=== PATIENT | female | born 1945 | race Caucasian/White ===

== ENCOUNTER → 2017-03-13 | Outpatient (CLI) | payer OTHER ==
[~2017-03-13] MED LIST: ALL300; CALC500C70 PO; CYAN500T PO; DOCU-94 PO; FOLI1TAB7 PO; FRS/40 PO; LEVE750T PO; LEVO75TA5 PO; NORT50CA PO; NXM/40 PO; POLY335019 PO; POTA20TA16 PO; SIMV40TA2 PO; ZONI100C39 PO; [UNRECOGNIZED DRUG - CODE] OR
[2017-03-13 09:45] LABS: BASO % 0.2 %; BASO ABS # 0.01 K/uL (0-0.2); COMPLETE YES; EOS % 0.5 %; HEMATOCRIT 35.1 % (37-52); IG% 0.2 %; LYMPH % 47.3 %; LYMPH ABS # 1.92 K/uL (1.2-3.4); MEAN CELL VOLUME 98.9 fL (80-100); MEAN CORPUSCULAR HEMOGLOBIN 33.2 pg (25-34); MEAN CORPUSCULAR HGB CONC 33.6 g/dl (32-36); MEAN PLATELET VOLUME 9.9 fL (7.4-10.4); MONO % 8.9 %; NEUT % 42.9 %; PLATELET COUNT 147 K/uL (130-400); RED BLOOD COUNT 3.55 M/uL (4.2-6.1); WHITE BLOOD COUNT 4.06 K/uL (4.8-10.8)
[2017-03-13 09:56] LABS: ALT/SGPT 20 U/L (12-78); AST/SGOT 15 U/L (15-37); BLOOD UREA NITROGEN 13 mg/dl (7-18); BUN/CREATININE RATIO 18.8 (10-20); CALCIUM 8.8 mg/dl (8.5-10.1); CARBON DIOXIDE 28 mmol/L (21-32); CHLORIDE 110 mmol/L (98-107); CREATININE 0.67 mg/dl (0.60-1.40); GLUCOSE 92 mg/dl (70-99); POTASSIUM 3.3 mmol/L (3.5-5.1); SODIUM 142 mmol/L (136-145)
[2017-03-13 10:06] LABS: ALB/GLOB RATIO 1.1 (0.9-2); ALKALINE PHOSPHATASE 119 U/L (45-117)
== END | disposition home or self-care (01) ==
LOC: EDSEX → C.LABSPEC 09:24
PROVIDERS: ATTEND Family Medicine
DX: F44.5 Conversion disorder with seizures or convulsions (principal); E03.9 Hypothyroidism, unspecified

== ENCOUNTER → 2017-03-16 | Outpatient (CLI) | payer OTHER | END | disposition home or self-care (01) | LOC: EDSEX → C.LABUPBEA 09:59 | PROVIDERS: ATTEND Nurse Practitioner Family | DX: F44.5 Conversion disorder with seizures or convulsions (principal) ==

== ENCOUNTER → 2017-03-20 | Outpatient (CLI) | payer OTHER | LOC: C.LABUPBEA 09:04 | PROVIDERS: ATTEND Nurse Practitioner Family | DX: M62.81 Muscle weakness (generalized) (principal) ==

== ENCOUNTER → 2017-03-27 | Outpatient (CLI) | payer OTHER ==
[2017-03-27 10:16] LABS: BLOOD UREA NITROGEN 19 mg/dl (7-18); BUN/CREATININE RATIO 28.9 (10-20); CALCIUM 9.4 mg/dl (8.5-10.1); CARBON DIOXIDE 30 mmol/L (21-32); CHLORIDE 109 mmol/L (98-107); CREATININE 0.66 mg/dl (0.60-1.20); GLUCOSE 96 mg/dl (70-99); POTASSIUM 3.6 mmol/L (3.5-5.1); SODIUM 142 mmol/L (136-145)
== END ==
LOC: C.LABUPBEA 08:57
PROVIDERS: ATTEND Nurse Practitioner Family
DX: F44.5 Conversion disorder with seizures or convulsions (principal)

== ENCOUNTER → 2017-04-08 | Outpatient (CLI) | payer OTHER ==
[2017-04-08 10:25] LABS: BLOOD UREA NITROGEN 15 mg/dl (7-18); BUN/CREATININE RATIO 20.6 (10-20); CALCIUM 9.6 mg/dl (8.5-10.1); CARBON DIOXIDE 28 mmol/L (21-32); CHLORIDE 108 mmol/L (98-107); CREATININE 0.72 mg/dl (0.60-1.20); GLUCOSE 96 mg/dl (70-99); POTASSIUM 3.8 mmol/L (3.5-5.1); SODIUM 143 mmol/L (136-145)
== END ==
LOC: C.LABUPBEA 09:16
PROVIDERS: ATTEND Nurse Practitioner Family
DX: E83.118 Other hemochromatosis (principal); F44.5 Conversion disorder with seizures or convulsions

== ENCOUNTER → 2017-04-15 | Outpatient (CLI) | payer OTHER ==
[2017-04-15 08:32] LABS: HEMATOCRIT 35.6 % (37-47); MEAN CELL VOLUME 103.5 fL (80-100); MEAN CORPUSCULAR HEMOGLOBIN 34.6 pg (25-34); MEAN CORPUSCULAR HGB CONC 33.4 g/dl (32-36); MEAN PLATELET VOLUME 10.6 fL (7.4-10.4); PLATELET COUNT 177 K/uL (130-400); RED BLOOD COUNT 3.44 M/uL (4.2-5.4); WHITE BLOOD COUNT 4.76 K/uL (4.8-10.8)
== END ==
LOC: C.LABCC 07:51
PROVIDERS: ATTEND Internal Medicine
DX: E83.119 Hemochromatosis, unspecified (principal)

== ENCOUNTER → 2017-04-21 | Outpatient (CLI) | payer OTHER ==
[2017-04-21 11:01] LABS: BASO % 0.4 %; BASO ABS # 0.02 K/uL (0-0.2); COMPLETE YES; EOS % 0.7 %; HEMATOCRIT 36.5 % (37-47); IG% 0.2 %; LYMPH % 43.4 %; LYMPH ABS # 1.99 K/uL (1.2-3.4); MEAN CELL VOLUME 104.3 fL (80-100); MEAN CORPUSCULAR HEMOGLOBIN 33.7 pg (25-34); MEAN CORPUSCULAR HGB CONC 32.3 g/dl (32-36); MEAN PLATELET VOLUME 10.4 fL (7.4-10.4); MONO % 9.6 %; NEUT % 45.7 %; PLATELET COUNT 176 K/uL (130-400); WHITE BLOOD COUNT 4.59 K/uL (4.8-10.8)
[2017-04-21 11:22] LABS: ALT/SGPT 20 U/L (12-78); BLOOD UREA NITROGEN 13 mg/dl (7-18); BUN/CREATININE RATIO 18.6 (10-20); CALCIUM 9.2 mg/dl (8.5-10.1); CARBON DIOXIDE 28 mmol/L (21-32); CHLORIDE 110 mmol/L (98-107); GLUCOSE 96 mg/dl (70-99); POTASSIUM 3.6 mmol/L (3.5-5.1); SODIUM 142 mmol/L (136-145)
[2017-04-21 11:33] LABS: ALB/GLOB RATIO 1.1 (0.9-2); ALKALINE PHOSPHATASE 97 U/L (45-117); AST/SGOT 19 U/L (15-37)
== END | disposition home or self-care (01) ==
LOC: C.LABCC 08:43
PROVIDERS: ATTEND Internal Medicine
DX: R56.9 Unspecified convulsions (principal); Z51.81 Encounter for therapeutic drug level monitoring; Z79.899 Other long term (current) drug therapy

== ENCOUNTER → 2017-04-29 | Day surgery (SDC) | payer OTHER ==
[~2017-04-29] VITALS: Ht 165.1 cm; Wt 71.8 kg
[~2017-04-29] MED LIST changes: +LIDOCAINE HCL 2% 2 ML VIAL (20MG/ML) ONE; +PROPOFOL IV EMULSION 10 MG/ML 20 ML VIAL IV ONE; +SODIUM CHLORIDE 0.9% 500ML 500 ML IV ONE
--- NOTE | 2017-04-29 10:05 | Endo History and Physical ---
History & Physical Date of Service: Apr 29, 2017. Chief Complaint: Odynophagia Referring Physician: Adrienne History of Present Illness 71 yo CF who presents for EGD secondary to Odynophagia. Physical Exam General Appearance: WD/WN, no apparent distress Respiratory/Chest: Auscultation: breath sounds normal Cardiovascular: Heart Auscultation: RRR Abdomen: Bowel Sounds: normal Inspection & Palpation: soft, non-distended, no tenderness, guarding & rebound Assessment and Plan Assessment: 71 yo CF who presents for EGD secondary to Odynophagia. Plan: Proceed with colonoscopy.
[2017-04-29 10:37] VITALS: Ht 165.1 cm; Wt 71.8 kg
--- NOTE | 2017-04-29 11:28 | Discharge Instructions ---
Endoscopy Patient Instructions Date / Procedure(s) Performed Apr 29, 2017. EGD Allergy Information Coded Allergies: Hydrocortisone (Unverified Allergy, Intermediate, DELIRIUM, 04/29/17) Phenobarbital (Unverified Allergy, Intermediate, RASH, 04/29/17) Acetaminophen (Unverified Allergy, Unknown, GI SYMPTOMS, 04/29/17) states due to liver problems Uncoded Allergies: LIMICTAL (Allergy, Intermediate, RASH, 04/29/17) Discharge Date / Findings Apr 29, 2017. Brushings for Anita esophagitis Medication Instructions Stopped Medication(s): ALL MEDICATION GIVEN AT 0830 OK to resume all medications today as prescribed Reported Home Medications Medications Dose Route/Sig Max Daily Dose Days Date Category Miralax (Polyethylene Glycol 3350) 1 Pow 17 Gm PO DAILY 04/29/17 Reported Os-Marco A 500 Plus D (Calcium/Vitamin D) Tab 1 Tab PO DAILY 04/29/17 Reported Keppra (Levetiracetam) 750 Mg Tab 1,500 Mg PO BID 04/29/17 Reported Zonegran (Zonisamide) 100 Mg Cap 400 Mg PO HS 04/29/17 Reported Lasix (Furosemide) 40 Mg Tab 40 Mg PO BID 04/29/17 Reported Vitamin B-12 (Cyanocobalamin) 500 Mcg Tab 500 Mcg PO DAILY 04/29/17 Reported Klor-Con (Potassium Chloride) 20 Meq Tabcr 20 Meq PO TID 04/29/17 Reported Vimpat (Lacosamide) 200 Mg/20 Ml Inj OR BID 04/29/17 Reported Levothyroxine Sodium 75 Mcg Tab 1 Tab PO DAILY 30 04/29/17 Reported Zocor (Simvastatin) 40 Mg Tab 40 Mg PO QPM 04/29/17 Reported Pamelor (Nortriptyline HCl) 50 Mg Cap 50 Mg PO HS 04/29/17 Reported Nexium (Esomeprazole Magnesium) 40 Mg Capcr 40 Mg PO DAILY 04/29/17 Reported Folvite (Folic Acid) 1 Mg Tab 1 Tab PO DAILY 90 04/29/17 Reported Colace (Docusate Sodium) 100 Mg Cap 1 Cap PO DAILY 15 04/29/17 Reported Allopurinol 300 Mg Tab BID 04/29/17 Reported Provider Instructions Activity Restrictions - No exercising or heavy lifting for 24 hours. - Do not drink alcohol the day of the procedure. - Do not drive a car or operate machinery until the day after the procedure. - Do not make any important decisions or sign important papers in 24 hours after the procedure. Following Day: - Return to full activity which may include returning to work/school. Diet Start your diet with liquids and light foods (jello, soup, juice, toast). Then eat your usual diet if not nauseated. Treatment For Common After Affects For mild abdominal pain, bloating, or excessive gas: - Rest - Eat lightly - Lie on right side Follow-Up Information Follow-up with DR. MCCORD as scheduled Anesthesia Information What You Should Know You have had a procedure that required some medicine to reduce anxiety and discomfort. This treatment is called moderate sedation. After receiving the treatment, you may be sleepy, but you will be able to breathe on your own. The effects of the treatment may last for several hours. Follow these instructions along with Activity/Diet recommendations noted above: * Do NOT do anything where dizziness or clumsiness would be dangerous. * Rest quietly at home today, then you can be up and about tomorrow. * Have a responsible person stay with you the rest of today. * You may have had an I.V. today. If so, you may take the dressing off later today. Recommendations Call your doctor if: * Trouble breathing * Continuous vomiting for more than 24 hours * Temperature above 101 degrees * Severe abdominal pain or bloating * Pain not relieved by pain medicine ordered * There is increased drainage or redness from any incision * A large amount of rectal bleeding greater than 2-3 tablespoons. (If you had a polyp/s removed or have hemorrhoids, a small amount of blood - from the rectum is to be expected.) * You have any unanswered questions or concerns. IN THE EVENT OF A SERIOUS EMERGENCY, GO TO THE NEAREST EMERGENCY ROOM Your discharge instructions were prepared by provider Yeison Brewer. Patient Instructions Signature Page Faye Aragon Patient (or Guardian) Signature/Date: I have read and understand the instructions given to me by my caregivers. Caregiver/RN/Doctor Signature/Date: The above-named patient and/or guardian has received patient instructions on this date. + Original Patient Signature Page (only) stays with chart. Please make copy for patient.
--- NOTE | 2017-04-29 11:50 | Anesthesiology Progress Note ---
Anesthesia Post Op Note Date & Time Apr 29, 2017 at 11:50 Vital Signs Pain Intensity: 0 Vital Signs Past 12 Hours Date Time Temp Pulse Resp B/P (MAP) Pulse Ox O2 Delivery O2 Flow Rate FiO2 04/29/17 11:43 65 18 106/73 (84) 100 Room Air 04/29/17 11:28 70 18 121/68 (85) 98 Room Air 04/29/17 10:53 36.6 64 18 146/86 (106) 98 Room Air Notes Mental Status: alert / awake / arousable, participated in evaluation Pt Amnestic to Procedure: Yes Nausea / Vomiting: adequately controlled Pain: adequately controlled Airway Patency, RR, SpO2: stable & adequate BP & HR: stable & adequate Hydration State: stable & adequate Anesthetic Complications: no major complications apparent
[2017-04-29 11:58] VITALS: BP 135/81; PULSE 64; O2SAT 99
--- NOTE | 2017-04-29 12:13 | GI REPORT ---
Procedure Date: 04/29/2017 10:50 AM Procedure: Upper GI endoscopy Indications: Odynophagia Medicines: Monitored Anesthesia Care Complications: No immediate complications. Estimated Blood Loss: Estimated blood loss: none. Procedure: Pre-Anesthesia Assessment: - Prior to the procedure, a History and Physical was performed, and patient medications and allergies were reviewed. The patient's tolerance of previous anesthesia was also reviewed. The risks and benefits of the procedure and the sedation options and risks were discussed with the patient. All questions were answered, and informed consent was obtained. Prior Anticoagulants: The patient has taken aspirin, last dose was 1 day prior to procedure. ASA Grade Assessment: III - A patient with severe systemic disease. After reviewing the risks and benefits, the patient was deemed in satisfactory condition to undergo the procedure. After obtaining informed consent, the endoscope was passed under direct vision. Throughout the procedure, the patient's blood pressure, pulse, and oxygen saturations were monitored continuously. The scope was introduced through the mouth, and advanced to the second part of duodenum. The upper GI endoscopy was accomplished without difficulty. The patient tolerated the procedure well. Findings: Patchy candidiasis was found in the upper third of the esophagus, in the middle third of the esophagus and at the gastroesophageal junction. Cells for cytology were obtained by brushing. The stomach was normal. The examined duodenum was normal. Impression: - Monilial esophagitis. Cells for cytology obtained. - Normal stomach. - Normal examined duodenum. Recommendation: - Resume previous diet. - Continue present medications. - Await results from Esophageal brushings. - Return to primary care physician as previously scheduled. Yeison Brewer, DO 04/29/2017 12:12:22 PM This report has been signed electronically. Note Initiated On: 04/29/2017 10:50 AM I attest to the content of the Intraoperative Record and orders documented therein, exceptions below
== END | disposition home or self-care (01) ==
LOC: C.GI 09:34
PROVIDERS: ATTEND Internal Medicine
DX: B37.81 Candidal esophagitis (principal); R13.10 Dysphagia, unspecified

== ENCOUNTER → 2017-05-11 | Outpatient (CLI) | payer OTHER ==
[~2017-05-11] MED LIST changes: -LIDOCAINE HCL 2% 2 ML VIAL (20MG/ML) ONE; -PROPOFOL IV EMULSION 10 MG/ML 20 ML VIAL IV ONE; -SODIUM CHLORIDE 0.9% 500ML 500 ML IV ONE
[2017-05-11 08:27] LABS: HEMATOCRIT 35.4 % (37-47); MEAN CELL VOLUME 102.3 fL (80-100); MEAN CORPUSCULAR HGB CONC 34.2 g/dl (32-36); MEAN PLATELET VOLUME 10.2 fL (7.4-10.4); PLATELET COUNT 152 K/uL (130-400); RED BLOOD COUNT 3.46 M/uL (4.2-5.4); WHITE BLOOD COUNT 4.68 K/uL (4.8-10.8)
[2017-05-11 08:35] LABS: BLOOD UREA NITROGEN 17 mg/dl (7-18); CREATININE 0.78 mg/dl (0.60-1.20)
[2017-05-11 08:40] LABS: FERRITIN 52.1 ng/ml (8.0-388.0)
== END ==
LOC: C.LABCC 08:08
PROVIDERS: ATTEND Internal Medicine
DX: Z00.00 Encounter for general adult medical examination without abnormal findings (principal); G40.909 Epilepsy, unspecified, not intractable, without status epilepticus; E83.119 Hemochromatosis, unspecified

== ENCOUNTER → 2017-05-14 | Outpatient (CLI) | payer OTHER ==
--- NOTE | 2017-05-18 12:16 | EEG Procedure Note ---
EEG Procedure Note Date of Service May 14, 2017. Start / End Times Start Time: 1:18 PM End Time: 1:38 PM Referring Physician Kadie Adame History This is a 71-year-old female with a history of generalized seizures. EEG for further evaluation of possible seizure etiology. Pertinent home medications: Vimpat, zonisamide, Keppra Home Medication List Scheduled Allopurinol (Allopurinol), BID Calcium/Vitamin D (Os-Marco A 500 Plus D), 1 TAB PO DAILY Cyanocobalamin (Vitamin B-12), 500 MCG PO DAILY Docusate Sodium (Colace), 1 CAP PO DAILY Esomeprazole Magnesium (Nexium), 40 MG PO DAILY Folic Acid (Folvite), 1 TAB PO DAILY Furosemide (Lasix), 40 MG PO BID Lacosamide (Vimpat), OR BID Levetiracetam (Keppra), 1,500 MG PO BID Levothyroxine Sodium (Levothyroxine Sodium), 1 TAB PO DAILY Nortriptyline (Pamelor), 50 MG PO HS Polyethylene Glycol 3350 (Miralax), 17 GM PO DAILY Potassium Ext Rel (Klor-Con), 20 MEQ PO TID Simvastatin (Zocor), 40 MG PO QPM Zonisamide (Zonegran), 400 MG PO HS Description This is a 21 electrode EEG with a single channel dedicated to limited EKG. The electrodes were placed in accordance with the International 10-20 system. At the start of the recording the patient was in an awake state. Background was poorly organized with a poorly formed anterior to posterior gradient. Background was composed of predominantly symmetric moderate amplitude theta frequencies with intermixed alpha and beta frequencies. There was a symmetric well-formed moderate amplitude 7-8 Hz posterior dominant rhythm that was reactive to eye opening and closure. Hyperventilation was not done. Intermittent photic stimulation was also not done due to patient sensitivity to light. There was no state changes or sleep transients. There was occasional, at times poorly formed, higher amplitude, frontal predominant, generalized spike and slow wave discharges. In addition there was also higher amplitude, rare F4/Fp2 and F3/Fp1, independent unilateral sharp waves. Interpretation This is an abnormal routine EEG secondary to: 1) mild background disorganization and slowing 2) occasional frontal predominant generalized spike and slow wave discharges 3) rare independent right frontal and left frontal sharp waves There was no electrographic seizures. Clinical Correlation This EEG indicates: 1) Mild encephalopathy of nonspecific etiology 2) occasional generalized epileptiform discharges and rare independent bifrontal epileptiform discharges suggest a lower seizure threshold and increased epileptogenic potential. While the predominant discharges did suggest a generalized epilepsy, also had rare independent bi-frontal epileptiform discharges that could indicate multifocal epilepsy.
== END | disposition home or self-care (01) ==
LOC: C.NEUR 13:10
PROVIDERS: ATTEND Psychiatry & Neurology Neurology
DX: G40.309 Generalized idiopathic epilepsy and epileptic syndromes, not intractable, without status epilepticus (principal)

== ENCOUNTER → 2017-05-15 | Outpatient (CLI) | payer OTHER ==
[~2017-05-15] MED LIST changes: +GADAVIST IV PRN
--- NOTE | 2017-05-15 09:55 | DIAGNOSTIC IMAGING REPORT ---
MRI OF THE BRAIN WITHOUT AND WITH IV CONTRAST SEIZURE PROTOCOL CLINICAL HISTORY: Generalized epilepsy. COMPARISON STUDY: No previous studies for comparison. TECHNIQUE: Utilizing a 1.5 Becky magnet and dedicated coil, multiplanar, multiecho imaging of the brain was performed pre and postcontrast administration. IV administration of 7 mL of Gadavist contrast was uneventful. Thin cut coronal T2 imaging was performed according to seizure protocol. FINDINGS: There are no areas of restricted diffusion. No acute intracranial hemorrhage, midline shift or mass effect is present. Brain volume is normal. Ventricular system is normal. Basilar cisterns are patent. No extra axial collections are present. Flow-voids for the major intracranial vessels are present. Moderate white matter T2 hyperintensity is noted, predominantly periventricular in distribution. No intracranial mass or pathologic enhancement is identified. There is no MRI evidence of mesial temporal sclerosis. Calvarial signal is normal. There is a small amount of fluid within the left mastoid air cells. IMPRESSION: 1. No acute intracranial findings. 2. No intracranial mass or pathologic enhancement. 3. Moderate white matter T2 hyperintense foci, predominantly periventricular in distribution. This likely reflects small vessel disease. 4. Small amount of fluid within the left mastoid air cells. Electronically signed by: Brandt Bhatt M.D. 05/15/2017 9:53 AM Dictated Date/Time: 05/15/2017 9:48 AM
== END ==
LOC: C.MRIBC 07:37
PROVIDERS: ATTEND Psychiatry & Neurology Neurology
DX: G40.309 Generalized idiopathic epilepsy and epileptic syndromes, not intractable, without status epilepticus (principal)

== ENCOUNTER → 2017-05-18 | Outpatient (CLI) | payer OTHER ==
[~2017-05-18] MED LIST changes: -GADAVIST IV PRN
[2017-05-18 09:59] LABS: HEMATOCRIT 34.7 % (37-47); MEAN CELL VOLUME 101.8 fL (80-100); MEAN CORPUSCULAR HEMOGLOBIN 35.8 pg (25-34); MEAN CORPUSCULAR HGB CONC 35.2 g/dl (32-36); MEAN PLATELET VOLUME 10.3 fL (7.4-10.4); PLATELET COUNT 144 K/uL (130-400); RED BLOOD COUNT 3.41 M/uL (4.2-5.4); WHITE BLOOD COUNT 4.58 K/uL (4.8-10.8)
== END ==
LOC: C.LABCC 09:26
PROVIDERS: ATTEND Internal Medicine
DX: E83.119 Hemochromatosis, unspecified (principal)

== ENCOUNTER → 2017-05-21 | Outpatient (CLI) | payer OTHER ==
--- NOTE | 2017-05-21 15:10 | DIAGNOSTIC IMAGING REPORT ---
PA CHEST RADIOGRAPH AND UPRIGHT AND SUPINE AP RADIOGRAPHS OF THE ABDOMEN CLINICAL HISTORY: Constipation. COMPARISON STUDY: No previous studies for comparison. FINDINGS: A right internal jugular [id number] is in place. A left-sided electronic device is noted. There is no pneumothorax or pleural effusion. There is no consolidation to suggest pneumonia. Pulmonary vascularity is normal. Cardiomediastinal silhouette is normal. There is no free air. The bowel gas pattern is normal. There is a moderate amount of stool within the colon with minimal stool within the rectum. IMPRESSION: 1. No free air or evidence of bowel obstruction. 2. Moderate amount stool within the colon and minimal stool within the rectum. 3. No acute cardiopulmonary findings. Electronically signed by: Brandt Bhatt M.D. 05/21/2017 3:08 PM Dictated Date/Time: 05/21/2017 3:07 PM
== END | disposition home or self-care (01) ==
LOC: C.RAD1850 14:42
PROVIDERS: ATTEND Physician Assistant
DX: K59.00 Constipation, unspecified (principal)

== ENCOUNTER → 2017-07-08 | Day surgery (SDC) | payer OTHER ==
[2017-06-03 10:23] VITALS: Ht 167.6 cm; Wt 71.4 kg
[~2017-07-08] VITALS: Ht 167.6 cm; Wt 71.4 kg
[~2017-07-08] MED LIST changes: -ALL300; +ALL300 PO; +CALC250T2 PO; -CALC500C70 PO; +CHOL1CAP95 PO; -CYAN500T PO; +CYAN500T13 PO; +DONE5TAB9 PO; +FLUC200T PO; +LACO200T PO; +LACT10SO30 PO; +LEVE500T13 PO; -LEVE750T PO; +LIDOCAINE HCL 2% 2 ML VIAL (20MG/ML) ONE; +LORA2INJ19 IM; +PROPOFOL IV EMULSION 10 MG/ML 20 ML VIAL IV ONE; +SENN-61 PO; +SODIUM CHLORIDE 0.9% 500ML 500 ML IV ONE; -[UNRECOGNIZED DRUG - CODE] OR
--- NOTE | 2017-07-08 08:46 | Endo History and Physical ---
History & Physical Date of Service: Jul 08, 2017. Chief Complaint: Change of bowel habits Referring Physician: Dr. Sharp History of Present Illness 72 yo CF who presents for colonoscopy secondary to change in bowel habits. Past Surgical History Hx Cardiac Surgery: No Hx Internal Defibrillator: No Hx Pacemaker: No Hx Abdominal Surgery: No Hx of Implantable Prosthesis: No Hx Post-Op Nausea and Vomiting: No Hx Cancer Surgery: No Hx Thoracic Surgery: No Hx Orthopedic: No Hx Urinary Tract Surgery: No Social History Smoking Status: Never Smoker Hx Substance Use: No Hx Alcohol Use: No Allergies Coded Allergies: Hydrocortisone (Unverified Allergy, Intermediate, DELIRIUM, 06/03/17) Phenobarbital (Unverified Allergy, Intermediate, RASH, 06/03/17) Acetaminophen (Unverified Allergy, Unknown, GI SYMPTOMS, 06/03/17) states due to liver problems Lamotrigine (Verified Allergy, Unknown, RASH, 06/03/17) Current Medications Reported Home Medications Medications Dose Route/Sig Max Daily Dose Days Date Category Dose Instructions Keppra (Levetiracetam) 500 Mg Tab 2,000 Mg PO BID 14 06/13/17 Rx Lasix (Furosemide) 40 Mg Tab 40 Mg PO DAILY 14 06/13/17 Rx Klor-Con (Potassium Chloride) 20 Meq Tabcr 20 Meq PO BID 14 06/13/17 Rx Ativan (Lorazepam) 2 Mg/Ml Inj 1 Mg IM DAILY PRN 06/03/17 Reported Aricept (Donepezil HCl) 5 Mg Tab 5 Mg PO QAM 06/03/17 Reported Senokot (Senna) 8.6 Mg Tab 2 Tab PO BID 06/03/17 Reported Oyst-Marco A D (Calcium Carbonate-Vitamin D) 1 Tab Tab 1 Tab PO BID 06/03/17 Reported Levothyroxine Sodium 75 Mcg Tab 75 Mcg PO QAM 06/03/17 Reported Zonegran (Zonisamide) 100 Mg Cap 400 Mg PO HS 06/03/17 Reported Vitamin B12 500MCG (Cyanocobalamin) 500 Mcg Tab 500 Mcg PO QAM 06/03/17 Reported Vitamin D3 (Cholecalciferol) 50,000 Unit Cap 50,000 Units PO WK 06/03/17 Reported THURSDAY Vimpat (Lacosamide) 200 Mg Tab 200 Mg PO BID 06/03/17 Reported Lactulose (Lactulose (Encephalopathy)) 10 Gm/15 Ml Corinna 30 Ml PO QAM 06/03/17 Reported Diflucan (Fluconazole) 200 Mg Tab 200 Mg PO QAM 06/03/17 Reported Miralax (Polyethylene Glycol 3350) 1 Pow Pow 17 Gm PO QAM 06/03/17 Reported Nexium (Esomeprazole Magnesium) 40 Mg Capcr 40 Mg PO QAM 06/03/17 Reported Zocor (Simvastatin) 40 Mg Tab 40 Mg PO QPM 04/29/17 Reported ON HOLD FROM 06/04/17 TO 06/20/17. Pamelor (Nortriptyline HCl) 50 Mg Cap 50 Mg PO HS 04/29/17 Reported Folvite (Folic Acid) 1 Mg Tab 1 Mg PO QAM 04/29/17 Reported Colace (Docusate Sodium) 100 Mg Cap 100 Mg PO DAILY 04/29/17 Reported Allopurinol 300 Mg Tab PO BID 04/29/17 Reported Vital Signs Weight (Kilograms): 71.36 Height (Feet): 0 Height (Inches): 66 Physical Exam General Appearance: WD/WN, no apparent distress Respiratory/Chest: Auscultation: breath sounds normal Cardiovascular: Heart Auscultation: RRR Abdomen: Bowel Sounds: normal Inspection & Palpation: soft, non-distended, no tenderness, guarding & rebound Assessment and Plan Assessment: 72 yo CF who presents for colonoscopy secondary to change in bowel habits. Plan: Proceed with colonoscopy.
--- NOTE | 2017-07-08 09:54 | Discharge Instructions ---
Endoscopy Patient Instructions Date / Procedure(s) Performed Jul 08, 2017. Colonoscopy Allergy Information Coded Allergies: Hydrocortisone (Unverified Allergy, Intermediate, DELIRIUM, 06/03/17) Phenobarbital (Unverified Allergy, Intermediate, RASH, 06/03/17) Acetaminophen (Unverified Allergy, Unknown, GI SYMPTOMS, 06/03/17) states due to liver problems Lamotrigine (Verified Allergy, Unknown, RASH, 06/03/17) Discharge Date / Findings Jul 08, 2017. Colon polyps Diverticulosis Internal hemorrhoids Medication Instructions OK to resume all medications today as prescribed Reported Home Medications Medications Dose Route/Sig Max Daily Dose Days Date Category Dose Instructions Keppra (Levetiracetam) 500 Mg Tab 2,000 Mg PO BID 14 06/13/17 Rx Lasix (Furosemide) 40 Mg Tab 40 Mg PO DAILY 14 06/13/17 Rx Klor-Con (Potassium Chloride) 20 Meq Tabcr 20 Meq PO BID 14 06/13/17 Rx Ativan (Lorazepam) 2 Mg/Ml Inj 1 Mg IM DAILY PRN 06/03/17 Reported Aricept (Donepezil HCl) 5 Mg Tab 5 Mg PO QAM 06/03/17 Reported Senokot (Senna) 8.6 Mg Tab 2 Tab PO BID 06/03/17 Reported Oyst-Marco A D (Calcium Carbonate-Vitamin D) 1 Tab Tab 1 Tab PO BID 06/03/17 Reported Levothyroxine Sodium 75 Mcg Tab 75 Mcg PO QAM 06/03/17 Reported Zonegran (Zonisamide) 100 Mg Cap 400 Mg PO HS 06/03/17 Reported Vitamin B12 500MCG (Cyanocobalamin) 500 Mcg Tab 500 Mcg PO QAM 06/03/17 Reported Vitamin D3 (Cholecalciferol) 50,000 Unit Cap 50,000 Units PO WK 06/03/17 Reported THURSDAY Vimpat (Lacosamide) 200 Mg Tab 200 Mg PO BID 06/03/17 Reported Lactulose (Lactulose (Encephalopathy)) 10 Gm/15 Ml Corinna 30 Ml PO QAM 06/03/17 Reported Diflucan (Fluconazole) 200 Mg Tab 200 Mg PO QAM 06/03/17 Reported Miralax (Polyethylene Glycol 3350) 1 Pow Pow 17 Gm PO QAM 06/03/17 Reported Nexium (Esomeprazole Magnesium) 40 Mg Capcr 40 Mg PO QAM 06/03/17 Reported Zocor (Simvastatin) 40 Mg Tab 40 Mg PO QPM 04/29/17 Reported ON HOLD FROM 06/04/17 TO 06/20/17. Pamelor (Nortriptyline HCl) 50 Mg Cap 50 Mg PO HS 04/29/17 Reported Folvite (Folic Acid) 1 Mg Tab 1 Mg PO QAM 04/29/17 Reported Colace (Docusate Sodium) 100 Mg Cap 100 Mg PO DAILY 04/29/17 Reported Allopurinol 300 Mg Tab PO BID 04/29/17 Reported Provider Instructions Activity Restrictions - No exercising or heavy lifting for 24 hours. - Do not drink alcohol the day of the procedure. - Do not drive a car or operate machinery until the day after the procedure. - Do not make any important decisions or sign important papers in 24 hours after the procedure. Following Day: - Return to full activity which may include returning to work/school. Diet Start your diet with liquids and light foods (jello, soup, juice, toast). Then eat your usual diet if not nauseated. Treatment For Common After Affects For mild abdominal pain, bloating, or excessive gas: - Rest - Eat lightly - Lie on right side Follow-Up Information Follow-up with as scheduled Anesthesia Information What You Should Know You have had a procedure that required some medicine to reduce anxiety and discomfort. This treatment is called moderate sedation. After receiving the treatment, you may be sleepy, but you will be able to breathe on your own. The effects of the treatment may last for several hours. Follow these instructions along with Activity/Diet recommendations noted above: * Do NOT do anything where dizziness or clumsiness would be dangerous. * Rest quietly at home today, then you can be up and about tomorrow. * Have a responsible person stay with you the rest of today. * You may have had an I.V. today. If so, you may take the dressing off later today. Recommendations Call your doctor if: * Trouble breathing * Continuous vomiting for more than 24 hours * Temperature above 101 degrees * Severe abdominal pain or bloating * Pain not relieved by pain medicine ordered * There is increased drainage or redness from any incision * A large amount of rectal bleeding greater than 2-3 tablespoons. (If you had a polyp/s removed or have hemorrhoids, a small amount of blood - from the rectum is to be expected.) * You have any unanswered questions or concerns. IN THE EVENT OF A SERIOUS EMERGENCY, GO TO THE NEAREST EMERGENCY ROOM Your discharge instructions were prepared by provider Yeison Brewer. Patient Instructions Signature Page Faye Aragon Patient (or Guardian) Signature/Date: I have read and understand the instructions given to me by my caregivers. Caregiver/RN/Doctor Signature/Date: The above-named patient and/or guardian has received patient instructions on this date. + Original Patient Signature Page (only) stays with chart. Please make copy for patient.
--- NOTE | 2017-07-08 10:09 | GI REPORT ---
Procedure Date: 07/08/2017 8:48 AM Procedure: Colonoscopy Indications: Change in bowel habits Medicines: Monitored Anesthesia Care Complications: No immediate complications. Estimated Blood Loss: Estimated blood loss: none. Procedure: Pre-Anesthesia Assessment: - Prior to the procedure, a History and Physical was performed, and patient medications and allergies were reviewed. The patient's tolerance of previous anesthesia was also reviewed. The risks and benefits of the procedure and the sedation options and risks were discussed with the patient. All questions were answered, and informed consent was obtained. Prior Anticoagulants: The patient has taken aspirin, last dose was 1 day prior to procedure. ASA Grade Assessment: III - A patient with severe systemic disease. After reviewing the risks and benefits, the patient was deemed in satisfactory condition to undergo the procedure. After I obtained informed consent, the scope was passed under direct vision. Throughout the procedure, the patient's blood pressure, pulse, and oxygen saturations were monitored continuously. The scope was introduced through the anus and advanced to the terminal ileum. The colonoscopy was performed without difficulty. The patient tolerated the procedure well. The quality of the bowel preparation was good. The terminal ileum, ileocecal valve, appendiceal orifice, and rectum were photographed. Findings: A 13 mm polyp was found in the cecum. The polyp was flat. The polyp was removed with a saline injection-lift technique using a hot snare. Resection and retrieval were complete. To prevent bleeding after the polypectomy, three hemostatic clips were successfully placed (MR conditional). There was no bleeding at the end of the procedure. Eight sessile polyps were found in the ascending colon. The polyps were 4 to 10 mm in size. These polyps were removed with a hot snare. Resection and retrieval were complete. To prevent bleeding after the polypectomy, one hemostatic clip was successfully placed (MR conditional). There was no bleeding at the end of the procedure. Two sessile polyps were found in the transverse colon. The polyps were 5 to 6 mm in size. These polyps were removed with a hot snare. Resection and retrieval were complete. Three sessile polyps were found in the sigmoid colon. The polyps were 4 to 5 mm in size. These polyps were removed with a hot snare. Resection and retrieval were complete. Multiple small-mouthed diverticula were found in the sigmoid colon. A diffuse area of mild melanosis was found in the entire colon. Non-bleeding internal hemorrhoids were found during retroflexion. The hemorrhoids were small. Impression: - One 13 mm polyp in the cecum, removed using injection-lift and a hot snare. Resected and retrieved. Clips (MR conditional) were placed. - Eight 4 to 10 mm polyps in the ascending colon, removed with a hot snare. Resected and retrieved. Clip (MR conditional) was placed. - Two 5 to 6 mm polyps in the transverse colon, removed with a hot snare. Resected and retrieved. - Three 4 to 5 mm polyps in the sigmoid colon, removed with a hot snare. Resected and retrieved. - Diverticulosis in the sigmoid colon. - Melanosis in the colon. - Non-bleeding internal hemorrhoids. Recommendation: - Resume previous diet. - Continue present medications. - Repeat colonoscopy for surveillance based on pathology results. - Return to primary care physician today. Yeison Brewer, DO 07/08/2017 10:08:38 AM This report has been signed electronically. Note Initiated On: 07/08/2017 8:48 AM I attest to the content of the Intraoperative Record and orders documented therein, exceptions below
[2017-07-08 10:39] VITALS: BP 126/63; PULSE 62; O2SAT 100
--- NOTE | 2017-07-08 10:46 | Anesthesiology Progress Note ---
Anesthesia Post Op Note Date & Time Jul 08, 2017 at 10:46 Vital Signs Pain Intensity: 0 Vital Signs Past 12 Hours Date Time Temp Pulse Resp B/P (MAP) Pulse Ox O2 Delivery O2 Flow Rate FiO2 07/08/17 10:39 62 16 126/63 (84) 100 Room Air 07/08/17 10:18 70 16 137/71 (93) 97 Room Air 07/08/17 09:55 70 16 109/68 (82) 98 Room Air 07/08/17 08:45 36.5 76 16 138/78 (98) 99 Room Air Notes Mental Status: alert / awake / arousable, participated in evaluation Pt Amnestic to Procedure: Yes Nausea / Vomiting: adequately controlled Pain: adequately controlled Airway Patency, RR, SpO2: stable & adequate BP & HR: stable & adequate Hydration State: stable & adequate Anesthetic Complications: no major complications apparent
== END | disposition home or self-care (01) ==
LOC: C.GI 07:56
PROVIDERS: ATTEND Internal Medicine
DX: R19.4 Change in bowel habit (principal); D12.5 Benign neoplasm of sigmoid colon; D12.0 Benign neoplasm of cecum; D12.3 Benign neoplasm of transverse colon; D12.2 Benign neoplasm of ascending colon; K63.89 Other specified diseases of intestine; K57.30 Diverticulosis of large intestine without perforation or abscess without bleeding; K21.9 Gastro-esophageal reflux disease without esophagitis; R56.9 Unspecified convulsions; K64.8 Other hemorrhoids

== ENCOUNTER → 2017-07-20 | Outpatient (CLI) | payer OTHER ==
[~2017-07-20] MED LIST changes: -FOLI1TAB7 PO; +FOLI1TAB8 PO; -LIDOCAINE HCL 2% 2 ML VIAL (20MG/ML) ONE; -PROPOFOL IV EMULSION 10 MG/ML 20 ML VIAL IV ONE; -SODIUM CHLORIDE 0.9% 500ML 500 ML IV ONE
[2017-07-20 08:19] LABS: BASO % 0.8 %; BASO ABS # 0.04 K/uL (0-0.2); COMPLETE YES; EOS % 0.8 %; HEMATOCRIT 33.4 % (37-47); IG% 0.4 %; LYMPH % 39.2 %; LYMPH ABS # 2.06 K/uL (1.2-3.4); MEAN CELL VOLUME 102.8 fL (80-100); MEAN CORPUSCULAR HEMOGLOBIN 35.1 pg (25-34); MEAN CORPUSCULAR HGB CONC 34.1 g/dl (32-36); MEAN PLATELET VOLUME 10.3 fL (7.4-10.4); MONO % 9.7 %; NEUT % 49.1 %; PLATELET COUNT 185 K/uL (130-400); RED BLOOD COUNT 3.25 M/uL (4.2-5.4); WHITE BLOOD COUNT 5.26 K/uL (4.8-10.8)
== END ==
LOC: C.LABCC 07:55
PROVIDERS: ATTEND Internal Medicine
DX: R04.2 Hemoptysis (principal)

== ENCOUNTER → 2017-08-05 | Outpatient (CLI) | payer OTHER ==
[~2017-08-05] MED LIST changes: +ACET-1693 PO; +BENZ10LO2 MT; +BISA10SU3 PR; +DONE10TA12 PO; +KPP/1000 PO; +LACT10SO3 PO; +MOML PO; +OMEP40CA41 PO; +POTA-639 PO; -POTA20TA16 PO; +SODIENE PR
[2017-08-05 10:00] LABS: BASO % 0.5 %; BASO ABS # 0.03 K/uL (0-0.2); EOS % 1.1 %; EOS ABS # 0.06 K/uL (0-0.5); HEMATOCRIT 37.5 % (37-47); HEMOGLOBIN 12.7 g/dL (12.0-16.0); IG# 0.02 K/uL (0.00-0.02); LYMPH % 38.2 %; LYMPH ABS # 2.15 K/uL (1.2-3.4); MEAN CELL VOLUME 102.5 fL (80-100); MEAN CORPUSCULAR HEMOGLOBIN 34.7 pg (25-34); MEAN CORPUSCULAR HGB CONC 33.9 g/dl (32-36); MONO % 10.8 %; MONO ABS # 0.61 K/uL (0.11-0.59); NEUT ABS # 2.76 K/uL (1.4-6.5); PLATELET COUNT 155 K/uL (130-400); RED CELL DISTRIBUTION WIDTH SD 52.8 fL (36.4-46.3); WHITE BLOOD COUNT 5.63 K/uL (4.8-10.8)
== END ==
LOC: C.LABCC 09:19
PROVIDERS: ATTEND Internal Medicine
DX: D64.9 Anemia, unspecified (principal)

== ENCOUNTER → 2017-08-21 | Outpatient (CLI) | payer OTHER ==
[~2017-08-21] MED LIST changes: -ACET-1693 PO; -BENZ10LO2 MT; -BISA10SU3 PR; -DONE10TA12 PO; -KPP/1000 PO; -LACT10SO3 PO; -MOML PO; -OMEP40CA41 PO; -POTA-639 PO; +POTA20TA16 PO; -SODIENE PR
== END | disposition home or self-care (01) ==
LOC: C.LABCC 08:49
PROVIDERS: ATTEND Internal Medicine
DX: G40.909 Epilepsy, unspecified, not intractable, without status epilepticus (principal)

== ENCOUNTER → 2017-08-29 | Outpatient (CLI) | payer OTHER | LOC: C.LABCC 16:45 | PROVIDERS: ATTEND Internal Medicine | DX: R56.9 Unspecified convulsions (principal) ==

== ENCOUNTER → 2017-08-31 | Outpatient (CLI) | payer OTHER ==
[2017-08-31 09:04] LABS: BASO % 0.5 %; BASO ABS # 0.02 K/uL (0-0.2); EOS % 0.7 %; EOS ABS # 0.03 K/uL (0-0.5); HEMOGLOBIN 11.4 g/dL (12.0-16.0); IG# 0.02 K/uL (0.00-0.02); LYMPH % 39.4 %; LYMPH ABS # 1.64 K/uL (1.2-3.4); MEAN CELL VOLUME 103.4 fL (80-100); MEAN CORPUSCULAR HEMOGLOBIN 35.7 pg (25-34); MEAN CORPUSCULAR HGB CONC 34.5 g/dl (32-36); MEAN PLATELET VOLUME 10.5 fL (7.4-10.4); MONO % 12.7 %; MONO ABS # 0.53 K/uL (0.11-0.59); NEUT % 46.2 %; NEUT ABS # 1.92 K/uL (1.4-6.5); PLATELET COUNT 140 K/uL (130-400); RED CELL DISTRIBUTION WIDTH CV 13.9 % (11.5-14.5); RED CELL DISTRIBUTION WIDTH SD 52.4 fL (36.4-46.3); WHITE BLOOD COUNT 4.16 K/uL (4.8-10.8)
[2017-08-31 09:13] LABS: BLOOD UREA NITROGEN 15 mg/dl (7-18); CALCIUM 8.9 mg/dl (8.5-10.1); CARBON DIOXIDE 25 mmol/L (21-32); CREATININE 0.66 mg/dl (0.60-1.20); GLUCOSE 99 mg/dl (70-99); POTASSIUM 3.7 mmol/L (3.5-5.1); SODIUM 142 mmol/L (136-145)
== END ==
LOC: C.LABCC 08:37
PROVIDERS: ATTEND Internal Medicine
DX: R56.9 Unspecified convulsions (principal)

== ENCOUNTER → 2017-09-10 | Outpatient (CLI) | payer OTHER | LOC: C.LABCC 08:45 | PROVIDERS: ATTEND Internal Medicine | DX: R56.9 Unspecified convulsions (principal) ==

== ENCOUNTER → 2017-10-02 | Outpatient (CLI) | payer OTHER ==
[2017-10-02 08:25] LABS: BASO % 0.7 %; BASO ABS # 0.03 K/uL (0-0.2); EOS % 1.6 %; EOS ABS # 0.07 K/uL (0-0.5); HEMATOCRIT 33.2 % (37-47); HEMOGLOBIN 11.7 g/dL (12.0-16.0); IG# 0.02 K/uL (0.00-0.02); LYMPH ABS # 1.77 K/uL (1.2-3.4); MEAN CELL VOLUME 99.7 fL (80-100); MEAN CORPUSCULAR HEMOGLOBIN 35.1 pg (25-34); MEAN CORPUSCULAR HGB CONC 35.2 g/dl (32-36); MEAN PLATELET VOLUME 9.6 fL (7.4-10.4); MONO % 11.8 %; MONO ABS # 0.51 K/uL (0.11-0.59); NEUT % 44.4 %; NEUT ABS # 1.92 K/uL (1.4-6.5); PLATELET COUNT 162 K/uL (130-400); RED CELL DISTRIBUTION WIDTH CV 13.3 % (11.5-14.5); WHITE BLOOD COUNT 4.32 K/uL (4.8-10.8)
[2017-10-02 08:55] LABS: ALBUMIN 3.3 gm/dl (3.4-5.0); ALT/SGPT 21 U/L (12-78); BLOOD UREA NITROGEN 11 mg/dl (7-18); CALCIUM 9.2 mg/dl (8.5-10.1); CARBON DIOXIDE 22 mmol/L (21-32); CREATININE 0.69 mg/dl (0.60-1.20); GLUCOSE 94 mg/dl (70-99); POTASSIUM 3.5 mmol/L (3.5-5.1); SODIUM 141 mmol/L (136-145)
[2017-10-02 09:00] LABS: ALKALINE PHOSPHATASE 94 U/L (45-117); AST/SGOT 13 U/L (15-37); TOTAL PROTEIN 6.3 gm/dl (6.4-8.2)
== END ==
LOC: C.LABCC 07:43
PROVIDERS: ATTEND Internal Medicine
DX: E83.119 Hemochromatosis, unspecified (principal)

== ENCOUNTER → 2017-11-16 | Outpatient (CLI) | payer OTHER ==
[~2017-11-16] MED LIST changes: +POTA-639 PO; -POTA20TA16 PO
== END ==
LOC: C.LABCC 09:20
PROVIDERS: ATTEND Internal Medicine
DX: E03.9 Hypothyroidism, unspecified (principal)

== ENCOUNTER 2020-09-14 12:42 | Inpatient (IN) ==
[2020-09-14 13:30] LABS: Basophils # (auto) 0.03 K/uL (0-0.2); Basophils % (auto) 0.3 %; Hematocrit (blood only) 42.1 % (37-47); Hemoglobin 14.3 g/dL (12.0-16.0); Immature Granulocytes # (auto) 0.12 K/uL (0.00-0.02); Lymphocytes % (auto) 22.6 %; Mean Corpuscular Hemoglobin 33.6 pg (25-34); Mean Corpuscular Volume 98.8 fL (80-100); Mean Platelet Volume 12.2 fL (7.4-10.4); Monocytes # (auto) 1.18 K/uL (0.11-0.59); Monocytes % (auto) 10.3 %; Neutrophils # (auto) 7.57 K/uL (1.4-6.5); Neutrophils % (auto) 65.8 %; Nucleated RBC # (auto) 0.07 K/uL (0-0); Nucleated RBC % (auto) 0.6 %; Platelet Count 168 K/uL (130-400); RDW Coefficient of Variation 15.9 % (11.5-14.5); RDW Standard Deviation 56.1 fL (36.4-46.3); Red Blood Count 4.26 M/uL (4.2-5.4)
[2020-09-14] MEDS ORDERED: SODIUM CHLORIDE 0.9% 1000ML 1,000 ML IV SCH (13:30)
--- NOTE | 2020-09-14 13:35 | Emergency Department Note ---
History of Present Illness General Chief complaint: Confusion Time Seen by Provider: 09/14/20 13:20 Source: RN notes reviewed and other (prison records) Mode of arrival: EMS Limitations: altered mental status History of Present Illness Provider complaint: Altered mental status Onset (ago): unknown This is a 75-year-old female sent in from half-way facility due to concern for altered mental status and recent urinary tract infection. According to report taken from charge nurse, patient's UTI was only recently found and she had not yet been started on any antibiotics. Patient here unable to answer any questions. Labs drawn and sent by nursing staff initially, patient afebrile, mildly hypotensive and tachycardic. A sepsis evaluation was started. Pt seen during a time of high acuity and national emergency pandemic while wearing PPE. Home Medications Medication Instructions Recorded Confirmed Type acetaminophen [Tylenol] 650 mg PO QID PRN 09/14/20 09/14/20 History allopurinol [Zyloprim] 300 mg PO DAILY 09/14/20 09/14/20 History bisacodyl [Dulcolax (bisacodyl)] 10 mg [place] UD PRN 09/14/20 09/14/20 History calcium carbonate 500 mg PO BID 09/14/20 09/14/20 History carboxymethylcellulose sodium 2 drp OPHTHALMIC (EYE) QID 09/14/20 09/14/20 History [TheraTears] ceftriaxone 1 g IM DAILY 09/14/20 09/14/20 History cholecalciferol (vitamin D3) 50,000 unit PO .Q Thu09/14/20 09/14/20 History citalopram 10 mg PO DAILY 09/14/20 09/14/20 History cyanocobalamin (vitamin B-12) 500 mcg PO DAILY 09/14/20 09/14/20 History [Vitamin B-12] donepezil 10 mg PO DAILY 09/14/20 09/14/20 History folic acid 1 mg PO DAILY 09/14/20 09/14/20 History lacosamide [Vimpat] 200 mg PO BID 09/14/20 09/14/20 History lactulose 30 ml PO DAILY 09/14/20 09/14/20 History levetiracetam [Keppra] 1,000 mg PO BID 09/14/20 09/14/20 History levothyroxine 75 mcg PO DAILY 09/14/20 09/14/20 History lidocaine [Lidocaine Pain Relief] 2 patch TOPICAL AMPM 09/14/20 09/14/20 History lorazepam 0.5 mg IM Q6 PRN 09/14/20 09/14/20 History mirtazapine 15 mg PO HS 09/14/20 09/14/20 History polyethylene glycol 3350 [Miralax] 17 g PO DAILY 09/14/20 09/14/20 History promethazine 25 mg PO Q6H PRN 09/14/20 09/14/20 History simvastatin 40 mg PO QPM 09/14/20 09/14/20 History soap [Baby Shampoo] 1 ea TOPICAL UD PRN 09/14/20 09/14/20 History zonisamide 400 mg PO DAILY 09/14/20 09/14/20 History Allergies Allergy/AdvReac Type Severity Reaction Status Date / Time hydrocortisone Allergy Intermediate DELIRIUM Verified 09/04/20 08:34 phenobarbital Allergy Intermediate RASH Verified 09/14/20 15:34 acetaminophen Allergy Unknown GI SYMPTOMS Verified 09/14/20 15:34 lamotrigine Allergy Unknown RASH Verified 09/14/20 15:34 hydrocodone Allergy Unknown Verified 09/14/20 15:34 Past Med/Surg History Medical History Chronic cerebral ischemia Dementia Depression with anxiety Dizziness Generalized epilepsy Generalized osteoarthritis of multiple sites Gout Hereditary hemochromatosis Hypercholesteremia Hypothyroidism Peripheral neuropathy Family History Family/Other No pertinent past medical history Social History Smoking Status: Unknown if ever smoked Preferred Language: French Communication Ability: Impaired Manager Terminal Required: No Beliefs That Will Affect Care: None Current Living Situation: Correction Assistive Devices: None Review of Systems Unobtainable due to cognitive status Physical Exam Vital Signs Vital Signs - 24 hr 09/14/20 12:33 09/14/20 12:49 09/14/20 12:50 Temperature 36.2 C L Temperature Source Axillary Pulse Rate 110 H 107 H 116 H Respiratory Rate 20 28 H 27 H Respiratory Effort / Characteristics Spontaneous Blood Pressure Blood Pressure [Right Arm] Blood Pressure Mean Blood Pressure Mean [Right Arm] Pulse Oximetry 92 Oxygen Delivery Method Room Air Sepsis Recent Fever Within 48 Hours No Sepsis New/Unexplained Change in Mental Status Yes Sepsis Action Taken by Nursing No Action Required 09/14/20 12:53 09/14/20 13:10 09/14/20 13:20 Temperature Temperature Source Pulse Rate 118 H 115 H 117 H Respiratory Rate 28 H 19 15 Respiratory Effort / Characteristics Blood Pressure Blood Pressure [Right Arm] Blood Pressure Mean 112 Blood Pressure Mean [Right Arm] Pulse Oximetry Oxygen Delivery Method Sepsis Recent Fever Within 48 Hours Sepsis New/Unexplained Change in Mental Status Sepsis Action Taken by Nursing 09/14/20 13:29 09/14/20 13:30 09/14/20 13:33 Temperature Temperature Source Pulse Rate 119 H 114 H Respiratory Rate 13 Respiratory Effort / Characteristics Blood Pressure Blood Pressure [Right Arm] 95/68 L Blood Pressure Mean Blood Pressure Mean [Right Arm] 77 Pulse Oximetry 98 Oxygen Delivery Method Room Air Sepsis Recent Fever Within 48 Hours Sepsis New/Unexplained Change in Mental Status Sepsis Action Taken by Nursing 09/14/20 13:45 09/14/20 14:01 09/14/20 14:10 Temperature Temperature Source Pulse Rate 113 H 116 H Respiratory Rate 24 26 H 21 Respiratory Effort / Characteristics Blood Pressure 127/88 Blood Pressure [Right Arm] Blood Pressure Mean 101 Blood Pressure Mean [Right Arm] Pulse Oximetry Oxygen Delivery Method Sepsis Recent Fever Within 48 Hours Sepsis New/Unexplained Change in Mental Status Sepsis Action Taken by Nursing 09/14/20 14:20 09/14/20 14:30 09/14/20 14:40 Temperature Temperature Source Pulse Rate 107 H 110 H 113 H Respiratory Rate 14 19 19 Respiratory Effort / Characteristics Blood Pressure Blood Pressure [Right Arm] Blood Pressure Mean Blood Pressure Mean [Right Arm] Pulse Oximetry Oxygen Delivery Method Sepsis Recent Fever Within 48 Hours Sepsis New/Unexplained Change in Mental Status Sepsis Action Taken by Nursing 09/14/20 14:50 09/14/20 15:02 09/14/20 15:05 Temperature Temperature Source Pulse Rate 113 H 79 Respiratory Rate 16 Respiratory Effort / Characteristics Blood Pressure 106/80 Blood Pressure [Right Arm] Blood Pressure Mean 88 Blood Pressure Mean [Right Arm] Pulse Oximetry Oxygen Delivery Method Sepsis Recent Fever Within 48 Hours Sepsis New/Unexplained Change in Mental Status Sepsis Action Taken by Nursing 09/14/20 15:25 09/14/20 15:28 09/14/20 15:30 Temperature Temperature Source Pulse Rate 108 H Respiratory Rate 13 20 22 Respiratory Effort / Characteristics Blood Pressure 125/75 Blood Pressure [Right Arm] Blood Pressure Mean 91 Blood Pressure Mean [Right Arm] Pulse Oximetry Oxygen Delivery Method Sepsis Recent Fever Within 48 Hours Sepsis New/Unexplained Change in Mental Status Sepsis Action Taken by Nursing 09/14/20 15:31 09/14/20 16:01 Temperature Temperature Source Pulse Rate 105 H Respiratory Rate 17 Respiratory Effort / Characteristics Blood Pressure 106/68 107/63 Blood Pressure [Right Arm] Blood Pressure Mean 80 77 Blood Pressure Mean [Right Arm] Pulse Oximetry Oxygen Delivery Method Sepsis Recent Fever Within 48 Hours Sepsis New/Unexplained Change in Mental Status Sepsis Action Taken by Nursing GENERAL: alert, unwell appearing, well nourished, no distress, non-toxic EYE EXAM: normal conjunctiva, PERRL and EOM's grossly intact OROPHARYNX: no exudate, no erythema, lips, buccal mucosa, and tongue normal and mucous membranes are moist NECK: supple, no nuchal rigidity, no adenopathy, non-tender LUNGS: Clear to auscultation. Normal chest wall mechanics, no w/r/r HEART: no murmurs, S1 normal and S2 normal ABDOMEN: abdomen soft, non-tender, normo-active bowel sounds, no masses, no rebound or guarding. BACK: Back is symmetrical on inspection and there is no deformity, no midline tenderness, no CVA tenderness. SKIN: no rashes and no bruising UPPER EXTREMITIES: upper extremities are grossly normal. FROM, nml pulses b/l. LOWER EXTREMITIES: No pitting edema. FROM, nml pulses b/l. NEURO EXAM: Normal sensorium, cranial nerves II-XII grossly intact, normal speech, no gross weakness of arms, no gross weakness of legs. Gross sensation intact. Course Administered Medications Allopurinol (Allopurinol 300 Mg Tab) 300 mg PO DAILY [facility] Stop: 10/15/20 08:59 Last Admin: 09/16/20 07:30 Dose: 300 mg Documented by: [id number] Admin: 09/15/20 07:34 Dose: 300 mg Documented by: [id number] Artificial Tears (Artificial Tears) 2 drops OP QID [facility] Stop: 10/14/20 20:44 Last Admin: 09/16/20 12:58 Dose: 2 drops Documented by: [id number] Admin: 09/16/20 07:32 Dose: 2 drops Documented by: [id number] Admin: 09/15/20 20:14 Dose: 2 drops Documented by: [id number] Admin: 09/15/20 17:35 Dose: 2 drops Documented by: [id number] Admin: 09/15/20 13:31 Dose: 2 drops Documented by: [id number] Admin: 09/15/20 07:30 Dose: 2 drops Documented by: [id number] Admin: 09/15/20 00:45 Dose: 2 drops Documented by: [id number] Admin: 09/15/20 00:43 Dose: Not Given Documented by: [id number] Calcium Carbonate (Calcium Carbonate 1250mg Tab) 1,250 mg PO BID [facility] Stop: 10/14/20 20:59 Last Admin: 09/16/20 07:33 Dose: 1,250 mg Documented by: [id number] Admin: 09/15/20 20:17 Dose: 1,250 mg Documented by: [id number] Admin: 09/15/20 07:33 Dose: 1,250 mg Documented by: [id number] Admin: 09/15/20 00:43 Dose: Not Given Documented by: [id number] Cephalexin HCl (Cephalexin 500 Mg Cap) 500 mg PO Q12 [facility]; Protocol Stop: 09/25/20 10:59 Last Admin: 09/16/20 07:30 Dose: 500 mg Documented by: [id number] Admin: 09/15/20 20:14 Dose: 500 mg Documented by: [id number] Admin: 09/15/20 14:30 Dose: Not Given Documented by: [id number] Citalopram Hydrobromide (Citalopram 20 Mg Tab) 10 mg PO DAILY [facility] Stop: 10/15/20 08:59 Last Admin: 09/16/20 07:30 Dose: 10 mg Documented by: [id number] Admin: 09/15/20 07:32 Dose: 10 mg Documented by: [id number] Cyanocobalamin (Cyanocobalamin 500 Mcg Tablet (Vitamin B-12)) 500 mcg PO DAILY [facility] Stop: 10/15/20 08:59 Last Admin: 09/16/20 07:30 Dose: 500 mcg Documented by: [id number] Admin: 09/15/20 07:33 Dose: 500 mcg Documented by: [id number] Donepezil HCl (Donepezil Hcl 10 Mg Tab) 10 mg PO DAILY [facility] Stop: 10/15/20 08:59 Last Admin: 09/16/20 07:31 Dose: 10 mg Documented by: [id number] Admin: 09/15/20 07:33 Dose: 10 mg Documented by: [id number] Folic Acid (Folic Acid 1 Mg Tab) 1 mg PO DAILY [facility] Stop: 10/15/20 08:59 Last Admin: 09/16/20 07:31 Dose: 1 mg Documented by: [id number] Admin: 09/15/20 07:34 Dose: 1 mg Documented by: [id number] Dextrose (D5w) 1,000 mls @ 100 mls/hr IV .Q10H [facility] Stop: 10/14/20 16:59 Last Admin: 09/16/20 10:33 Dose: 100 mls/hr Documented by: [id number] Infusion: 09/16/20 10:33 Dose: 100 mls/hr Documented by: [id number] Admin: 09/16/20 02:12 Dose: 100 mls/hr Documented by: [id number] Infusion: 09/16/20 02:12 Dose: 100 mls/hr Documented by: [id number] Admin: 09/15/20 16:14 Dose: 100 mls/hr Documented by: [id number] Infusion: 09/15/20 16:14 Dose: 100 mls/hr Documented by: [id number] Admin: 09/15/20 06:35 Dose: 100 mls/hr Documented by: [id number] Infusion: 09/15/20 06:35 Dose: 100 mls/hr Documented by: [id number] Admin: 09/14/20 21:04 Dose: 100 mls/hr Documented by: [id number] Infusion: 09/14/20 21:04 Dose: 100 mls/hr Documented by: [id number] Admin: 09/14/20 19:15 Dose: 100 mls/hr Documented by: [id number] Lacosamide (Lacosamide 50 Mg Tablet) 200 mg PO BID [facility] Stop: 10/14/20 20:59 Last Admin: 09/16/20 08:12 Dose: 200 mg Documented by: [id number] Admin: 09/15/20 20:27 Dose: 200 mg Documented by: [id number] Admin: 09/15/20 10:24 Dose: 200 mg Documented by: [id number] Admin: 09/15/20 00:25 Dose: Not Given Documented by: [id number] Lactulose (Lactulose Syrup 20 Gm/30 Ml Udc) 20 gm PO DAILY [facility] Stop: 10/15/20 08:59 Last Admin: 09/16/20 07:32 Dose: 20 gm Documented by: [id number] Admin: 09/15/20 07:34 Dose: 20 gm Documented by: [id number] Levetiracetam (Levetiracetam 500 Mg Tab) 1,000 mg PO BID [facility] Stop: 10/14/20 20:59 Last Admin: 09/16/20 07:31 Dose: 1,000 mg Documented by: [id number] Admin: 09/15/20 20:16 Dose: 1,000 mg Documented by: [id number] Admin: 09/15/20 07:32 Dose: 1,000 mg Documented by: [id number] Admin: 09/15/20 00:43 Dose: Not Given Documented by: [id number] Levothyroxine Sodium (Levothyroxine Sodium 75 Mcg Tablet) 75 mcg PO DAILYBB [facility] Stop: 10/15/20 06:29 Last Admin: 09/16/20 06:05 Dose: 75 mcg Documented by: [id number] Admin: 09/15/20 05:38 Dose: Not Given Documented by: [id number] Lidocaine (Lidocaine 5% 1 Patch) 2 patch TD QAM [facility] Stop: 10/15/20 08:59 Last Admin: 09/16/20 07:32 Dose: 2 patch Documented by: [id number] Admin: 09/15/20 07:30 Dose: 2 patch Documented by: [id number] Mirtazapine (Mirtazapine Tab 15 Mg Tab) 15 mg PO HS [facility] Stop: 10/14/20 20:59 Last Admin: 09/15/20 20:18 Dose: 15 mg Documented by: [id number] Admin: 09/15/20 00:24 Dose: Not Given Documented by: [id number] Miscellaneous (Zonisamide: Order Awaiting Action) 1 ea N/A QS [facility] Stop: 10/15/20 07:59 Last Admin: 09/16/20 15:14 Dose: Not Given Documented by: [id number] Admin: 09/16/20 07:32 Dose: Not Given Documented by: [id number] Admin: 09/16/20 00:54 Dose: Not Given Documented by: [id number] Admin: 09/15/20 15:24 Dose: Not Given Documented by: [id number] Admin: 09/15/20 07:35 Dose: Not Given Documented by: [id number] Miscellaneous (Remove Lidoderm Patch) 1 ea N/A DAILY@2100 [facility] Stop: 10/14/20 20:59 Last Admin: 09/15/20 20:19 Dose: 1 ea Documented by: [id number] Admin: 09/15/20 00:44 Dose: 1 ea Documented by: [id number] Polyethylene Glycol (Polyethylene (Miralax) 17 Gm Pack) 17 gm PO DAILY [facility] Stop: 10/15/20 08:59 Last Admin: 09/16/20 07:32 Dose: 17 gm Documented by: [id number] Admin: 09/15/20 07:31 Dose: 17 gm Documented by: [id number] Simvastatin (Simvastatin 40 Mg Tab) 40 mg PO QPM [facility] Stop: 10/14/20 20:59 Last Admin: 09/15/20 20:30 Dose: 40 mg Documented by: [id number] Admin: 09/15/20 00:45 Dose: Not Given Documented by: [id number] Discontinued Medications Cefepime HCl (Cefepime 2,000 Mg/20 Ml Vial) Confirm Administered Dose 2,000 mg .ROUTE .STK-MED ONE Stop: 09/14/20 16:24 Last Admin: 09/14/20 16:34 Dose: Not Given Documented by: [id number] Sodium Chloride (Nss 1000ml) 1,000 mls @ 999 mls/hr IV .Q1H1M [facility] Stop: 09/14/20 14:30 Last Infusion: 09/14/20 15:44 Dose: 0 mls/hr Documented by: [id number] Admin: 09/14/20 13:32 Dose: 999 mls/hr Documented by: [id number] Vancomycin HCl 1,000 mg/ (Sodium Chloride) 520 mls @ 200 mls/hr IV NOW ONE Stop: 09/14/20 16:14 Last Infusion: 09/14/20 18:24 Dose: 0 mls/hr Documented by: [id number] Admin: 09/14/20 15:00 Dose: 200 mls/hr Documented by: [id number] Cefepime HCl (Maxipime) 2,000 mg in 20 mls @ 5 mls/min IV NOW STA Stop: 09/14/20 13:42 Last Admin: 09/14/20 16:34 Dose: 5 mls/min Documented by: [id number] Lorazepam (Ativan) 0.5 mg in 1 mls @ 1 mls/min IV NOW STA Stop: 09/14/20 14:23 Last Admin: 09/14/20 15:00 Dose: 1 mls/min Documented by: [id number] Lorazepam (Ativan) 0.5 mg in 1 mls @ 1 mls/min IV NOW STA Stop: 09/14/20 15:12 Last Admin: 09/14/20 15:20 Dose: 1 mls/min Documented by: [id number] Sodium Chloride (Nss 1000ml) 1,000 mls @ 999 mls/hr IV .Q1H1M ONE Stop: 09/14/20 18:04 Last Infusion: 09/14/20 18:24 Dose: 0 mls/hr Documented by: [id number] Admin: 09/14/20 17:22 Dose: 999 mls/hr Documented by: [id number] Critical Care Time Critical Care Time: Yes Total Critical Care Time: 42 Critical care of 42 min performed to assess and manage high likelihood of life- threatening sepsis, involving labs and imaging performed with assessment to evaluate sepsis diagnosis with frequent reassessment. This time includes bedside time, treatment discussions with patient/family/consultants, documentation time and excludes procedure time. Medical Decision Making Differential Diagnosis Differential diagnoses includes but is not limited to toxic, metabolic, infectious, traumatic, cardiac, neurologic, hematologic, psychiatric and inflammatory etiologies. Medical Records Attestation: I reviewed the patient's medical records. Home Medications Current Medication List: was personally reviewed by me Laboratory Data Attestation: I reviewed the patient's lab results. Result diagrams: 09/16/20 05:21 09/15/20 05:56 Lab Results 09/14/20 09/14/20 09/14/20 Range/Units 13:07 13:07 13:07 WBC 11.50 H (4.8-10.8) K/uL RBC 4.26 (4.2-5.4) M/uL Hgb 14.3 (12.0-16.0) g/dL Hct 42.1 (37-47) % MCV 98.8 (80-100) fL MCH 33.6 (25-34) pg MCHC 34.0 (32-36) g/dL RDW Std Deviation 56.1 H (36.4-46.3) fL RDW Coeff of Skip 15.9 H (11.5-14.5) % Plt Count 168 (130-400) K/uL MPV 12.2 H (7.4-10.4) fL Immature Gran % (Auto) 1.0 % Neut % (Auto) 65.8 % Lymph % (Auto) 22.6 % [place] % (Auto) 10.3 % Eos % (Auto) 0.0 % Baso % (Auto) 0.3 % Neut # (Auto) 7.57 H (1.4-6.5) K/uL Lymph # (Auto) 2.60 (1.2-3.4) K/uL [place] # (Auto) 1.18 H (0.11-0.59) K/uL Eos # (Auto) 0.00 (0-0.5) K/uL Baso # (Auto) 0.03 (0-0.2) K/uL Immature Gran # (Auto) 0.12 H (0.00-0.02) K/uL Absolute Nucleated RBC 0.07 H (0-0) K/uL Nucleated RBC % (auto) 0.6 % PT 11.4 (9.0-12.0) Seconds INR 1.1 (0.9-1.1) APTT 23.7 (21.0-31.0) Seconds PTT Ratio 0.9 Sodium 152 H (136-145) mmol/L Potassium 3.9 (3.5-5.1) mmol/L Chloride 119 H (98-107) mmol/L Carbon Dioxide 24 (21-32) mmol/L Anion Gap 9.0 (3-11) BUN 80 H (7-18) mg/dl Creatinine 1.90 H (0.6-1.2) mg/dl Est Cr Clr Drug Dosing 19.5 ml/min Est GFR ( Amer) 29.8 Est GFR (Non-Af Amer) 25.7 BUN/Creatinine Ratio 42.2 H (10-20) Glucose 143 H (70-99) mg/dl Lactate (0.4-2.0) mmol/L Calcium 11.2 H (8.5-10.1) mg/dl Magnesium 2.6 H (1.8-2.4) mg/dl Iron (35-150) mcg/dl Transferrin (200-360) mg/dl Transferrin % Sat (15-50) % Total Bilirubin 0.6 (0.2-1) mg/dl AST 36 (15-37) U/L ALT 56 (12-78) U/L Alkaline Phosphatase 128 H (45-117) U/L Troponin I 0.089 H* (0-0.045) ng/ml Total Protein 7.4 (6.4-8.2) gm/dl Albumin 3.9 (3.4-5.0) gm/dl Globulin 3.5 (2.5-4.0) gm/dl Albumin/Globulin Ratio 1.1 (0.9-2) Procalcitonin (0-0.5) ng/ml TSH 1.960 (0.300-4.500) uIu/ml Urine Color Urine Appearance (Clear) Urine pH (4.5-7.5) Ur Specific [place] (1.000-1.030) Urine Protein (Negative) Urine Glucose (UA) (Negative) Urine Ketones (Negative) Urine Blood (Negative) Urine Nitrite (Negative) Urine Bilirubin (Negative) Urine Urobilinogen (Negative) Ur Leukocyte Esterase (Negative) Urine WBC (Auto) (0-5) /hpf Urine RBC (Auto) (0-4) /hpf U Hyaline Cast (Auto) (0-5) /lpf U Epithel Cells (Auto) (0-5) /lpf Urine Bacteria (Auto) (Negative) 09/14/20 09/14/20 09/14/20 Range/Units 13:07 13:36 13:36 WBC (4.8-10.8) K/uL RBC (4.2-5.4) M/uL Hgb (12.0-16.0) g/dL Hct (37-47) % MCV (80-100) fL MCH (25-34) pg MCHC (32-36) g/dL RDW Std Deviation (36.4-46.3) fL RDW Coeff of Skip (11.5-14.5) % Plt Count (130-400) K/uL MPV (7.4-10.4) fL Immature Gran % (Auto) % Neut % (Auto) % Lymph % (Auto) % [place] % (Auto) % Eos % (Auto) % Baso % (Auto) % Neut # (Auto) (1.4-6.5) K/uL Lymph # (Auto) (1.2-3.4) K/uL [place] # (Auto) (0.11-0.59) K/uL Eos # (Auto) (0-0.5) K/uL Baso # (Auto) (0-0.2) K/uL Immature Gran # (Auto) (0.00-0.02) K/uL Absolute Nucleated RBC (0-0) K/uL Nucleated RBC % (auto) % PT (9.0-12.0) Seconds INR (0.9-1.1) APTT (21.0-31.0) Seconds PTT Ratio Sodium (136-145) mmol/L Potassium (3.5-5.1) mmol/L Chloride (98-107) mmol/L Carbon Dioxide (21-32) mmol/L Anion Gap (3-11) BUN (7-18) mg/dl Creatinine (0.6-1.2) mg/dl Est Cr Clr Drug Dosing ml/min Est GFR ( Amer) Est GFR (Non-Af Amer) BUN/Creatinine Ratio (10-20) Glucose (70-99) mg/dl Lactate 2.5 H* (0.4-2.0) mmol/L Calcium (8.5-10.1) mg/dl Magnesium (1.8-2.4) mg/dl Iron 180 H (35-150) mcg/dl Transferrin 127 L (200-360) mg/dl Transferrin % Sat 101 H (15-50) % Total Bilirubin (0.2-1) mg/dl AST (15-37) U/L ALT (12-78) U/L Alkaline Phosphatase (45-117) U/L Troponin I (0-0.045) ng/ml Total Protein (6.4-8.2) gm/dl Albumin (3.4-5.0) gm/dl Globulin (2.5-4.0) gm/dl Albumin/Globulin Ratio (0.9-2) Procalcitonin 0.05 (0-0.5) ng/ml TSH (0.300-4.500) uIu/ml Urine Color Urine Appearance (Clear) Urine pH (4.5-7.5) Ur Specific [place] (1.000-1.030) Urine Protein (Negative) Urine Glucose (UA) (Negative) Urine Ketones (Negative) Urine Blood (Negative) Urine Nitrite (Negative) Urine Bilirubin (Negative) Urine Urobilinogen (Negative) Ur Leukocyte Esterase (Negative) Urine WBC (Auto) (0-5) /hpf Urine RBC (Auto) (0-4) /hpf U Hyaline Cast (Auto) (0-5) /lpf U Epithel Cells (Auto) (0-5) /lpf Urine Bacteria (Auto) (Negative) 09/14/20 09/14/20 Range/Units 16:26 16:35 WBC (4.8-10.8) K/uL RBC (4.2-5.4) M/uL Hgb (12.0-16.0) g/dL Hct (37-47) % MCV (80-100) fL MCH (25-34) pg MCHC (32-36) g/dL RDW Std Deviation (36.4-46.3) fL RDW Coeff of Skip (11.5-14.5) % Plt Count (130-400) K/uL MPV (7.4-10.4) fL Immature Gran % (Auto) % Neut % (Auto) % Lymph % (Auto) % [place] % (Auto) % Eos % (Auto) % Baso % (Auto) % Neut # (Auto) (1.4-6.5) K/uL Lymph # (Auto) (1.2-3.4) K/uL [place] # (Auto) (0.11-0.59) K/uL Eos # (Auto) (0-0.5) K/uL Baso # (Auto) (0-0.2) K/uL Immature Gran # (Auto) (0.00-0.02) K/uL Absolute Nucleated RBC (0-0) K/uL Nucleated RBC % (auto) % PT (9.0-12.0) Seconds INR (0.9-1.1) APTT (21.0-31.0) Seconds PTT Ratio Sodium (136-145) mmol/L Potassium (3.5-5.1) mmol/L Chloride (98-107) mmol/L Carbon Dioxide (21-32) mmol/L Anion Gap (3-11) BUN (7-18) mg/dl Creatinine (0.6-1.2) mg/dl Est Cr Clr Drug Dosing ml/min Est GFR ( Amer) Est GFR (Non-Af Amer) BUN/Creatinine Ratio (10-20) Glucose (70-99) mg/dl Lactate 1.6 (0.4-2.0) mmol/L Calcium (8.5-10.1) mg/dl Magnesium (1.8-2.4) mg/dl Iron (35-150) mcg/dl Transferrin (200-360) mg/dl Transferrin % Sat (15-50) % Total Bilirubin (0.2-1) mg/dl AST (15-37) U/L ALT (12-78) U/L Alkaline Phosphatase (45-117) U/L Troponin I (0-0.045) ng/ml Total Protein (6.4-8.2) gm/dl Albumin (3.4-5.0) gm/dl Globulin (2.5-4.0) gm/dl Albumin/Globulin Ratio (0.9-2) Procalcitonin (0-0.5) ng/ml TSH (0.300-4.500) uIu/ml Urine Color Dark Yellow Urine Appearance Cloudy A (Clear) Urine pH 5.0 (4.5-7.5) Ur Specific [place] 1.024 (1.000-1.030) Urine Protein Trace H (Negative) Urine Glucose (UA) Negative (Negative) Urine Ketones Trace H (Negative) Urine Blood Trace H (Negative) Urine Nitrite Positive A (Negative) Urine Bilirubin 1+ H (Negative) Urine Urobilinogen Negative (Negative) Ur Leukocyte Esterase 2+ H (Negative) Urine WBC (Auto) >30 H (0-5) /hpf Urine RBC (Auto) 0-4 (0-4) /hpf U Hyaline Cast (Auto) 10-30 H (0-5) /lpf U Epithel Cells (Auto) >30 H (0-5) /lpf Urine Bacteria (Auto) 2+ H (Negative) Imaging Data Radiologist's Impression: CT head/brain wo con CLINICAL HISTORY: 75 years-old Female with ams. Acutely altered mental status TECHNIQUE: Multiple axial CT images of the head were obtained without contrast. A dose lowering technique was utilized adhering to the principles of ALARA. COMPARISON: CT 03/29/2020. FINDINGS: No acute intracranial hemorrhage, midline shift, intracranial mass, hydroce phalus, territorial ischemia or abnormal extra-axial collection. Patchy white matter hypodensities suggest chronic microvascular ischemic disease. Cerebral vascular calcifications. The calvarium is intact. Metopic suture. Trace mastoid effusions. Paranasal sinuses are clear. Unremarkable soft tissues. Prior bilateral lens replacement. IMPRESSION: No acute intracranial abnormality. ACT 112: Negative or not required by law. The above report was generated using voice recognition software. It may contain grammatical, syntax or spelling errors. Electronically signed by: Vadim Mckeon M.D. 09/14/2020 3:58 PM XR chest 1V portable HISTORY: 75 years-old Female SEPSIS acute sepsis with confusion COMPARISON: CTA chest 03/31/2020 TECHNIQUE: Upright AP view of the chest FINDINGS: Cardiomediastinal and hilar silhouettes are within normal limits. Right IJ Psksye-g-[id number] catheter distal tip terminates within the region of the inferior SVC. Battery pack projects of the left chest with leads projecting over the left neck. There is no pneumothorax, pleural effusion, airspace consolidation or overt pulmonary edema. Degenerative changes of the shoulders and spine. IMPRESSION: No acute process. ACT 112: Negative or not required by law. The above report was generated using voice recognition software. It may contain grammatical, syntax or spelling errors. Electronically signed by: Vadim Mckeon M.D. 09/14/2020 2:11 PM A[address]OMEN AND PELVIS CT WITHOUT CONTRAST CT DOSE: 1214.54 mGy.cm HISTORY: Urinary tract infection with acute kidney injury. isidro, uti TECHNIQUE: Multiaxial CT images of the abdomen and pelvis were performed without contrast. A dose lowering technique was utilized adhering to the principles of ALARA. COMPARISON STUDY: CTA of the chest 03/31/2020, lumbar spine radiographs 03/11/2019. FINDINGS: Limited exam secondary to upper extremity positioning. Linear hyperdensities suggestive of calcifications versus aspirated barium of the lung bases. Mild bibasilar atelectasis with mild right hemidiaphragmatic elevation. No pneumatosis or pneumoperitoneum. Coronary artery calcifications. The imaged inferior cardiac chambers are unremarkable. The spleen, moderately atrophic pancreas and adrenal glands are unremarkable. The gallbladder appears to be surgically absent. Unenhanced liver appears unremarkable. Kidneys are unremarkable. No renal or ureteral calculi or obstructive uropathy. Mild urinary bladder wall thickening with partial distention. Unremarkable uterus and adnexa. Phleboliths of the pelvis. Calcified plaque of the abdominal aorta without aneurysm. There is no adenopathy. No bowel obstruction or bowel wall thickening. Contrast is noted within the large bowel. Colonic diverticulosis. The appendix is not diagnostically visualized and may be surgically absent. There is no ascites or mesenteric inflammation. Unremarkable soft tissues. Degenerative changes of the spine, pelvis and hips. 50% superior endplate compression deformity at L1 with 3 mm retropulsion is unchanged. IMPRESSION: 1. No acute intra-abdominal or intrapelvic abnormality. 2. No renal or ureteral calculi or obstructive uropathy. 3. No bowel obstruction or bowel wall thickening. 4. Colonic diverticulosis. 5. Additional findings as above. ACT 112: Negative or not required by law. The above report was generated using voice recognition software. It may contain grammatical, syntax or spelling errors. Electronically signed by: Vadim Mckeon M.D. 09/14/2020 4:04 PM ECG Data Attestation: I personally reviewed and interpreted this ECG as follows: Indication: + altered mental status Rate (beats per minute): 104 Rhythm: + sinus tachycardia ECG Intervals/blocks: + Normal QRS and + Normal QT ECG [place]: + Normal ECG ST segments: + Nonspecific ST abnormalities Additional Comments: low voltage MDM Narrative Elderly female sent from [place] due to concern for ams despite hx of dementia and abnormal labs with UTI. UTI just diagnosed but they didn't start tx yet and sent her to the ER due to other additional concerns. Pt unable to give any hx, awake, nonverbal, not able to follow commands. Pt initially hypotensive but did respond to IVF. Pt did receive >30 ml/kg IVF for resuscitation. Pt started on antibiotics after reviewing info from [place], given unclear if UTI isolated and pt from a facility started with broad coverage. Labs and cultures sent. Given UTI and labs showing ISIDRO in AMS, pt sent for CT a/p in addition to CT head. Lactate elevated but procal negative. Case discussed with hospitalist for additional treatment and monitoring due to evolving sepsis, isidro, and encephalopathy likely from infection. An order was placed for continuous cardiac monitoring. The monitor shows a rate of 92_ with normal sinus_ rhythm. Impression & Plan AMS (altered mental status), Acute UTI (urinary tract infection), ISIDRO (acute kidney injury), Sepsis, Acute hypernatremia, Dementia, Thrombocytopenia Discharge Plan Visit Data Chief Complaint: Confusion ED Provider: Huyen Berman Discharge Problem: AMS (altered mental status), Acute UTI (urinary tract infection), ISIDRO (acute kidney injury), Sepsis, Acute hypernatremia, Dementia, Thrombocytopenia Patient Disposition: Admitted As Inpatient Discharge Instructions Interventions: ED Discharge Assessment Last Done: 09/14/20 20:27 Discharge Problem: AMS (altered mental status) Qualifiers: Altered mental status type: unspecified Qualified Code(s): R41.82 - Altered mental status, unspecified Sepsis Qualifiers: Sepsis type: sepsis due to unspecified organism Sepsis acute organ dysfunction status: with acute organ dysfunction Severe sepsis acute organ dysfunction type: acute renal failure Acute renal failure type: unspecified Severe sepsis shock status: without septic shock Qualified Code(s): A41.9 - Sepsis, unspecified organism Dementia Qualifiers: Dementia type: unspecified type Dementia behavioral disturbance: with behavioral disturbance Qualified Code(s): F03.91 - Unspecified dementia with behavioral disturbance
[2020-09-14] MEDS ORDERED: CEFEPIME 2,000 MG/20 ML VIAL IV STA (13:39)
[2020-09-14] MEDS ORDERED: VANCOMYCIN CONSULT ACTIVE PRN ×2 (13:39)
[2020-09-14] MEDS ORDERED: VANCOMYCIN HCL 1,000 MG in SODIUM CHLORIDE 0.9% 500 ML IV ONE (13:39)
[2020-09-14 13:40] LABS: INR 1.1 (0.9-1.1); Partial Thromboplastin Ratio 0.9; Partial Thromboplastin Time 23.7 Seconds (21.0-31.0); Prothrombin Time 11.4 Seconds (9.0-12.0)
[2020-09-14 13:41] LABS: Albumin Level 3.9 gm/dl (3.4-5.0); BUN Creatinine Ratio 42.2 (10-20); Calcium 11.2 mg/dl (8.5-10.1); Creatinine Clr Calc Pharmacy 19.5 ml/min; Est GFR (African American) 29.8; Est GFR (Non-African American) 25.7; Magnesium 2.6 mg/dl (1.8-2.4); Potassium 3.9 mmol/L (3.5-5.1)
[2020-09-14 14:06] LABS: Albumin Globulin Ratio 1.1 (0.9-2); Bilirubin,Total 0.6 mg/dl (0.2-1); Globulin 3.5 gm/dl (2.5-4.0); Thyroid Stimulating Hormone 1.96 uIu/ml (0.300-4.500); Total Protein 7.4 gm/dl (6.4-8.2); Troponin I 0.089 ng/ml (0-0.045)
--- NOTE | 2020-09-14 14:12 | XRay Report ---
XR chest 1V portable HISTORY: 75 years-old Female SEPSIS acute sepsis with confusion COMPARISON: CTA chest 03/31/2020 TECHNIQUE: Upright AP view of the chest FINDINGS: Cardiomediastinal and hilar silhouettes are within normal limits. Right IJ Xyxoyc-a-Bluh catheter dis shirin tip terminates within the region of the inferior SVC. Battery pack projects of the left chest wit h leads projecting over the left neck. There is no pneumothorax, pleural effusion, airspace consolida tion or overt pulmonary edema. Degenerative changes of the shoulders and spine. IMPRESSION: No acute process. ACT 112: Negative or not required by law. The above report was generated using voice recognition software. It may contain grammatical, syntax o r spelling errors. Electronically signed by: Vadim Mckeon M.D. 09/14/2020 2:11 PM
[2020-09-14] MEDS ORDERED: LORazepam 0.5 MG/1 ML VIAL IV STA ×2 (14:22→15:11)
--- NOTE | 2020-09-14 15:59 | CT Scan Report ---
CT head/brain wo con CLINICAL HISTORY: 75 years-old Female with ams. Acutely altered mental status TECHNIQUE: Multiple axial CT images of the head were obtained without contrast. A dose lowering tech nique was utilized adhering to the principles of ALARA. COMPARISON: CT 03/29/2020. FINDINGS: No acute intracranial hemorrhage, midline shift, intracranial mass, hydrocephalus, territorial ischem ia or abnormal extra-axial collection. Patchy white matter hypodensities suggest chronic microvascula r ischemic disease. Cerebral vascular calcifications. The calvarium is intact. Metopic suture. Trace mastoid effusions. Paranasal sinuses are clear. Unrema rkable soft tissues. Prior bilateral lens replacement. IMPRESSION: No acute intracranial abnormality. ACT 112: Negative or not required by law. The above report was generated using voice recognition software. It may contain grammatical, syntax o r spelling errors. Electronically signed by: Vadim Mckeon M.D. 09/14/2020 3:58 PM
--- NOTE | 2020-09-14 16:05 | CT Scan Report ---
ABDOMEN AND PELVIS CT WITHOUT CONTRAST CT DOSE: 1214.54 mGy.cm HISTORY: Urinary tract infection with acute kidney injury. j[place], [place] TECHNIQUE: Multiaxial CT images of the abdomen and pelvis were performed without contrast. A dose lo wering technique was utilized adhering to the principles of ALARA. COMPARISON STUDY: CTA of the chest 03/31/2020, lumbar spine radiographs 03/11/2019. FINDINGS: Limited exam secondary to upper extremity positioning. Linear hyperdensities suggestive of calcifications versus aspirated barium of the lung bases. Mild bibasilar atelectasis with mild right hemidiaphragmatic elevation. No pneumatosis or pneumoperitoneum. Coronary artery calcifications. The imaged inferior cardiac chambers are unremarkable. The spleen, moderately atrophic pancreas and adren al glands are unremarkable. The gallbladder appears to be surgically absent. Unenhanced liver appears unremarkable. Kidneys are unremarkable. No renal or ureteral calculi or obstructive uropathy. Mild urinary bladder wall thickening with partial distention. Unremarkable uterus and adnexa. Phleboliths of the pelvis. C alcified plaque of the abdominal aorta without aneurysm. There is no adenopathy. No bowel obstruction or bowel wall thickening. Contrast is noted within the large bowel. Colonic dive rticulosis. The appendix is not diagnostically visualized and may be surgically absent. There is no a scites or mesenteric inflammation. Unremarkable soft tissues. Degenerative changes of the spine, pelv is and hips. 50% superior endplate compression deformity at L1 with 3 mm retropulsion is unchanged. IMPRESSION: 1. No acute intra-abdominal or intrapelvic abnormality. 2. No renal or ureteral calculi or obstructive uropathy. 3. No bowel obstruction or bowel wall thickening. 4. Colonic diverticulosis. 5. Additional findings as above. ACT 112: Negative or not required by law. The above report was generated using voice recognition software. It may contain grammatical, syntax o r spelling errors. Electronically signed by: Vadim Mckeon M.D. 09/14/2020 4:04 PM
[2020-09-14] MEDS ORDERED: CEFEPIME 2,000 MG/20 ML VIAL ONE (16:23)
--- NOTE | 2020-09-14 16:58 | History & Physical Report ---
Date of Service September 14, 2020 Assessment & Plan (1) Sepsis: Lactate 2.5, repeat 1.9 IV fluid resuscitation with NSS 2L bolus Continue IV fluids with D5W due to hypernatremia (2) Acute UTI (urinary tract infection): Discontinue vancomycin given gram-negative bacilli on previous urine culture Continue cefepime renally dosed per pharmacy (3) AMS (altered mental status): Appears to have had a decline since since June possibly due to Covid delirium versus morphine use (unclear reason for morphine given) versus multiple recent changes to medications, including citalopram/mirtazapine versus seizures versus progressive dementia (appears very fast decline per daughter for this). More acute decline explained by hypernatremia and current UTI N.p.o. except sips, chips and meds pending more awake status and possible need for speech evaluation if failing dysphagia screen (4) ISIDRO (acute kidney injury): Secondary to Lasix use with reduced oral intake. IV fluids as above Monitor with BMP in a.m. (5) Acute hypernatremia: Secondary to free water deficit due to poor oral intake D5W as above (6) Peripheral neuropathy: (7) Hypothyroidism: TSH WNL Continue levothyroxine 75 mcg p.o. daily (8) Hereditary hemochromatosis: Ferritin likely to be falsely elevated in infection. Will get transferrin saturation levels. (9) Seizure disorder: Epilepsy/PNES Per last neurology note. Continue Zonegran 400 mg nightly, Vimpat 200 mg twice daily, Keppra 1000 mg twice daily. (10) Severe protein-calorie malnutrition: N.p.o. except meds pending speech evaluation Admission and Anticipated Discharge Date Admission Date: September 14, 2020 History of Present Illness Chief Complaint: Altered mental state Primary Care Provider: [facility] Faye Aragon is a 75 year old female from [facility] who presents to the ER with altered mental status and abnormal labs. Unable to get any history from patient due to altered mental state. Outpatient labs were concerning for hyponatremia with a sodium of 152. This is from a baseline of 132 on August 16. She is reportedly not been eating and drinking as much and is continued on the same dose of Lasix throughout this time. This was only discontinued but she had her last dose yesterday. She was tested for a urine tract infection with urine culture growing gram-negative rods. Plan had been to start on ceftriaxone IM however due to abnormal labs she has not received any doses and was transferred to the ER. Discussed with her daughter over the phone. She reports being very unhappy with care [facility]. She notes her mother had COVID-19 at the beginning of June. She reports her mother did "very well" with this but after being moved to the back to the [facility] at some point in June she started to have a large progressive deterioration. She notes her mother was started on something like morphine which she was given regularly until she complained en ough a week ago that it was discontinued. I discussed with the provider who sent the patient over from [facility] Dr. Reeves. He confirmed that there is a palliative protocol for morphine for COVID-19 patient's on palliative care however was unable to give me any details regarding this patient's case as he is any just come back to working at [facility]. Given that she is for full resuscitation I am unclear why or whether she was given morphine or any opiates. Her daughter also notes she has hereditary hemochromatosis. Her mother was following a steel pourer helper in [place] but has not seen one since moving to [place] in [facility]. She reports concern with this and does not know whether [facility] was checking any numbers. Discussed multiple lab studies with her daughter including elevated calcium, sodium, creatinine. I discussed the patient's diagnosis of depression, her daughter confirms this but notes " who isn't depressed", and dementia which the daughter reports is due to multiple seizures throughout her lifetime of epilepsy and her baseline is walking around with a walker and having full meaningful conversations - she reports up until June she was probably the most cognitively aware patient at [facility]. In the ER the patient is alert but very confused. She is nonverbal to myself with rolling her eyes and my questions. This does not appear to be seizure-like activity as stops when I stop questioning her. Imaging of CT head, CT abdomen pelvis and chest x-ray were unremarkable. Allergies Allergy/AdvReac Type Severity Reaction Status Date / Time hydrocortisone Allergy Intermediate DELIRIUM Verified 09/04/20 08:34 phenobarbital Allergy Intermediate RASH Verified 09/14/20 15:34 acetaminophen Allergy Unknown GI SYMPTOMS Verified 09/14/20 15:34 lamotrigine Allergy Unknown RASH Verified 09/14/20 15:34 hydrocodone Allergy Unknown Verified 09/14/20 15:34 Home Medications Medication Instructions Recorded Confirmed Type acetaminophen [Tylenol] 650 mg PO QID PRN 09/14/20 09/14/20 History allopurinol [Zyloprim] 300 mg PO DAILY 09/14/20 09/14/20 History bisacodyl [Dulcolax (bisacodyl)] 10 mg [place] UD PRN 09/14/20 09/14/20 History calcium carbonate 500 mg PO BID 09/14/20 09/14/20 History carboxymethylcellulose sodium 2 drp OPHTHALMIC (EYE) QID 09/14/20 09/14/20 History [TheraTears] ceftriaxone 1 g IM DAILY 09/14/20 09/14/20 History cholecalciferol (vitamin D3) 50,000 unit PO .Q FRI 09/14/20 09/14/20 History citalopram 10 mg PO DAILY 09/14/20 09/14/20 History cyanocobalamin (vitamin B-12) 500 mcg PO DAILY 09/14/20 09/14/20 History [Vitamin B-12] donepezil 10 mg PO DAILY 09/14/20 09/14/20 History folic acid 1 mg PO DAILY 09/14/20 09/14/20 History lacosamide [Vimpat] 200 mg PO BID 09/14/20 09/14/20 History lactulose 30 ml PO DAILY 09/14/20 09/14/20 History levetiracetam [Keppra] 1,000 mg PO BID 09/14/20 09/14/20 History levothyroxine 75 mcg PO DAILY 09/14/20 09/14/20 History lidocaine [Lidocaine Pain Relief] 2 patch TOPICAL AMPM 09/14/20 09/14/20 History lorazepam 0.5 mg IM Q6 PRN 09/14/20 09/14/20 History mirtazapine 15 mg PO HS 09/14/20 09/14/20 History polyethylene glycol 3350 [Miralax] 17 g PO DAILY 09/14/20 09/14/20 History promethazine 25 mg PO Q6H PRN 09/14/20 09/14/20 History simvastatin 40 mg PO QPM 09/14/20 09/14/20 History soap [Baby Shampoo] 1 ea TOPICAL UD PRN 09/14/20 09/14/20 History zonisamide 400 mg PO DAILY 09/14/20 09/14/20 History Past Med/Surg History Medical History Chronic cerebral ischemia Dementia Depression with anxiety Dizziness Generalized epilepsy Generalized osteoarthritis of multiple sites Gout Hereditary hemochromatosis Hypercholesteremia Hypothyroidism Peripheral neuropathy Family History Family/Other No pertinent past medical history Social History Smoking Status: Unknown if ever smoked Preferred Language: [place] Communication Ability: Impaired Social Media Editor Required: No Beliefs That Will Affect Care: None Current Living Situation: Alf Assistive Devices: None Review of Systems Review of Systems: Unobtainable due to cognitive status Physical Exam Constitutional: + frail appearing and + malnourished; + not well nourished and no acute distress Eyes: PERRL, conjunctivae normal, anicteric sclerae ENMT: Ears: no external ear abnormality Nose: no external nose abnormality Mouth: + dry oral mucous membranes Neck: trachea midline Thyroid: no thyromegaly Respiratory: normal respiratory effort, lungs clear to auscultation Cardiovascular: RRR, no murmur, no edema Gastrointestinal (Abdomen): normal bowel sounds, soft, nontender, no hepatosplenomegaly Skin: no rashes, warm and dry (No areas of cellulitis) Neurologic: awake and + confused; + does not move all extremities (Unable to participate in meaningful neurological exam occasional moving UE) Psychiatric: Orientation: alert; + not oriented x 3 Genitourinary: no CVA tenderness Results & Data Results & Data ([facility]) Vital Signs (Past 12 Hours) Vital Signs Temp Pulse Resp BP BP Pulse Ox 09/14/20 16:53 107 H 12 120/85 98 09/14/20 16:30 109 H 15 110/82 99 09/14/20 16:02 102 H 18 09/14/20 16:01 105 H 17 107/63 09/14/20 15:31 106/68 09/14/20 15:30 108 H 22 09/14/20 15:28 20 125/75 09/14/20 15:25 13 09/14/20 15:05 79 09/14/20 15:02 106/80 09/14/20 14:50 113 H 16 09/14/20 14:40 113 H 19 09/14/20 14:30 110 H 19 09/14/20 14:20 107 H 14 09/14/20 14:10 116 H 21 09/14/20 14:01 113 H 26 H 127/88 09/14/20 13:45 24 09/14/20 13:33 114 H 98 09/14/20 13:30 119 H 13 09/14/20 13:29 95/68 L 09/14/20 13:20 117 H 15 09/14/20 13:10 115 H 19 09/14/20 12:53 118 H 28 H 09/14/20 12:50 116 H 27 H 09/14/20 12:49 107 H 28 H 09/14/20 12:33 36.2 C L 110 H [address] head/brain wo con IMPRESSION: No acute intracranial abnormality. XR chest 1V portable IMPRESSION: No acute process. ABDOMEN AND PELVIS CT WITHOUT CONTRAST IMPRESSION: 1. No acute intra-abdominal or intrapelvic abnormality. 2. No renal or ureteral calculi or obstructive uropathy. 3. No bowel obstruction or bowel wall thickening. 4. Colonic diverticulosis. 5. Additional findings as above. Medications Administered ER medications given: Vancomycin 1 g IV NSS 1L bolus x2 Cefepime 2 g IV Lorazepam 0.5 mg IV x2 ECG Indication: altered mental status Rate (beats per minute): 104 Rhythm: sinus tachycardia Findings: + RBBB (Incomplete) Comparison ECG Date: from (March 31, 2020) Change: no significant change Code Status & VTE Plan Code Status Full VTE Prophylaxis Plan VTE Prophylaxis will be ordered: Yes PG Care Time/CCT Total # of Minutes Spent Total Time Spent with Patient: Total time spent is greater than 50% in coordination of care (as documented) at patient's floor/unit and/or counseling patient: Coding Level of Care Code 27469 Initial Inpt Care Lvl 3 Diagnoses Sepsis A41.9 Acute UTI (urinary tract infection) N39.0 AMS (altered mental status) R41.82 Altered mental status type: unspecified ISIDRO (acute kidney injury) N17.9 Acute hypernatremia E87.0 Peripheral neuropathy G62.9 Hypothyroidism E03.9 Hereditary hemochromatosis E83.110 Seizure disorder G40.909 Severe protein-calorie malnutrition E43 (1) AMS (altered mental status) Altered mental status type: unspecified Qualified Code(s): R41.82 - Altered mental status, unspecified
[2020-09-14 17:00] LABS: Appearance Urine Cloudy (Clear); Bacteria Urine Automated 2+ (Negative); Blood Urine Trace (Negative); Color Urine Dark Yellow; Epithelial Cell Urine Auto >30 /lpf (0-5); Glucose Urine UA Negative (Negative); Ketones Urine Trace (Negative); Leukocyte Esterase Urine 2+ (Negative); Nitrite Urine Positive (Negative); Protein Urine Trace (Negative); RBC Urine Automated 0-4 /hpf (0-4); Specific Gravity Urine 1.024 (1.000-1.030); Urobilinogen Urine Negative (Negative); WBC Urine Automated >30 /hpf (0-5)
[2020-09-14] MEDS ORDERED: SODIUM CHLORIDE 0.9% 1000ML 1,000 ML IV ONE (17:04)
--- NOTE | 2020-09-14 17:06 | Electrocardiogram Report ---
Test Reason : Blood Pressure : / mmHG Vent. Rate : 104 BPM Atrial Rate : 104 BPM P-R Int : 148 ms QRS Dur : 104 ms QT Int : 374 ms P-R-T Axes : 081 006 039 degrees QTc Int : 491 ms Poor data quality, interpretation may be adversely affected Sinus tachycardia Low voltage QRS Incomplete right bundle branch block Abnormal ECG When compared with ECG of 14-SEP-2020 13:44, (unconfirmed) No significant change was found Confirmed by Ronal Ashby ([id number]) on 09/14/2020 5:05:44 PM Referred By: [facility] Confirmed By:Ronal Ashby
[2020-09-14 17:22] LABS: Bilirubin Urine 1+ (Negative)
[2020-09-14 18:43] LABS: Iron 180 mcg/dl (35-150); Transferrin 127 mg/dl (200-360); Transferrin Percent Saturation 101 % (15-50)
[2020-09-14] MEDS: DEXTROSE 5% 1,000 ML IV SCH ×2 (19:15→21:04)
[2020-09-14] MEDS ORDERED: NON-FORMULARY MEDICATION (Acetaminophen [Tylenol] 325 mg Capsule) PO PRN (20:45)
[2020-09-14] MEDS ORDERED: NON-FORMULARY MEDICATION (Lidocaine [Lidocaine Pain Relief] 4 % Adhesive Patch,Medicated) TOP SCH (20:45)
[2020-09-14] MEDS ORDERED: POLYETHYLENE (MIRALAX) 17 GM PACK PO PRN (20:45)
[2020-09-14] MEDS ORDERED: [UNRECOGNIZED DRUG - OTHER] TOP PRN (20:45)
[2020-09-14] MEDS ORDERED: ONDANSETRON INJ 2 MG/ML 2 ML VIAL IV PRN (20:45)
[2020-09-14] MEDS ORDERED: PROMETHAZINE HCL 25 MG TAB PO PRN (20:45)
[2020-09-14] MEDS ORDERED: ACETAMINOPHEN 325 MG TAB PO PRN (20:45)
[2020-09-14] MEDS ORDERED: CEFEPIME CONSULT ACTIVE PRN (21:01)
[2020-09-15] MEDS: MIRTAZAPINE TAB 15 MG TAB PO SCH ×2 (00:24→20:18)
[2020-09-15] MEDS: LACOSAMIDE 50 MG TABLET PO SCH ×3 (00:25→20:27)
[2020-09-15] MEDS: ARTIFICIAL TEARS OP SCH ×6 (00:43→20:14)
[2020-09-15] MEDS: levETIRAcetam 500 MG TAB PO SCH ×3 (00:43→20:16)
[2020-09-15] MEDS: CALCIUM CARBONATE 1250MG TAB PO SCH ×3 (00:43→20:17)
[2020-09-15] MEDS: SIMVASTATIN 40 MG TAB PO SCH ×2 (00:45→20:30)
[2020-09-15] MEDS ORDERED: HEPARIN 100 UNIT/ML 5ML FLUSH FLUSH PRN (02:19)
[2020-09-15] MEDS: LEVOTHYROXINE SODIUM 75 MCG TABLET PO SCH (05:38)
[2020-09-15] MEDS: DEXTROSE 5% 1,000 ML IV SCH ×2 (06:35→16:14)
[2020-09-15 06:39] LABS: Hematocrit (blood only) 32.2 % (37-47); Hemoglobin 10.8 g/dL (12.0-16.0); Mean Corpuscular Hemoglobin 33.4 pg (25-34); Mean Corpuscular Hgb Conc 33.5 g/dL (32-36); Mean Corpuscular Volume 99.7 fL (80-100); Mean Platelet Volume 11.5 fL (7.4-10.4); Platelet Count 98 K/uL (130-400); RDW Coefficient of Variation 15.7 % (11.5-14.5); RDW Standard Deviation 56.3 fL (36.4-46.3); Red Blood Count 3.23 M/uL (4.2-5.4); White Blood Count 6.29 K/uL (4.8-10.8)
[2020-09-15 06:47] LABS: Basophils # (auto) 0.02 K/uL (0-0.2); Basophils % (auto) 0.3 %; Eosinophils # (auto) 0.03 K/uL (0-0.5); Eosinophils % (auto) 0.5 %; Immature Granulocytes # (auto) 0.06 K/uL (0.00-0.02); Lymphocytes % (auto) 20.7 %; Monocytes % (auto) 9.5 %; Neutrophils # (auto) 4.28 K/uL (1.4-6.5); Platelet Estimate Decreased (Normal)
[2020-09-15 06:53] LABS: BUN Creatinine Ratio 49.9 (10-20); Creatinine Clr Calc Pharmacy 32.6 ml/min; Est GFR (African American) 55.2; Est GFR (Non-African American) 47.7; Ferritin 480.8 ng/ml (8-388); Potassium 3.7 mmol/L (3.5-5.1)
[2020-09-15] MEDS: LIDOCAINE 5% 1 PATCH TD SCH (07:30)
[2020-09-15] MEDS: POLYETHYLENE (MIRALAX) 17 GM PACK PO SCH (07:31)
[2020-09-15] MEDS: CITALOPRAM 20 MG TAB PO SCH (07:32)
[2020-09-15] MEDS: DONEPEZIL HCL 10 MG TAB PO SCH (07:33)
[2020-09-15] MEDS: CYANOCOBALAMIN 500 MCG TABLET (VITAMIN B-12) PO SCH (07:33)
[2020-09-15] MEDS: allopurinoL 300 MG TAB PO SCH (07:34)
[2020-09-15] MEDS: LACTULOSE SYRUP 20 GM/30 ML UDC PO SCH (07:34)
[2020-09-15] MEDS: FOLIC ACID 1 MG TAB PO SCH (07:34)
[2020-09-15] MEDS ORDERED: LIDOCAINE 5% 1 PATCH TD SCH (09:00)
[2020-09-15] MEDS: cephALEXin 500 MG CAP PO SCH ×3 (11:56→20:14)
--- NOTE | 2020-09-15 13:10 | Consultation ---
Date of Consultation September 15, 2020 Assessment & Plan (1) Hereditary hemochromatosis: Patient has hx of hereditary hemochromatosis (unknown genotype) and currently being followed at [facility]. Managed with intermittent phlebotomy No acute intervention is needed at this time Followup as an outpatient Present on Admission?: Yes (2) Thrombocytopenia: New onset since admission Suspect secondary to early sepsis, stress, or drug (Abx) Optimize medical therapy for underlying conditions Daily CBC check Thank you for the courtesy of this consultation. Feel free to contact if any questions Present on Admission?: Yes History of Present Illness Reason for Consultation: Hemochromatosis Attending Physician: Brooke Nichole DO History of Present Illness 75 y/o female with hx of HLD, SVID, neuropathy c/b gait dysfunction, hypothyroidism, epilepsy/PNES, conversion disorder, depression/anxiety, memory issues/dementia and gout. She presented to the ER with altered mental status and abnormal labs. Unable to get any history from patient due to altered mental state. Outpatient labs were concerning for hypernatremia of 152. She was tested for a urine tract infection with urine culture growing gram-negative rods. Plan was to start on ceftriaxone IM however due to abnormal labs she has not received any doses and was transferred to the ER. Patient has had COVID-19 at the beginning of June. Patient also has hx of hereditary hemochromatosis and currently being followed at [facility] clinic. Patient was seen and examined at bedside. No acute distress. Poor historian. Lab and imaging studies were reviewed. Allergies Allergy/AdvReac Type Severity Reaction Status Date / Time hydrocortisone Allergy Intermediate DELIRIUM Verified 09/04/20 08:34 phenobarbital Allergy Intermediate RASH Verified 09/14/20 15:34 acetaminophen Allergy Unknown GI SYMPTOMS Verified 09/14/20 15:34 lamotrigine Allergy Unknown RASH Verified 09/14/20 15:34 hydrocodone Allergy Unknown Verified 09/14/20 15:34 Home Medications Medication Instructions Recorded Confirmed Type acetaminophen [Tylenol] 650 mg PO QID PRN 09/14/20 09/14/20 History allopurinol [Zyloprim] 300 mg PO DAILY 09/14/20 09/14/20 History bisacodyl [Dulcolax (bisacodyl)] 10 mg VA UD PRN 09/14/20 09/14/20 History calcium carbonate 500 mg PO BID 09/14/20 09/14/20 History carboxymethylcellulose sodium 2 drp OPHTHALMIC (EYE) QID 09/14/20 09/14/20 History [TheraTears] ceftriaxone 1 g IM DAILY 09/14/20 09/14/20 History cholecalciferol (vitamin D3) 50,000 unit PO .Q FRI 09/14/20 09/14/20 History citalopram 10 mg PO DAILY 09/14/20 09/14/20 History cyanocobalamin (vitamin B-12) 500 mcg PO DAILY 09/14/20 09/14/20 History [Vitamin B-12] donepezil 10 mg PO DAILY 09/14/20 09/14/20 History folic acid 1 mg PO DAILY 09/14/20 09/14/20 History lacosamide [Vimpat] 200 mg PO BID 09/14/20 09/14/20 History lactulose 30 ml PO DAILY 09/14/20 09/14/20 History levetiracetam [Keppra] 1,000 mg PO BID 09/14/20 09/14/20 History levothyroxine 75 mcg PO DAILY 09/14/20 09/14/20 History lidocaine [Lidocaine Pain Relief] 2 patch TOPICAL AMPM 09/14/20 09/14/20 History lorazepam 0.5 mg IM Q6 PRN 09/14/20 09/14/20 History mirtazapine 15 mg PO HS 09/14/20 09/14/20 History polyethylene glycol 3350 [Miralax] 17 g PO DAILY 09/14/20 09/14/20 History promethazine 25 mg PO Q6H PRN 09/14/20 09/14/20 History simvastatin 40 mg PO QPM 09/14/20 09/14/20 History soap [Baby Shampoo] 1 ea TOPICAL UD PRN 09/14/20 09/14/20 History zonisamide 400 mg PO DAILY 09/14/20 09/14/20 History Patient History Medical History Chronic cerebral ischemia Dementia Depression with anxiety Dizziness Generalized epilepsy Generalized osteoarthritis of multiple sites Gout Hereditary hemochromatosis Hypercholesteremia Hypothyroidism Peripheral neuropathy Family History Family/Other No pertinent past medical history Social History Smoking Status: Unknown if ever smoked Preferred Language: Amharic Communication Ability: Impaired Curtain Stitcher Required: No Beliefs That Will Affect Care: None Current Living Situation: Residential Assistive Devices: None Review of Systems Review of Systems: Unobtainable due to cognitive status Physical Exam Physical Exam: Constitutional: Vitals are stable, cachectic Eyes: Eyes are MCKENZIE EOMI without conjunctival erythema or icterus. ENT: External examination was negative for masses. Neck: Negative for masses or palpable thyromegaly. Respiratory: Lung sounds were generally clear bilaterally. Cardiovascular: Heart was RRR without significant murmur, gallops or rubs. Gastrointestinal: The abdomen was soft with normal bowel sounds. Lymphatic system: There was no palpable peripheral lymphadenopathy. Musculoskeletal System: The musculoskeletal system seemed concordant with age. Skin: The skin was negative for jaundice. Neurologic Exam: The exam was negative for any focal findings. Extremities: Negative for edema or erythema Results & Data ([facility]) Vital Signs (Past 12 Hours) Vital Signs Temp Pulse Pulse Resp BP BP Pulse Ox 09/15/20 11:13 36.3 C L 93 H 18 103/73 96 09/15/20 08:30 92 H 09/15/20 07:02 36.4 C L 60 18 104/65 96 09/15/20 04:27 36.4 C L 86 18 134/[address] SCAN BRAIN W/O CONTRAST CLINICAL HISTORY: 75 years-old Female with ams. Acutely altered mental status TECHNIQUE: Multiple axial CT images of the head were obtained without contrast. A dose lowering technique was utilized adhering to the principles of ALARA. COMPARISON: CT 03/29/2020. FINDINGS: No acute intracranial hemorrhage, midline shift, intracranial mass, hydrocephalus, territorial ischemia or abnormal extra-axial collection. Patchy white matter hypodensities suggest chronic microvascular ischemic disease. Cerebral vascular calcifications. The calvarium is intact. Metopic suture. Trace mastoid effusions. Paranasal sinuses are clear. Unremarkable soft tissues. Prior bilateral lens replacement. IMPRESSION: No acute intracranial abnormality.
[2020-09-15] MEDS ORDERED: CEFEPIME 1,000 MG in SYRINGE 0 ML IV SCH (16:00)
--- NOTE | 2020-09-15 16:57 | Hospitalist Progress Note ---
Date of Service September 15, 2020 Assessment & Plan (1) Sepsis: Lactate 2.5, repeat 1.9 IV fluid resuscitation with NSS 2L bolus Continue IV fluids with D5W due to hypernatremia (2) Acute UTI (urinary tract infection): Discontinue vancomycin on admission given gram-negative bacilli on previous urine culture Continue cefepime on admission, will change to keflex given cx results from 09/13 show Ecoli with sensitivity to cephalosporins (3) AMS (altered mental status): Appears to have had a decline since since June possibly due to Covid delirium versus morphine use (unclear reason for morphine given) versus multiple recent changes to medications, including citalopram/mirtazapine versus seizures versus progressive dementia (appears very fast decline per daughter for this). More acute decline explained by hypernatremia and current UTI Tolerated meds this AM, advance to reg diet and monitor B12, folate, Lyme pending (4) ISIDRO (acute kidney injury): Secondary to Lasix use with reduced oral intake. IV fluids as above Monitor with BMP in a.m. (5) Acute hypernatremia: Secondary to free water deficit due to poor oral intake D5W as above (6) Peripheral neuropathy: (7) Hypothyroidism: TSH WNL Continue levothyroxine 75 mcg p.o. daily (8) Hereditary hemochromatosis: Ferritin likely to be falsely elevated in infection. Will get transferrin saturation levels. Seen by Dr. Gonzales, no acute needs at this time regarding phlebotomy Recs for daily CBC to monitor thrombocytopenia (9) Seizure disorder: Epilepsy/PNES Per last neurology note. Continue Zonegran 400 mg nightly, Vimpat 200 mg twice daily, Keppra 1000 mg twice daily. (10) Severe protein-calorie malnutrition: N.p.o. 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 Pt denies fever, SOB, chest pain, abd pain, n/v/c/d, LE pain or swelling. Review of Systems Review of Systems: Pertinent positives and negatives reviewed in HPI--all others negative Physical Exam Constitutional: WD/WN, vitals as above Eyes: normal visual solomon by confrontation and + anicteric sclerae Neck: normal visual inspection and trachea midline Respiratory: normal respiratory effort, lungs clear to auscultation Cardiovascular: Rate/Rhythm: regular rate and regular rhythm Gastrointestinal (Abdomen): Inspection/Auscultation: abdomen not distended Percussion/Palpation: abdomen soft; abdomen nontender Musculoskeletal: Head/Neck/Chest: normocephalic and head atraumatic negative for edema, peripheral pulses intact Skin: no rashes, warm and dry Neurologic: awake and + confused Speech / Cognition: normal speech Psychiatric: Orientation: alert, oriented to person and cooperative; + not oriented to place and + not oriented to time Speech: normal rate/rhythm/volume of speech Affect: euthymic affect Thought Process: + thought process not clear or coherent Results & Data Results & Data ([facility]) Vital Signs (Past 12 Hours) Vital Signs Temp Pulse Pulse Resp BP Pulse Ox 09/15/20 15:48 89 09/15/20 15:22 89 09/15/20 11:13 36.3 C L 93 H 18 103/73 96 09/15/20 08:30 92 H 09/15/20 07:02 36.4 C L 60 18 104/65 96 PG Care Time/CCT Total # of Minutes Spent Total Time Spent with Patient: Total time spent is greater than 50% in coordination of care (as documented) at patient's floor/unit and/or counseling patient: Coding Level of Care Code 39958 Subseq Hosp Care Lvl 3 Diagnoses Sepsis A41.9 Acute UTI (urinary tract infection) N39.0 AMS (altered mental status) R41.82 Altered mental status type: unspecified ISIDRO (acute kidney injury) N17.9 Acute hypernatremia E87.0 Peripheral neuropathy G62.9 Hypothyroidism E03.9 Hereditary hemochromatosis E83.110 Seizure disorder G40.909 Severe protein-calorie malnutrition E43 (1) AMS (altered mental status) Altered mental status type: unspecified Qualified Code(s): R41.82 - Altered mental status, unspecified
[2020-09-16] MEDS: DEXTROSE 5% 1,000 ML IV SCH ×3 (02:12→20:57)
[2020-09-16 05:56] LABS: Hematocrit (blood only) 30.6 % (37-47); Hemoglobin 10.4 g/dL (12.0-16.0); Mean Corpuscular Hemoglobin 33.5 pg (25-34); Mean Corpuscular Volume 98.7 fL (80-100); Nucleated RBC # (auto) 0.03 K/uL (0-0); Nucleated RBC % (auto) 0.6 %; RDW Coefficient of Variation 15.7 % (11.5-14.5); White Blood Count 4.91 K/uL (4.8-10.8)
[2020-09-16 06:02] LABS: Mean Platelet Volume 10.4 fL (7.4-10.4); Platelet Count 87 K/uL (130-400)
[2020-09-16] MEDS: LEVOTHYROXINE SODIUM 75 MCG TABLET PO SCH (06:05)
[2020-09-16 06:34] LABS: Basophils # (auto) 0.01 K/uL (0-0.2); Basophils % (auto) 0.2 %; Eosinophils # (auto) 0.05 K/uL (0-0.5); Immature Granulocytes # (auto) 0.06 K/uL (0.00-0.02); Immature Granulocytes % (auto) 1.2 %; Lymphocytes # (auto) 0.88 K/uL (1.2-3.4); Lymphocytes % (auto) 17.9 %; Monocytes # (auto) 0.46 K/uL (0.11-0.59); Monocytes % (auto) 9.4 %; Neutrophils # (auto) 3.45 K/uL (1.4-6.5); Neutrophils % (auto) 70.3 %
[2020-09-16 06:42] LABS: Folate (Folic Acid) > 20.00 ng/ml (>5.38); Vitamin B12 1249 pg/ml (193-986)
[2020-09-16 07:04] LABS: Lyme Ab IgG w/WB Rflx Negative (Negative); Lyme Ab IgM w/WB Rflx Negative (Negative)
[2020-09-16] MEDS: cephALEXin 500 MG CAP PO SCH ×2 (07:30→20:59)
[2020-09-16] MEDS: CYANOCOBALAMIN 500 MCG TABLET (VITAMIN B-12) PO SCH (07:30)
[2020-09-16] MEDS: allopurinoL 300 MG TAB PO SCH (07:30)
[2020-09-16] MEDS: CITALOPRAM 20 MG TAB PO SCH (07:30)
[2020-09-16] MEDS: DONEPEZIL HCL 10 MG TAB PO SCH (07:31)
[2020-09-16] MEDS: FOLIC ACID 1 MG TAB PO SCH (07:31)
[2020-09-16] MEDS: levETIRAcetam 500 MG TAB PO SCH ×2 (07:31→20:58)
[2020-09-16] MEDS: ARTIFICIAL TEARS OP SCH ×4 (07:32→21:00)
[2020-09-16] MEDS: POLYETHYLENE (MIRALAX) 17 GM PACK PO SCH (07:32)
[2020-09-16] MEDS: LIDOCAINE 5% 1 PATCH TD SCH (07:32)
[2020-09-16] MEDS: LACTULOSE SYRUP 20 GM/30 ML UDC PO SCH (07:32)
[2020-09-16] MEDS: CALCIUM CARBONATE 1250MG TAB PO SCH ×2 (07:33→20:59)
[2020-09-16] MEDS: LACOSAMIDE 50 MG TABLET PO SCH ×2 (08:12→20:58)
--- NOTE | 2020-09-16 12:37 | Hospitalist Progress Note ---
Date of Service September 16, 2020 Assessment & Plan (1) Sepsis: Lactate 2.5, repeat 1.9 IV fluid resuscitation with NSS 2L bolus Continue IV fluids with D5W due to hypernatremia (2) Acute UTI (urinary tract infection): Discontinue vancomycin on admission given gram-negative bacilli on previous urine culture Continue cefepime on admission, will change to keflex given cx results from 09/13 show Ecoli with sensitivity to cephalosporins (3) AMS (altered mental status): Appears to have had a decline since since June possibly due to Covid delirium versus morphine use (unclear reason for morphine given) versus multiple recent changes to medications, including citalopram/mirtazapine versus seizures versus progressive dementia (appears very fast decline per daughter for this). More acute decline explained by hypernatremia and current UTI Tolerating PO with moderate intake B12, folate WNL, Lyme neg (4) ISIDRO (acute kidney injury): Secondary to Lasix use with reduced oral intake. IV fluids as above Monitor with BMP in a.m. (5) Acute hypernatremia: Secondary to free water deficit due to poor oral intake D5W as above (6) Peripheral neuropathy: (7) Hypothyroidism: TSH WNL Continue levothyroxine 75 mcg p.o. daily (8) Hereditary hemochromatosis: Ferritin likely to be falsely elevated in infection. Will get transferrin saturation levels. Seen by Dr. Gonzales, no acute needs at this time regarding phlebotomy Recs for daily CBC to monitor thrombocytopenia (9) Seizure disorder: Epilepsy/PNES Per last neurology note. Continue Zonegran 400 mg nightly, Vimpat 200 mg twice daily, Keppra 1000 mg twice daily. (10) Severe protein-calorie malnutrition: Reg diet Admission and Anticipated Discharge Date Admission Date: September 14, 2020 Subjective Per nursing, pt has been eating about 40% of her meals before she says she doesn't want any more. She has mostly been making statements that are not c/w what is being asked, but has also had some statements that are appropriate. Pt denies fever, SOB, chest pain, abd pain, n/v/c/d, LE pain or swelling. Daughter told me yesterday that pt has had multiple falls recently. She states that she feels most of her issues started after she had been getting morphine, which was after she had recovered from COVID. She states that [facility] told her it is their policy to have morphine ordered for pts. Physical Exam Constitutional: WD/WN, vitals as above Eyes: normal visual solomon by confrontation and + anicteric sclerae Neck: normal visual inspection and trachea midline Respiratory: normal respiratory effort, lungs clear to auscultation Cardiovascular: Rate/Rhythm: regular rate and regular rhythm Gastrointestinal (Abdomen): Inspection/Auscultation: abdomen not distended Percussion/Palpation: abdomen soft; abdomen nontender Musculoskeletal: Head/Neck/Chest: normocephalic and head atraumatic Skin: no rashes, warm and dry Neurologic: awake and + confused Speech / Cognition: normal speech Psychiatric: Orientation: alert, oriented to person and cooperative; + not oriented to place and + not oriented to time Speech: normal rate/rhythm/volume of speech Affect: euthymic affect Thought Process: + thought process not clear or coherent Results & Data Results & Data ([facility]) Vital Signs (Past 12 Hours) Vital Signs Temp Pulse Pulse Resp BP Pulse Ox 09/16/20 11:42 36.5 C 76 18 118/70 98 09/16/20 08:30 91 H 09/16/20 07:08 36.3 C L 85 18 111/56 L 99 09/16/20 05:00 86 09/16/20 04:22 36.3 C L 80 20 119/72 97 PG Care Time/CCT Total # of Minutes Spent Total Time Spent with Patient: Total time spent is greater than 50% in coordination of care (as documented) at patient's floor/unit and/or counseling patient: Coding Level of Care Code 35526 Subseq Hosp Care Lvl 3 Diagnoses Sepsis A41.9 Acute UTI (urinary tract infection) N39.0 AMS (altered mental status) R41.82 Altered mental status type: unspecified ISIDRO (acute kidney injury) N17.9 Acute hypernatremia E87.0 Peripheral neuropathy G62.9 Hypothyroidism E03.9 Hereditary hemochromatosis E83.110 Seizure disorder G40.909 Severe protein-calorie malnutrition E43 (1) AMS (altered mental status) Altered mental status type: unspecified Qualified Code(s): R41.82 - Altered mental status, unspecified
[2020-09-16] MEDS: MIRTAZAPINE TAB 15 MG TAB PO SCH (20:59)
[2020-09-16] MEDS: SIMVASTATIN 40 MG TAB PO SCH (21:00)
[2020-09-17] MEDS: DEXTROSE 5% 1,000 ML IV SCH ×2 (06:02→15:32)
[2020-09-17] MEDS: LEVOTHYROXINE SODIUM 75 MCG TABLET PO SCH ×2 (06:03→06:53)
[2020-09-17] MEDS: LIDOCAINE 5% 1 PATCH TD SCH (07:40)
[2020-09-17] MEDS: CYANOCOBALAMIN 500 MCG TABLET (VITAMIN B-12) PO SCH (07:41)
[2020-09-17] MEDS: CITALOPRAM 20 MG TAB PO SCH (07:41)
[2020-09-17] MEDS: CALCIUM CARBONATE 1250MG TAB PO SCH ×2 (07:41→22:01)
[2020-09-17] MEDS: allopurinoL 300 MG TAB PO SCH (07:41)
[2020-09-17] MEDS: POLYETHYLENE (MIRALAX) 17 GM PACK PO SCH (07:41)
[2020-09-17] MEDS: LACTULOSE SYRUP 20 GM/30 ML UDC PO SCH (07:41)
[2020-09-17] MEDS: FOLIC ACID 1 MG TAB PO SCH (07:41)
[2020-09-17] MEDS: cephALEXin 500 MG CAP PO SCH ×2 (07:41→22:01)
[2020-09-17] MEDS: levETIRAcetam 500 MG TAB PO SCH (07:42)
[2020-09-17] MEDS: ARTIFICIAL TEARS OP SCH ×4 (07:42→20:03)
[2020-09-17] MEDS: DONEPEZIL HCL 10 MG TAB PO SCH (07:42)
[2020-09-17] MEDS: LACOSAMIDE 50 MG TABLET PO SCH (08:00)
[2020-09-17 11:52] LABS: Hematocrit (blood only) 32.8 % (37-47); Hemoglobin 11.4 g/dL (12.0-16.0); Mean Corpuscular Hgb Conc 34.8 g/dL (32-36); Mean Corpuscular Volume 95.1 fL (80-100); RDW Coefficient of Variation 15.8 % (11.5-14.5); RDW Standard Deviation 53.8 fL (36.4-46.3); Red Blood Count 3.45 M/uL (4.2-5.4); White Blood Count 6.29 K/uL (4.8-10.8)
[2020-09-17 11:55] LABS: Mean Platelet Volume 11.5 fL (7.4-10.4); Platelet Count 97 K/uL (130-400)
[2020-09-17 12:13] LABS: Basophils # (auto) 0.02 K/uL (0-0.2); Basophils % (auto) 0.3 %; Eosinophils # (auto) 0.03 K/uL (0-0.5); Eosinophils % (auto) 0.5 %; Immature Granulocytes % (auto) 1.6 %; Lymphocytes # (auto) 1.02 K/uL (1.2-3.4); Lymphocytes % (auto) 16.2 %; Monocytes # (auto) 0.56 K/uL (0.11-0.59); Monocytes % (auto) 8.9 %; Neutrophils # (auto) 4.56 K/uL (1.4-6.5); Neutrophils % (auto) 72.5 %
--- NOTE | 2020-09-17 13:40 | Hospitalist Progress Note ---
Date of Service September 17, 2020 Assessment & Plan (1) Sepsis: Lactate 2.5, repeat 1.9 IV fluid resuscitation with NSS 2L bolus on admission (2) Acute UTI (urinary tract infection): Discontinue vancomycin on admission given gram-negative bacilli on previous urine culture Continue cefepime on admission, will change to keflex given cx results from / show Ecoli with sensitivity to cephalosporins (3) AMS (altered mental status): Appears to have had a decline since since June possibly due to Covid delirium versus morphine use (unclear reason for morphine given at SNF per daughter) versus multiple recent changes to medications, including citalopram/mirtazapine versus seizures versus progressive dementia (appears very fast decline per daughter for this). More acute decline explained by hypernatremia and current UTI Tolerating PO with moderate intake B12, folate WNL, Lyme neg Further review of the chart notes for recent med changes with neuro (Dr. Carrillo) after visit on 07/04. Possibly reason for AMS?? Neuro c/s pending Daughter tells me that pt has had many "grand mal" seizures and has had many concussions over the years. Possibly some underlying brain damage related to this (4) ISIDRO (acute kidney injury): Secondary to Lasix use with reduced oral intake. IV fluids as above Monitor with BMP in a.m. (5) Acute hypernatremia: Secondary to free water deficit due to poor oral intake D5W as above (6) Peripheral neuropathy: (7) Hypothyroidism: TSH WNL Continue levothyroxine 75 mcg p.o. daily (8) Hereditary hemochromatosis: Ferritin likely to be falsely elevated in infection. Will get transferrin saturation levels. Seen by heme, no acute needs at this time regarding phlebotomy Recs for daily CBC to monitor thrombocytopenia, has been stable (9) Seizure disorder: Epilepsy/PNES Per last neurology note. Continue Zonegran 400 mg nightly, Vimpat 200 mg twice daily, Keppra 1000 mg twice daily. (10) Severe protein-calorie malnutrition: Reg diet Admission and Anticipated Discharge Date Admission Date: September 14, 2020 Subjective Pt specifically denies pain today. Per nursing, she did eat this AM after initially refusing. She took her meds as well. Nursing states that yesterday afternoon and this AM she has had periods of being more interactive with them mixed with periods where she does not answer questions appropriately. There have been no specific complaints to nursing by pt. She tells me she feels fine today. Physical Exam Constitutional: WD/WN, vitals as above Eyes: normal visual solomon by confrontation and + anicteric sclerae Neck: normal visual inspection and trachea midline Respiratory: normal respiratory effort, lungs clear to auscultation Cardiovascular: Rate/Rhythm: regular rate and regular rhythm Gastrointestinal (Abdomen): Inspection/Auscultation: abdomen not distended Percussion/Palpation: abdomen soft; abdomen nontender Musculoskeletal: Head/Neck/Chest: normocephalic and head atraumatic Skin: no rashes, warm and dry Neurologic: awake and + confused Speech / Cognition: normal speech Psychiatric: Orientation: alert, oriented to person and cooperative; + not oriented to place and + not oriented to time Speech: normal rate/rhythm/volume of speech Thought Process: clear/coherent thought process (answers some questions clearly, others she will look at you w/o response) Results & Data Results & Data ([facility]) Vital Signs (Past 12 Hours) Vital Signs Temp Pulse Pulse Resp BP Pulse Ox 09/17/20 11:08 36.5 C 82 20 99/66 L 100 09/17/20 08:30 64 09/17/20 07:29 36.5 C 68 18 132/79 100 09/17/20 02:27 86 PG Care Time/CCT Total # of Minutes Spent Total Time Spent with Patient: Total time spent is greater than 50% in coordination of care (as documented) at patient's floor/unit and/or counseling patient: Coding Level of Care Code 04025 Subseq Hosp Care Lvl 3 Diagnoses Sepsis A41.9; R65.20; N17.9 Acute renal failure type: unspecified Sepsis acute organ dysfunction status: with acute organ dysfunction Sepsis type: sepsis due to unspecified organism Severe sepsis acute organ dysfunction type: acute renal failure Severe sepsis shock status: without septic shock Acute UTI (urinary tract infection) N39.0 AMS (altered mental status) R41.82 Altered mental status type: unspecified ISIDRO (acute kidney injury) N17.9 Acute hypernatremia E87.0 Peripheral neuropathy G62.9 Hypothyroidism E03.9 Hereditary hemochromatosis E83.110 Seizure disorder G40.909 Severe protein-calorie malnutrition E43 (1) Sepsis Acute renal failure type: unspecified Sepsis acute organ dysfunction status: with acute organ dysfunction Sepsis type: sepsis due to unspecified organism Severe sepsis acute organ dysfunction type: acute renal failure Severe sepsis shock status: without septic shock Qualified Code(s): A41.9 - Sepsis, unspecified organism; R65.20 - Severe sepsis without septic shock; N17.9 - Acute kidney failure, unspecified (2) AMS (altered mental status) Altered mental status type: unspecified Qualified Code(s): R41.82 - Altered mental status, unspecified
[2020-09-17] MEDS ORDERED: HALOPERIDOL LACTATE 5 MG/ML 1 ML VIAL IM PRN (21:07)
[2020-09-17] MEDS: MIRTAZAPINE TAB 15 MG TAB PO SCH (22:02)
[2020-09-17] MEDS: SIMVASTATIN 40 MG TAB PO SCH (22:03)
[2020-09-17] MEDS: LACOSAMIDE 200 MG in SODIUM CHLORIDE 0.9% 50 ML IV SCH (22:03)
[2020-09-17] MEDS: levETIRAcetam 1,000 MG in 0.9 % SODIUM CHLORIDE 100 ML IV SCH (22:58)
[2020-09-18] MEDS: DEXTROSE 5% 1,000 ML IV SCH ×3 (02:53→22:19)
[2020-09-18 06:27] LABS: Hematocrit (blood only) 30.7 % (37-47); Hemoglobin 10.9 g/dL (12.0-16.0); Mean Corpuscular Hemoglobin 33.2 pg (25-34); Mean Corpuscular Hgb Conc 35.5 g/dL (32-36); Mean Corpuscular Volume 93.6 fL (80-100); RDW Coefficient of Variation 15.7 % (11.5-14.5); RDW Standard Deviation 52.1 fL (36.4-46.3); Red Blood Count 3.28 M/uL (4.2-5.4); White Blood Count 8.09 K/uL (4.8-10.8)
[2020-09-18 06:59] LABS: Platelet Count 97 K/uL (130-400)
[2020-09-18 07:00] LABS: Basophils # (auto) 0.01 K/uL (0-0.2); Basophils % (auto) 0.1 %; Eosinophils # (auto) 0.02 K/uL (0-0.5); Eosinophils % (auto) 0.2 %; Immature Granulocytes # (auto) 0.03 K/uL (0.00-0.02); Immature Granulocytes % (auto) 0.4 %; Lymphocytes # (auto) 0.73 K/uL (1.2-3.4); Monocytes # (auto) 0.54 K/uL (0.11-0.59); Monocytes % (auto) 6.7 %; Neutrophils # (auto) 6.76 K/uL (1.4-6.5); Neutrophils % (auto) 83.6 %
[2020-09-18] MEDS: LEVOTHYROXINE SODIUM 75 MCG TABLET PO SCH (08:21)
[2020-09-18] MEDS: ARTIFICIAL TEARS OP SCH ×4 (08:21→20:26)
[2020-09-18] MEDS: DONEPEZIL HCL 10 MG TAB PO SCH (08:21)
[2020-09-18] MEDS: FOLIC ACID 1 MG TAB PO SCH (08:21)
[2020-09-18] MEDS: CITALOPRAM 20 MG TAB PO SCH (08:21)
[2020-09-18] MEDS: cephALEXin 500 MG CAP PO SCH (08:21)
[2020-09-18] MEDS: LACTULOSE SYRUP 20 GM/30 ML UDC PO SCH (08:21)
[2020-09-18] MEDS: LIDOCAINE 5% 1 PATCH TD SCH (08:22)
[2020-09-18] MEDS: CYANOCOBALAMIN 500 MCG TABLET (VITAMIN B-12) PO SCH (08:22)
[2020-09-18] MEDS: allopurinoL 300 MG TAB PO SCH (08:22)
[2020-09-18] MEDS: CALCIUM CARBONATE 1250MG TAB PO SCH ×2 (08:22→20:20)
[2020-09-18] MEDS: POLYETHYLENE (MIRALAX) 17 GM PACK PO SCH (08:22)
[2020-09-18] MEDS: levETIRAcetam 1,000 MG in 0.9 % SODIUM CHLORIDE 100 ML IV SCH ×2 (08:23→20:21)
[2020-09-18 09:11] LABS: Albumin Level 2.6 gm/dl (3.4-5.0); BUN Creatinine Ratio 16.8 (10-20); Bilirubin,Total 0.6 mg/dl (0.2-1); Calcium 8.2 mg/dl (8.5-10.1); Creatinine Clr Calc Pharmacy 59.5 ml/min; Est GFR (African American) 102.6; Est GFR (Non-African American) 88.5; Globulin 2.7 gm/dl (2.5-4.0); Potassium 2.4 mmol/L (3.5-5.1); Total Protein 5.3 gm/dl (6.4-8.2)
[2020-09-18] MEDS: LACOSAMIDE 200 MG in SODIUM CHLORIDE 0.9% 50 ML IV SCH ×2 (09:22→20:56)
[2020-09-18] MEDS: POTASSIUM CHLORIDE / WTR 10 MEQ/100 ML PLCT IV SCH ×6 (09:49→15:39)
[2020-09-18] MEDS: cefTRIAXone SODIUM 1,000 MG in DEXTROSE 5% 50 ML IV SCH (09:49)
--- NOTE | 2020-09-18 13:22 | Neurology Consultation ---
Date of Consultation September 18, 2020 Assessment & Plan (1) Severe protein-calorie malnutrition: (2) Seizure disorder: (3) Hereditary hemochromatosis: (4) Acute hypernatremia: (5) Sepsis: (6) AMS (altered mental status): Faye Aragon is a 75 yo woman with PMH of HLD, SVID, neuropathy c/b gait dysfunction, hypothyroidism, epilepsy/PNES, conversion disorder, depression/anxiety, memory issues/dementia, hemochromatosis and gout who presents to [facility] after worsening of AMS in the setting of UTI. # AMS: most likely due to combination of UTI, ISIDRO/uremia, hypernatremia/multiple electrolyte abnormalities in the setting of infection in the setting of poor baseline mental status/possible dementia. - MRI brain w/o to r/o stroke - continue to treat infection and electrolyte abnormalities per primary team - delirium precautions, lights on during day/off at night, frequent re- orientation, positive reminders of her boyfriend at the nursing facility - continue keppra 1g bid and vimpat 200mg bid; would try to have senior living bring in zonegran 400mg qhs to administer if she will take PO again - will obtain routine EEG, if no seizures noted, will decrease vimpat to 100mg bid - would consider getting psych involved given concern from nursing facility staff that she may have more behavioral issues related to not taking PO (may need adjustment of celexa) - if events c/f seizures noted, would consider transfer to higher level of care for cEEG for spell classification/rule out NCSE Thank you for this interesting consult. Plan of care discussed with primary team. Please call or text with questions. (7) Acute UTI (urinary tract infection): (8) ISIDRO (acute kidney injury): (9) Hypothyroidism: History of Present Illness Attending Physician: Sindy Schmidt MD History of Present Illness Faye Aragon is a 75 yo woman with PMH of HLD, SVID, neuropathy c/b gait dysfunction, hypothyroidism, epilepsy/PNES, conversion disorder, depression/anxiety, memory issues/dementia, hemochromatosis and gout who presents to [facility] after worsening of AMS in the setting of UTI. In the ED, she was afebrile, BP 95/68, heart rate 110, respiratory rate 20, satting 92% on room air. Labs notable for WBC 4.91, hemoglobin 10.4 with MCV 98.8, platelets 168, sodium elevated 152, chloride elevated to 119,, gap 9, BUN 80, creatinine 1.9, glucose 143, calcium elevated 11.2, magnesium elevated 2.6, AST/ALT within normal, alkaline phosphatase elevated to 128, troponin mildly elevated 0.089, albumin within normal 3.9, TSH within normal, lactate mildly elevated 2.5, iron elevated to 180 transferrin low at 127, procalcitonin within normal, UA positive for infection. Imaging independently reviewed. CT head shows no hemorrhage or hypodensity, moderate SVID, punctate chronic appearing infarct in the right midbrain. MRI brain from 05/29/2017 independently reviewed and showed mild to moderate SPID but no tumor, stroke, midline malformation, or clear brain iron deposition. Emphysema since admission is notable for ongoing anemia, platelets have dropped to 97, potassium low at 2.4, sodium has normalized to 141, BUN is decreased to 11 with creatinine 0.64, calcium mildly low at 8.2, LFTs normalized, ammonia 29.2, albumin decreased at 2.6, B12 1249, folate greater than 20, Lyme negative, Keppra level pending. She has been refusing PO, so has only been receiving keppra 1g bid IV and vimpat 200mg bid IV, as well as ceftriaxone for treatment of her UTI. Of note, she did have her antidepressant changed from nortriptyline to celexa 10mg daily and mirtazapine 15mg qhs following her neurology appointment at the end of August 2020. On evaluation, she was unable to provide any further information. She laid in bed and tracked examiner, would withdraw to noxious stimuli but otherwise non- conversant with minimal spontaneous movements. Allergies Allergy/AdvReac Type Severity Reaction Status Date / Time hydrocortisone Allergy Intermediate DELIRIUM Verified 09/04/20 08:34 phenobarbital Allergy Intermediate RASH Verified 09/14/20 15:34 acetaminophen Allergy Unknown GI SYMPTOMS Verified 09/14/20 15:34 lamotrigine Allergy Unknown RASH Verified 09/14/20 15:34 hydrocodone Allergy Unknown Verified 09/14/20 15:34 Home Medications Medication Instructions Recorded Confirmed Type acetaminophen [Tylenol] 650 mg PO QID PRN 09/14/20 09/14/20 History allopurinol [Zyloprim] 300 mg PO DAILY 09/14/20 09/14/20 History bisacodyl [Dulcolax (bisacodyl)] 10 mg [place] UD PRN 09/14/20 09/14/20 History calcium carbonate 500 mg PO BID 09/14/20 09/14/20 History carboxymethylcellulose sodium 2 drp OPHTHALMIC (EYE) QID 09/14/20 09/14/20 History [TheraTears] ceftriaxone 1 g IM DAILY 09/14/20 09/14/20 History cholecalciferol (vitamin D3) 50,000 unit PO .Q FRI 09/14/20 09/14/20 History citalopram 10 mg PO DAILY 09/14/20 09/14/20 History cyanocobalamin (vitamin B-12) 500 mcg PO DAILY 09/14/20 09/14/20 History [Vitamin B-12] donepezil 10 mg PO DAILY 09/14/20 09/14/20 History folic acid 1 mg PO DAILY 09/14/20 09/14/20 History lacosamide [Vimpat] 200 mg PO BID 09/14/20 09/14/20 History lactulose 30 ml PO DAILY 09/14/20 09/14/20 History levetiracetam [Keppra] 1,000 mg PO BID 09/14/20 09/14/20 History levothyroxine 75 mcg PO DAILY 09/14/20 09/14/20 History lidocaine [Lidocaine Pain Relief] 2 patch TOPICAL AMPM 09/14/20 09/14/20 History lorazepam 0.5 mg IM Q6 PRN 09/14/20 09/14/20 History mirtazapine 15 mg PO HS 09/14/20 09/14/20 History polyethylene glycol 3350 [Miralax] 17 g PO DAILY 09/14/20 09/14/20 History promethazine 25 mg PO Q6H PRN 09/14/20 09/14/20 History simvastatin 40 mg PO QPM 09/14/20 09/14/20 History soap [Baby Shampoo] 1 ea TOPICAL UD PRN 09/14/20 09/14/20 History zonisamide 400 mg PO DAILY 09/14/20 09/14/20 History Patient History Medical History Chronic cerebral ischemia Dementia Depression with anxiety Dizziness Generalized epilepsy Generalized osteoarthritis of multiple sites Gout Hereditary hemochromatosis Hypercholesteremia Hypothyroidism Peripheral neuropathy Family History Family/Other No pertinent past medical history Social History Smoking Status: Unknown if ever smoked Preferred Language: Bengali Communication Ability: Effective Counter Stacker Required: No Beliefs That Will Affect Care: None Current Living Situation: [facility] Assistive Devices: None Review of Systems Review of Systems: Unobtainable due to cognitive status Exam (Neuro) Physical Exam: General Exam: GEN: NAD, sitting in bed HEENT: No conjunctival injection, no rhinorrhea. CV: RRR, no peripheral edema PULM: Nonlabored respirations on room air. Neuro Exam: MS: Awake and Alert. Non-verbal, did not answer any orientation questions or follow commands. Inattentive. Cognition and memory grossly impaired. CN: BTT. Unable to assess fundi on fundoscopic exam. PERRLA OU. EOMI without clear nystagmus. Facial muscles full and symmetric. Hearing intact to conversation. MOTOR: Normal bulk and tone. RUE/RLE antigravity with minimal drift, LUE/LLE antigravity with drift. REFLEXES: 1+ at biceps, triceps, brachioradialis, 1patella and Achilles bilaterally. Flexor plantar responses bilaterally. SENSORY: Withdraws to noxious stimuli throughout. COORDINATION: No dysmetria or ataxia on observed movements. GAIT: deferred given physical/mental status Results & Data ([facility] Vital Signs (Past 12 Hours) Vital Signs Temp Pulse Pulse Resp BP BP Pulse Ox 09/18/20 11:23 36.8 C 57 L 18 107/59 L 100 09/18/20 07:31 36.8 C 95 H 18 139/87 95 09/18/20 07:20 78 09/18/20 04:00 35.5 C L 91 H 20 143/90 H 99 09/18/20 01:20 84 PG Care Time/CCT Total # of Minutes Spent Total Time Spent with Patient: Total time spent is greater than 50% in coordination of care (as documented) at patient's floor/unit and/or counseling patient: Coding Level of Care Code 06812 Initial Inpt Care Lvl 3 Diagnoses Severe protein-calorie malnutrition E43 Seizure disorder G40.909 Hereditary hemochromatosis E83.110 Acute hypernatremia E87.0 Sepsis A41.9; R65.20; N17.9 Acute renal failure type: unspecified Sepsis acute organ dysfunction status: with acute organ dysfunction Sepsis type: sepsis due to unspecified organism Severe sepsis acute organ dysfunction type: acute renal failure Severe sepsis shock status: without septic shock AMS (altered mental status) R41.82 Altered mental status type: unspecified Acute UTI (urinary tract infection) N39.0 ISIDRO (acute kidney injury) N17.9 Hypothyroidism E03.9 (1) Sepsis Acute renal failure type: unspecified Sepsis acute organ dysfunction status: with acute organ dysfunction Sepsis type: sepsis due to unspecified organism Severe sepsis acute organ dysfunction type: acute renal failure Severe sepsis shock status: without septic shock Qualified Code(s): A41.9 - Sepsis, unspecified organism; R65.20 - Severe sepsis without septic shock; N17.9 - Acute kidney failure, unspecified (2) AMS (altered mental status) Altered mental status type: unspecified Qualified Code(s): R41.82 - Altered mental status, unspecified
--- NOTE | 2020-09-18 17:38 | Hospitalist Progress Note ---
Date of Service September 18, 2020 Assessment & Plan (1) AMS (altered mental status): Appears to have had a decline since since June possibly due to Covid delirium versus morphine use (unclear reason for morphine given at SNF per daughter) versus multiple recent changes to medications, including citalopram/mirtazapine versus seizures versus progressive dementia (appears very fast decline per daughter for this) versus worsening depression with psychosis. More acute decline explained by hypernatremia and current UTI, however both these are being corrected and does not seem to have much improvement Refusing meds and not to help explore eating this morning B12, folate WNL, Lyme neg MRI brain 2017 normal Appreciate Neuro consult: question seizure activity vs conversion/psych issues, combo of UTI/ISIDRO and uremia, hypernatremia/lyte abnormalities in the setting of infection in the setting of poor baseline mental status/possible dementia and recommends: -MRI Brain-trying to get Vagus Nerve stimulator turned off through [facility] [place] . They need her op report from [place]-requested this - continue to treat infection and electrolyte abnormalities - delirium precautions, lights on during day/off at night, frequent re- orientation, positive reminders of her boyfriend at the nursing facility - continue keppra 1g bid and vimpat 200mg bid; [facility] to have [facility] bring in zonegran 400mg qhs to administer if she will take PO again - will obtain routine EEG, if no seizures noted, will decrease vimpat to 100mg bid - would consider getting psych involved given concern from nursing facility staff that she may have more behavioral issues related to not taking PO (may need adjustment of celexa) - if events c/f seizures noted, would consider transfer to higher level of care for cEEG for spell classification/rule out NCSE -Will consult Psych as well to help explore any potential depression with psychosis (2) Sepsis: Ruled out. Does have a UTI but I do not believe this caused her to have sepsis Lactate 2.5, repeat 1.9 after iVFs IV fluid resuscitation with NSS 2L bolus on admission (3) Acute UTI (urinary tract infection): Received cefepime on admission, then changed to keflex given cx results from 09/13 show Ecoli with sensitivity to cephalosporins However, today she is not taking po meds-refusing Convert back to IV Ceftriaxone until taking p.o. or completes a 7-day course (4) ISIDRO (acute kidney injury): Secondary to Lasix use with reduced oral intake. Creatinine is now improved to 0.64 after receiving IV fluids and holding Lasix Monitor with BMP in a.m. (5) Acute hypernatremia: Secondary to free water deficit due to poor oral intake Sodium 152 for several days after admission and now improved to 141 Continue D5W at 100 mL's per hour Follow BMP (6) Peripheral neuropathy: Noted in history (7) Hypothyroidism: TSH WNL here at 1.96 Continue levothyroxine 75 mcg p.o. daily (8) Seizure disorder: Epilepsy/PNES Per last neurology note. Continue Zonegran 400 mg nightly if can be brought in from nursing facility -Continue Vimpat 200 mg twice daily, Keppra 1000 mg twice daily, both of which have been converted to IV while she is refusing p.o. meds. No definite seizure activity noted here Has had epilepsy since childhood Appreciate neurology input Obtain EEG (9) Severe protein-calorie malnutrition: Reg diet (10) Thrombocytopenia: Platelets were down to 87 and now back up to 97 Appreciate hematology consultation Possibly secondary to early sepsis, stress, or drug (antibiotics) as per hematology Improving, follow CBC (11) Hypercholesteremia: Continue simvastatin (12) Depression with anxiety: With a long history of such Was just placed on citalopram and mirtazapine 2 weeks ago by neurology -We will hold mirtazapine in case contributing to worsening mental status Continue citalopram for now Consult psychiatry (13) Gout: No acute issues Continue home allopurinol (14) Anemia: Hemoglobin low at 10.9, normocytic B12 and folate levels here are normal Iron studies consistent with iron overload with transferrin saturation of 101%, consistent with known hereditary hemochromatosis Check Hemoccult stool Could be from previous phlebotomy? Unclear when last phlebotomy was (15) Hypokalemia: Potassium severely low today at 2.4 She typically is on Lasix with potassium both of which have been on hold Is refusing p.o. Give potassium chloride 60 mEq IV today Follow BMP and magnesium level in the morning (16) Metabolic acidosis: Serum bicarbonate today is 20, anion gap is only 9 Unclear cause, she did have loose stool today and is on lactulose, could be GI losses Follow BMP in the morning (17) Hereditary hemochromatosis: Transferrin saturation elevated at 101% Seen by heme, no acute needs at this time regarding phlebotomy (18) DVT prophylaxis: We will add on Nel Disposition-continued stay on medical floor with telemetry PT/OT ordered but not completed yet due to altered mental status Admission and Anticipated Discharge Date Admission Date: September 14, 2020 Subjective Patient was noted to refuse her breakfast and medications this morning. She was quite agitated later in the day but then improved after having a bowel movement and getting cleaned up with that and a bath as per nurses aides. When I talked to her, she kept her eyes closed and continued to repeat "it comes from both sides" and "thank you." She would not answer my other questions. Normal sinus rhythm with PVCs with rates in the 70s to 80s on telemetry. She was given IM Haldol overnight last night for agitation I discussed her case with neurology who reports this is similar to how she was when she was seen in the office 2 weeks ago. I also had an extensive conversation with her daughter on the phone this evening who reports that the patient was completely "with it" a month ago. The daughter also tells me that she was aware of the patient's relationship with "Charles" at the prison and that they were long before the patient's symptoms began and does not think that her depression worsening would have anything to do with that. I also spent 35 minutes on the phone trying to get in touch with the medical billing representative from her vagus nerve stimulator company and arranging to get records so that she can get her brain MRI approved. Review of Systems Review of Systems: Unobtainable due to cognitive status Physical Exam Constitutional: WD/WN, vitals as above Eyes: + anicteric sclerae Neck: trachea midline, no thyromegaly Respiratory: normal respiratory effort, lungs clear to auscultation Cardiovascular: RRR, no murmur, no edema Chest (Breasts): Chest: normal inspection of chest Gastrointestinal (Abdomen): normal bowel sounds, soft, nontender, no hepatosplenomegaly Musculoskeletal: Extremities: extremities normal to inspection; no cyanosis and no clubbing Skin: no rashes, warm and dry Neurologic: moves all extremities and awake; no focal motor deficits Psychiatric: Orientation: alert, oriented to person and cooperative; + not oriented to place and + not oriented to time Eye Contact: + poor eye contact Affect: + flat affect Thought Process: + looseness of associations and + incoherent thought process Lymphatic: no lymphedema Results & Data Results & Data ([facility]) Vital Signs (Past 12 Hours) Vital Signs Temp Pulse Pulse Pulse Resp BP Pulse Ox 09/18/20 16:00 35.3 C L 71 18 136/84 98 09/18/20 11:23 36.8 C 57 L 18 107/59 L 100 09/18/20 07:31 36.8 C 95 H 18 139/87 95 09/18/20 07:20 78 Laboratory Results 09/18/20 09/18/20 Range/Units 06:11 06:10 WBC 8.09 (4.8-10.8) K/uL RBC 3.28 L (4.2-5.4) M/uL Hgb 10.9 L (12.0-16.0) g/dL Hct 30.7 L (37-47) % MCV 93.6 (80-100) fL MCH 33.2 (25-34) pg MCHC 35.5 (32-36) g/dL RDW Std Deviation 52.1 H (36.4-46.3) fL RDW Coeff of Skip 15.7 H (11.5-14.5) % Plt Count 97 L (130-400) K/uL MPV 11.0 H (7.4-10.4) fL Immature Gran % (Auto) 0.4 % Neut % (Auto) 83.6 % Lymph % (Auto) 9.0 % [place] % (Auto) 6.7 % Eos % (Auto) 0.2 % Baso % (Auto) 0.1 % Neut # (Auto) 6.76 H (1.4-6.5) K/uL Lymph # (Auto) 0.73 L (1.2-3.4) K/uL [place] # (Auto) 0.54 (0.11-0.59) K/uL Eos # (Auto) 0.02 (0-0.5) K/uL Baso # (Auto) 0.01 (0-0.2) K/uL Immature Gran # (Auto) 0.03 H (0.00-0.02) K/uL Sodium 141 (136-145) mmol/L Potassium 2.4 L* (3.5-5.1) mmol/L Chloride 110 H (98-107) mmol/L Carbon Dioxide 20 L (21-32) mmol/L Anion Gap 11.0 (3-11) BUN 11 (7-18) mg/dl Creatinine 0.64 (0.6-1.2) mg/dl Est Cr Clr Drug Dosing 59.5 ml/min Est GFR ( Amer) 102.6 Est GFR (Non-Af Amer) 88.5 BUN/Creatinine Ratio 16.8 (10-20) Glucose 146 H (70-99) mg/dl Calcium 8.2 L (8.5-10.1) mg/dl Total Bilirubin 0.6 (0.2-1) mg/dl AST 27 (15-37) U/L ALT 32 (12-78) U/L Alkaline Phosphatase 95 (45-117) U/L Total Protein 5.3 L (6.4-8.2) gm/dl Albumin 2.6 L (3.4-5.0) gm/dl Globulin 2.7 (2.5-4.0) gm/dl Albumin/Globulin Ratio 1.0 (0.9-2) PG Care Time/CCT Total # of Minutes Spent Total Time Spent with Patient: Total time spent is greater than 50% in coordination of care (as documented) at patient's floor/unit and/or counseling patient: Coding Level of Care Code 18644 Subseq Hosp Care Lvl 3 Diagnoses AMS (altered mental status) R41.82 Altered mental status type: unspecified Sepsis A41.9; R65.20; N17.9 Acute renal failure type: unspecified Sepsis acute organ dysfunction status: with acute organ dysfunction Sepsis type: sepsis due to unspecified organism Severe sepsis acute organ dysfunction type: acute renal failure Severe sepsis shock status: without septic shock Acute UTI (urinary tract infection) N39.0 ISIDRO (acute kidney injury) N17.9 Acute hypernatremia E87.0 Peripheral neuropathy G62.9 Hypothyroidism E03.9 Seizure disorder G40.909 Severe protein-calorie malnutrition E43 Thrombocytopenia D69.6 Hypercholesteremia E78.00 Depression with anxiety F41.8 Gout M10.9 Anemia D64.9 Hypokalemia E87.6 Metabolic acidosis E87.2 Hereditary hemochromatosis E83.110 DVT prophylaxis Z29.9 (1) Sepsis Acute renal failure type: unspecified Sepsis acute organ dysfunction status: with acute organ dysfunction Sepsis type: sepsis due to unspecified organism Severe sepsis acute organ dysfunction type: acute renal failure Severe sepsis shock status: without septic shock Qualified Code(s): A41.9 - Sepsis, unspecified organism; R65.20 - Severe sepsis without septic shock; N17.9 - Acute kidney failure, unspecified (2) AMS (altered mental status) Altered mental status type: unspecified Qualified Code(s): R41.82 - Altered mental status, unspecified
[2020-09-18] MEDS: SIMVASTATIN 40 MG TAB PO SCH (20:21)
[2020-09-18] MEDS: ENOXAPARIN INJ 40 MG/0.4 ML SYR SQ SCH (22:20)
[2020-09-19] MEDS: LEVOTHYROXINE SODIUM 75 MCG TABLET PO SCH (06:19)
[2020-09-19 07:15] LABS: Hematocrit (blood only) 29.5 % (37-47); Hemoglobin 10.7 g/dL (12.0-16.0); Mean Corpuscular Hemoglobin 33.6 pg (25-34); Mean Corpuscular Hgb Conc 36.3 g/dL (32-36); Mean Corpuscular Volume 92.8 fL (80-100); RDW Coefficient of Variation 15.9 % (11.5-14.5); RDW Standard Deviation 53.4 fL (36.4-46.3); Red Blood Count 3.18 M/uL (4.2-5.4); White Blood Count 6.15 K/uL (4.8-10.8)
[2020-09-19] MEDS: ARTIFICIAL TEARS OP SCH ×4 (07:35→20:49)
[2020-09-19] MEDS: LIDOCAINE 5% 1 PATCH TD SCH (07:35)
[2020-09-19 07:42] LABS: Mean Platelet Volume 11.5 fL (7.4-10.4); Platelet Count 95 K/uL (130-400)
[2020-09-19 07:43] LABS: Basophils # (auto) 0.01 K/uL (0-0.2); Basophils % (auto) 0.2 %; Echinocytes 1+; Eosinophils # (auto) 0.03 K/uL (0-0.5); Eosinophils % (auto) 0.5 %; Immature Granulocytes # (auto) 0.01 K/uL (0.00-0.02); Immature Granulocytes % (auto) 0.2 %; Lymphocytes # (auto) 0.78 K/uL (1.2-3.4); Lymphocytes % (auto) 12.7 %; Monocytes # (auto) 0.44 K/uL (0.11-0.59); Monocytes % (auto) 7.2 %; Neutrophils # (auto) 4.88 K/uL (1.4-6.5); Neutrophils % (auto) 79.2 %; Ovalocytes 1+
[2020-09-19 08:06] LABS: Albumin Globulin Ratio 0.9 (0.9-2); Albumin Level 2.4 gm/dl (3.4-5.0); Bilirubin,Total 0.5 mg/dl (0.2-1); Calcium 7.8 mg/dl (8.5-10.1); Creatinine Clr Calc Pharmacy 62.1 ml/min; Est GFR (African American) 104.2; Est GFR (Non-African American) 89.9; Globulin 2.7 gm/dl (2.5-4.0); Magnesium 1.6 mg/dl (1.8-2.4); Potassium 2.8 mmol/L (3.5-5.1); Total Protein 5.1 gm/dl (6.4-8.2)
[2020-09-19] MEDS: DEXTROSE 5% 1,000 ML IV SCH (08:19)
[2020-09-19] MEDS: levETIRAcetam 1,000 MG in 0.9 % SODIUM CHLORIDE 100 ML IV SCH ×2 (08:20→20:48)
[2020-09-19] MEDS: CITALOPRAM 20 MG TAB PO SCH (08:23)
[2020-09-19] MEDS: allopurinoL 300 MG TAB PO SCH (08:23)
[2020-09-19] MEDS: FOLIC ACID 1 MG TAB PO SCH (08:23)
[2020-09-19] MEDS: CYANOCOBALAMIN 500 MCG TABLET (VITAMIN B-12) PO SCH (08:23)
[2020-09-19] MEDS: CALCIUM CARBONATE 1250MG TAB PO SCH ×2 (08:25→20:46)
[2020-09-19] MEDS: LACTULOSE SYRUP 20 GM/30 ML UDC PO SCH (08:26)
[2020-09-19] MEDS ORDERED: POTASSIUM CHLORIDE 40 MEQ in D5W AND NSS 1,000 ML IV SCH (09:00)
[2020-09-19] MEDS: LACOSAMIDE 200 MG in SODIUM CHLORIDE 0.9% 50 ML IV SCH ×2 (09:03→20:48)
[2020-09-19] MEDS: DONEPEZIL HCL 10 MG TAB PO SCH (09:15)
[2020-09-19] MEDS: MAGNESIUM SULFATE / D5W 1 GM/100 ML BAG IV SCH ×2 (09:39→13:46)
[2020-09-19] MEDS: POTASSIUM CHLORIDE / WTR 10 MEQ/100 ML PLCT IV SCH ×5 (09:39→15:57)
[2020-09-19] MEDS: POLYETHYLENE (MIRALAX) 17 GM PACK PO SCH (10:40)
[2020-09-19] MEDS ORDERED: SODIUM CHLORIDE 0.9% 1000ML 1,000 ML IV ONE ×2 (10:56→14:57)
--- NOTE | 2020-09-19 11:13 | Psychiatric Consultation ---
Date of Consultation September 19, 2020 Impression / Recommendations Impression Dr. Charo Toledo was directly involved in review and discussion of the patient's case and participated in medical decision making regarding treatment recommendations. RECOMMENDATIONS: 09/19 - Psychiatric consultation requested by our hospitalist service to evaluate patient for altered mental status with reported history of conversion disorder. Case reviewed with hospitalist, with reported concern that underlying psychiatric conditions may be contributing to the patient's presentation. Mirtazapine is being held due to concern for worsening sedation/AMS, but citalopram is being continued. At this point, delirium related to UTI and numerous other medical conditions seems to be the most pertinent concern to address. - Patient's current behavior appears to be more consistent with encephalopathy as opposed to conversion disorder (diagnosis documented in [facility] and neurology records). Regardless of a history of this diagnosis, it is pertinent that other causes of AMS be evaluated and ruled out before we could suggest this diagnosis is directly contributing to the patient's current presentation. - We will continue to follow the patient's case and attempt to gather collateral information regarding any mood/psychiatric symptoms prior to her cognitive decline. History from [facility] staff may be helpful (previous documentation suggests request for psychology evaluation). Collateral obtained thus far from daughter suggests she did not perceive the patient to be particularly depressed recently. - Pt does appear to be encephalopathic - medical team continuing to treat for UTI, ISIDRO, and other medical conditions. Would encourage routine mental status exams and delirium behavioral strategies outlined below. The patient has numerous risk factors for delirium, and that this time her presentation seems more likely related to delirium than to an underlying psychiatric condition. - Appreciate the opportunity to participate in the care of this patient. We will continue to follow - please reach out to our service with any additional questions or updates. Helpful Delirium Interventions - Regular review of potential physiological contributors (routine labs, medication review, ensure nutrition/hydration) - as a reminder, elements of delirium can continue for weeks or even months after the "cause" has been treated - Maintain healthy sleep/wake cycles - offer ear plugs, limit daytime napping, ample light during daytime hours, keep room dark and quiet at night - Address sensory impairments and pain - ensure access to hearing aids/glasses, active pain monitoring - Facilitate mobility and physical activity during the day - out of bed daily or as often as possible - Provide cognitive and environmental stimulation - frequent orientation to person/place/time/event, update orientation board, encourage use of familiar personal items, stable daily routine -regular MSE at various times during day - Routine education about delirium - provide education to family/snf staff - Judicious use of psychotropic medications - use of neuroleptics should be minimized only to situations in which patient is demonstrating behavior suggestive of risk of harm to self or others (agitation/aggression, not maintaining necessary IV sites, etc) Article Reference: Sathish JOHNSON, Mariely NM, Marguerite A, Neyda O, Salima CLOUD. Responding to Ten Common Delirium Misconceptions With Best Evidence: An Educational Review for Clinicians. J Neuropsychiatry Clin Neurosci. 2018;30(1):51-57. doi:[email or web address].[email or web address] Psych History Identifying Data 75-year-old female admitted medically on 09/14/20 after presenting to the ED from her residence at [facility] due to reported altered mental status. Psychiatric consultation was requested to evaluate the patient for altered mental status, history of anxiety/depression, and reported history of conversion disorder. Chief Complaint patient is non-verbal for the duration of our encounter History of Present Illness Faye Aragon is a 75-year-old female admitted medically on 09/14/20 after presenting to the ED with altered mental status. Pt presented from her residence at [facility]. Recent medical history includes COVID-19 infection in 06/2020 and patient presented to the ED with hypernatremia and now hypokalemia. Pt does seem to have a UTI and ISIDRO as well. Neurology consultation was ordered for altered mental status and recent medication changes. There was question of the possibility that psychotropic medication adjustments or history of depression/anxiety may be contributing to patient's presentation, so psychiatric consultation was also placed. Available EMR records reviewed. It does appear that the patient was switched from nortriptyline to citalopram, and mirtazapine was added in order to stimulate appetite. There is also documentation stating the patient has a diagnosis of conversion disorder. Collateral information had been obtained from the patient's daughter, who did not feel her mother was exhibiting signs of depression. Unfortunately, the patient is not able to provide history at this time as her mental status remains altered and she is non-verbal for the duration of our encounter. Case was discussed with Dr. Schmidt, and we will continue attempts to meet with the patient as her condition improves and and she is better able to participate. Past Psychiatric History Current Psychiatric Diagnosis: depression/anxiety Past Medication Trials: 1. Nortriptyline 2. Mirtazapine (started in 08/2020 for appetite stimulation) 3. Citalopram Allergies Allergy/AdvReac Type Severity Reaction Status Date / Time hydrocortisone Allergy Intermediate DELIRIUM Verified 09/04/20 08:34 phenobarbital Allergy Intermediate RASH Verified 09/14/20 15:34 lamotrigine Allergy Unknown RASH Verified 09/14/20 15:34 hydrocodone Allergy Unknown Verified 09/14/20 15:34 acetaminophen AdvReac Unknown GI SYMPTOMS Verified 09/18/20 22:22 Home Medications Medication Instructions Recorded Confirmed Type acetaminophen [Tylenol] 650 mg PO QID PRN 09/14/20 09/14/20 History allopurinol [Zyloprim] 300 mg PO DAILY 09/14/20 09/14/20 History bisacodyl [Dulcolax (bisacodyl)] 10 mg RI UD PRN 09/14/20 09/14/20 History calcium carbonate 500 mg PO BID 09/14/20 09/14/20 History carboxymethylcellulose sodium 2 drp OPHTHALMIC (EYE) QID 09/14/20 09/14/20 History [TheraTears] ceftriaxone 1 g IM DAILY 09/14/20 09/14/20 History cholecalciferol (vitamin D3) 50,000 unit PO .Q Thu09/14/20 09/14/20 History citalopram 10 mg PO DAILY 09/14/20 09/14/20 History cyanocobalamin (vitamin B-12) 500 mcg PO DAILY 09/14/20 09/14/20 History [Vitamin B-12] donepezil 10 mg PO DAILY 09/14/20 09/14/20 History folic acid 1 mg PO DAILY 09/14/20 09/14/20 History lacosamide [Vimpat] 200 mg PO BID 09/14/20 09/14/20 History lactulose 30 ml PO DAILY 09/14/20 09/14/20 History levetiracetam [Keppra] 1,000 mg PO BID 09/14/20 09/14/20 History levothyroxine 75 mcg PO DAILY 09/14/20 09/14/20 History lidocaine [Lidocaine Pain Relief] 2 patch TOPICAL AMPM 09/14/20 09/14/20 History lorazepam 0.5 mg IM Q6 PRN 09/14/20 09/14/20 History mirtazapine 15 mg PO HS 09/14/20 09/14/20 History polyethylene glycol 3350 [Miralax] 17 g PO DAILY 09/14/20 09/14/20 History promethazine 25 mg PO Q6H PRN 09/14/20 09/14/20 History simvastatin 40 mg PO QPM 09/14/20 09/14/20 History soap [Baby Shampoo] 1 ea TOPICAL UD PRN 09/14/20 09/14/20 History zonisamide 400 mg PO DAILY 09/14/20 09/14/20 History Family History Unable to obtain this information due to patient's condition. Substance Abuse History Unable to obtain this information due to patient's condition. Patient History Medical History Chronic cerebral ischemia Dementia Depression with anxiety Dizziness Generalized epilepsy Generalized osteoarthritis of multiple sites Gout Hereditary hemochromatosis Hypercholesteremia Hypothyroidism Peripheral neuropathy Family History Family/Other No pertinent past medical history Social History Smoking Status: Unknown if ever smoked Preferred Language: Urdu Communication Ability: Effective Medicine Tech Required: No Current Living Situation: Retirement Assistive Devices: None Physical Exam Psychiatric: Orientation: + not alert Pt's eyes are open and she tracks this provider's face while moving around patient's bed; however, she does not appear to be truly alert or interactive. Non-verbal at this time, so unable to determine level of orientation. Apperance: appropriately dressed and + disheveled; + inappropriately groomed Thin-appearing female, laying in bed. Pt is appropriately dressed in a hospital gown. Hair appears oily and unkempt, in general the patient appears disheveled. Eye Contact: + fair eye contact (tracks this provider as she walks around the bed) Motor Behavior: + psychomotor retardation (movements are limited and slowed) Speech: + abnormal rate/rhythm/volume of speech (patient is non-verbal for the duration of our encounter) Affect: + flat affect and + constricted affect Vital Signs (Past 24 Hours): Last Vital Signs Temp 36.8 C 09/19/20 07:34 Pulse 67 09/19/20 09:00 Resp 18 09/19/20 07:34 BP 134/80 09/19/20 07:34 Pulse Ox 99 09/19/20 07:34 Review of Systems Pt unable to participate in interview or review ROS. She is not presently able to verbalize any physical complaints. Results & Data (PSY) Medications Administered Allopurinol (Allopurinol 300 Mg Tab) 300 mg PO DAILY [facility] Stop: 10/15/20 08:59 Last Admin: 09/19/20 08:23 Dose: 300 mg Documented by: [id number] Admin: 09/18/20 08:22 Dose: Not Given Documented by: [id number] Admin: 09/17/20 07:41 Dose: 300 mg Documented by: [id number] Admin: 09/16/20 07:30 Dose: 300 mg Documented by: [id number] Admin: 09/15/20 07:34 Dose: 300 mg Documented by: [id number] Artificial Tears (Artificial Tears) 2 drops OP QID [facility] Stop: 10/14/20 20:44 Last Admin: 09/19/20 07:35 Dose: 2 drops Documented by: [id number] Admin: 09/18/20 20:26 Dose: 2 drops Documented by: [id number] Admin: 09/18/20 18:07 Dose: 2 drops Documented by: [id number] Admin: 09/18/20 13:19 Dose: 2 drops Documented by: [id number] Admin: 09/18/20 08:21 Dose: 2 drops Documented by: [id number] Admin: 09/17/20 20:03 Dose: 2 drops Documented by: [id number] Admin: 09/17/20 16:27 Dose: 2 drops Documented by: [id number] Admin: 09/17/20 12:38 Dose: 2 drops Documented by: [id number] Admin: 09/17/20 07:42 Dose: 2 drops Documented by: [id number] Admin: 09/16/20 21:00 Dose: 2 drops Documented by: [id number] Admin: 09/16/20 17:55 Dose: 2 drops Documented by: [id number] Admin: 09/16/20 12:58 Dose: 2 drops Documented by: [id number] Admin: 09/16/20 07:32 Dose: 2 drops Documented by: [id number] Admin: 09/15/20 20:14 Dose: 2 drops Documented by: [id number] Admin: 09/15/20 17:35 Dose: 2 drops Documented by: [id number] Admin: 09/15/20 13:31 Dose: 2 drops Documented by: [id number] Admin: 09/15/20 07:30 Dose: 2 drops Documented by: [id number] Admin: 09/15/20 00:45 Dose: 2 drops Documented by: [id number] Admin: 09/15/20 00:43 Dose: Not Given Documented by: [id number] Calcium Carbonate (Calcium Carbonate 1250mg Tab) 1,250 mg PO BID [facility] Stop: 10/14/20 20:59 Last Admin: 09/19/20 08:25 Dose: 1,250 mg Documented by: [id number] Admin: 09/18/20 20:20 Dose: Not Given Documented by: [id number] Admin: 09/18/20 08:22 Dose: Not Given Documented by: [id number] Admin: 09/17/20 22:01 Dose: Not Given Documented by: [id number] Admin: 09/17/20 07:41 Dose: 1,250 mg Documented by: [id number] Admin: 09/16/20 20:59 Dose: 1,250 mg Documented by: [id number] Admin: 09/16/20 07:33 Dose: 1,250 mg Documented by: [id number] Admin: 09/15/20 20:17 Dose: 1,250 mg Documented by: [id number] Admin: 09/15/20 07:33 Dose: 1,250 mg Documented by: [id number] Admin: 09/15/20 00:43 Dose: Not Given Documented by: [id number] Citalopram Hydrobromide (Citalopram 20 Mg Tab) 10 mg PO DAILY [facility] Stop: 10/15/20 08:59 Last Admin: 09/19/20 08:23 Dose: 10 mg Documented by: [id number] Admin: 09/18/20 08:21 Dose: Not Given Documented by: [id number] Admin: 09/17/20 07:41 Dose: 10 mg Documented by: [id number] Admin: 09/16/20 07:30 Dose: 10 mg Documented by: [id number] Admin: 09/15/20 07:32 Dose: 10 mg Documented by: [id number] Cyanocobalamin (Cyanocobalamin 500 Mcg Tablet (Vitamin B-12)) 500 mcg PO DAILY [facility] Stop: 10/15/20 08:59 Last Admin: 09/19/20 08:23 Dose: 500 mcg Documented by: [id number] Admin: 09/18/20 08:22 Dose: Not Given Documented by: [id number] Admin: 09/17/20 07:41 Dose: 500 mcg Documented by: [id number] Admin: 09/16/20 07:30 Dose: 500 mcg Documented by: [id number] Admin: 09/15/20 07:33 Dose: 500 mcg Documented by: [id number] Donepezil HCl (Donepezil Hcl 10 Mg Tab) 10 mg PO DAILY [facility] Stop: 10/15/20 08:59 Last Admin: 09/19/20 09:15 Dose: 10 mg Documented by: [id number] Admin: 09/18/20 08:21 Dose: Not Given Documented by: [id number] Admin: 09/17/20 07:42 Dose: 10 mg Documented by: [id number] Admin: 09/16/20 07:31 Dose: 10 mg Documented by: [id number] Admin: 09/15/20 07:33 Dose: 10 mg Documented by: [id number] Enoxaparin Sodium (Enoxaparin Inj 40 Mg/0.4 Ml Syr) 40 mg SQ Q24H [facility] Stop: 10/18/20 21:59 Last Admin: 09/18/20 22:20 Dose: 40 mg Documented by: [id number] Folic Acid (Folic Acid 1 Mg Tab) 1 mg PO DAILY [facility] Stop: 10/15/20 08:59 Last Admin: 09/19/20 08:23 Dose: 1 mg Documented by: [id number] Admin: 09/18/20 08:21 Dose: Not Given Documented by: [id number] Admin: 09/17/20 07:41 Dose: 1 mg Documented by: [id number] Admin: 09/16/20 07:31 Dose: 1 mg Documented by: [id number] Admin: 09/15/20 07:34 Dose: 1 mg Documented by: [id number] Heparin Sodium (Porcine) (Heparin 100 Unit/Ml 5ml Flush) 5 ml FLUSH PRN PRN PRN Reason: Flush Stop: 10/15/20 02:18 Last Admin: 09/17/20 16:56 Dose: 5 ml Documented by: [id number] Lacosamide 200 mg/ Sodium (Chloride) 70 mls @ 140 mls/hr IV Q12H [facility] Stop: 10/17/20 21:14 Last Infusion: 09/19/20 10:05 Dose: 0 mls/hr Documented by: [id number] Admin: 09/19/20 09:03 Dose: 70 mls/hr Documented by: [id number] Infusion: 09/18/20 22:41 Dose: 0 mls/hr Documented by: [id number] Admin: 09/18/20 20:56 Dose: 70 mls/hr Documented by: [id number] Infusion: 09/18/20 10:29 Dose: 0 mls/hr Documented by: [id number] Admin: 09/18/20 09:22 Dose: 70 mls/hr Documented by: [id number] Infusion: 09/17/20 23:35 Dose: 0 mls/hr Documented by: [id number] Admin: 09/17/20 22:03 Dose: 140 mls/hr Documented by: [id number] Levetiracetam 1,000 mg/ Sodium (Chloride) 110 mls @ 440 mls/hr IV BID [facility] Stop: 10/17/20 21:14 Last Infusion: 09/19/20 08:45 Dose: 0 mls/hr Documented by: [id number] Admin: 09/19/20 08:20 Dose: 440 mls/hr Documented by: [id number] Infusion: 09/18/20 21:33 Dose: 0 mls/hr Documented by: [id number] Infusion: 09/18/20 21:00 Dose: 0 mls/hr Documented by: [id number] Admin: 09/18/20 20:21 Dose: 440 mls/hr Documented by: [id number] Infusion: 09/18/20 08:39 Dose: 0 mls/hr Documented by: [id number] Admin: 09/18/20 08:23 Dose: 440 mls/hr Documented by: [id number] Infusion: 09/17/20 23:30 Dose: 0 mls/hr Documented by: [id number] Admin: 09/17/20 22:58 Dose: 440 mls/hr Documented by: [id number] Ceftriaxone Sodium 1,000 mg/ (Dextrose) 50 mls @ 100 mls/hr IV Q24H [facility]; Pr otocol Stop: 09/28/20 08:59 Last Infusion: 09/18/20 10:29 Dose: 0 mls/hr Documented by: [id number] Admin: 09/18/20 09:49 Dose: 100 mls/hr Documented by: [id number] Magnesium Sulfate/Dextrose (Magnesium Sulfate / D5w) 1 gm in 100 mls @ 50 mls/hr IV Q2H [facility] Stop: 09/19/20 12:44 Last Admin: 09/19/20 09:39 Dose: 50 mls/hr Documented by: [id number] Potassium Chloride (K Tushar / Wtr) 10 meq in 100 mls @ 100 mls/hr IV Q1H [facility] Stop: 09/19/20 12:44 Last Admin: 09/19/20 10:40 Dose: 100 mls/hr Documented by: [id number] Infusion: 09/19/20 10:39 Dose: 100 mls/hr Documented by: [id number] Admin: 09/19/20 09:39 Dose: 100 mls/hr Documented by: [id number] Potassium Chloride 40 meq/ (Dextrose/Sodium Chloride) 1,020 mls @ 70 mls/hr IV .[id number] [facility] Stop: 09/19/20 23:34 Last Admin: 09/19/20 09:37 Dose: 70 mls/hr Documented by: [id number] Lacosamide (Lacosamide 50 Mg Tablet) 200 mg PO BID [facility] Stop: 10/14/20 20:59 Last Admin: 09/17/20 08:00 Dose: 200 mg Documented by: [id number] Admin: 09/16/20 20:58 Dose: 200 mg Documented by: [id number] Admin: 09/16/20 08:12 Dose: 200 mg Documented by: [id number] Admin: 09/15/20 20:27 Dose: 200 mg Documented by: [id number] Admin: 09/15/20 10:24 Dose: 200 mg Documented by: [id number] Admin: 09/15/20 00:25 Dose: Not Given Documented by: [id number] Lactulose (Lactulose Syrup 20 Gm/30 Ml Udc) 20 gm PO DAILY [facility] Stop: 10/15/20 08:59 Last Admin: 09/19/20 08:26 Dose: 20 gm Documented by: [id number] Admin: 09/18/20 08:21 Dose: Not Given Documented by: [id number] Admin: 09/17/20 07:41 Dose: 20 gm Documented by: [id number] Admin: 09/16/20 07:32 Dose: 20 gm Documented by: [id number] Admin: 09/15/20 07:34 Dose: 20 gm Documented by: [id number] Levetiracetam (Levetiracetam 500 Mg Tab) 1,000 mg PO BID [facility] Stop: 10/14/20 20:59 Last Admin: 09/17/20 07:42 Dose: 1,000 mg Documented by: [id number] Admin: 09/16/20 20:58 Dose: 1,000 mg Documented by: [id number] Admin: 09/16/20 07:31 Dose: 1,000 mg Documented by: [id number] Admin: 09/15/20 20:16 Dose: 1,000 mg Documented by: [id number] Admin: 09/15/20 07:32 Dose: 1,000 mg Documented by: [id number] Admin: 09/15/20 00:43 Dose: Not Given Documented by: [id number] Levothyroxine Sodium (Levothyroxine Sodium 75 Mcg Tablet) 75 mcg PO DAILYBB [facility] Stop: 10/15/20 06:29 Last Admin: 09/19/20 06:19 Dose: Not Given Documented by: [id number] Admin: 09/18/20 08:21 Dose: Not Given Documented by: [id number] Admin: 09/17/20 06:53 Dose: Not Given Documented by: [id number] Admin: 09/16/20 06:05 Dose: 75 mcg Documented by: [id number] Admin: 09/15/20 05:38 Dose: Not Given Documented by: [id number] Lidocaine (Lidocaine 5% 1 Patch) 2 patch TD QAM [facility] Stop: 10/15/20 08:59 Last Admin: 09/19/20 07:35 Dose: 2 patch Documented by: [id number] Admin: 09/18/20 08:22 Dose: 2 patch Documented by: [id number] Admin: 09/17/20 07:40 Dose: 2 patch Documented by: [id number] Admin: 09/16/20 07:32 Dose: 2 patch Documented by: [id number] Admin: 09/15/20 07:30 Dose: 2 patch Documented by: [id number] Mirtazapine (Mirtazapine Tab 15 Mg Tab) 15 mg PO HS [facility] Stop: 10/14/20 20:59 Last Admin: 09/17/20 22:02 Dose: Not Given Documented by: [id number] Admin: 09/16/20 20:59 Dose: 15 mg Documented by: [id number] Admin: 09/15/20 20:18 Dose: 15 mg Documented by: [id number] Admin: 09/15/20 00:24 Dose: Not Given Documented by: [id number] Miscellaneous (Zonisamide: Order Awaiting Action) 1 ea N/A QS [facility] Stop: 10/15/20 07:59 Last Admin: 09/19/20 07:34 Dose: Not Given Documented by: [id number] Admin: 09/19/20 00:20 Dose: Not Given Documented by: [id number] Admin: 09/18/20 15:39 Dose: Not Given Documented by: [id number] Admin: 09/18/20 07:06 Dose: Not Given Documented by: [id number] Admin: 09/18/20 07:06 Dose: Not Given Documented by: [id number] Admin: 09/17/20 15:32 Dose: Not Given Documented by: [id number] Admin: 09/17/20 08:44 Dose: Not Given Documented by: [id number] Admin: 09/17/20 07:42 Dose: Not Given Documented by: [id number] Admin: 09/16/20 15:14 Dose: Not Given Documented by: [id number] Admin: 09/16/20 07:32 Dose: Not Given Documented by: [id number] Admin: 09/16/20 00:54 Dose: Not Given Documented by: [id number] Admin: 09/15/20 15:24 Dose: Not Given Documented by: [id number] Admin: 09/15/20 07:35 Dose: Not Given Documented by: [id number] Miscellaneous (Remove Lidoderm Patch) 1 ea N/A DAILY@2100 [facility] Stop: 10/14/20 20:59 Last Admin: 09/18/20 20:22 Dose: 1 ea Documented by: [id number] Admin: 09/17/20 22:02 Dose: 1 ea Documented by: [id number] Admin: 09/16/20 21:00 Dose: 1 ea Documented by: [id number] Admin: 09/15/20 20:19 Dose: 1 ea Documented by: [id number] Admin: 09/15/20 00:44 Dose: 1 ea Documented by: [id number] Polyethylene Glycol (Polyethylene (Miralax) 17 Gm Pack) 17 gm PO DAILY [facility] Stop: 10/15/20 08:59 Last Admin: 09/19/20 10:40 Dose: Not Given Documented by: [id number] Admin: 09/18/20 08:22 Dose: Not Given Documented by: [id number] Admin: 09/17/20 07:41 Dose: 17 gm Documented by: [id number] Admin: 09/16/20 07:32 Dose: 17 gm Documented by: [id number] Admin: 09/15/20 07:31 Dose: 17 gm Documented by: [id number] Simvastatin (Simvastatin 40 Mg Tab) 40 mg PO QPM [facility] Stop: 10/14/20 20:59 Last Admin: 09/18/20 20:21 Dose: Not Given Documented by: [id number] Admin: 09/17/20 22:03 Dose: Not Given Documented by: [id number] Admin: 09/16/20 21:00 Dose: 40 mg Documented by: [id number] Admin: 09/15/20 20:30 Dose: 40 mg Documented by: [id number] Admin: 09/15/20 00:45 Dose: Not Given Documented by: [id number] Coding Level of Care Code 88299 U Intl Hosp Care Lvl 1
[2020-09-19 11:26] LABS: HCO3 ABG 15 mmol/L (19-24); PCO2 ABG 20 mmHg (35-46); PO2 ABG 130 mmHg (80-95); pH ABG 7.48 (7.35-7.45)
[2020-09-19 11:27] LABS: Allen Test POS (Pos)
--- NOTE | 2020-09-19 11:37 | Hospitalist Progress Note ---
Date of Service September 19, 2020 Assessment & Plan (1) AMS (altered mental status): Appears to have had a decline since since June possibly due to Covid delirium versus morphine use (unclear reason for morphine given at SNF per daughter) versus multiple recent changes to medications, including citalopram/mirtazapine versus seizures versus progressive dementia (appears very fast decline per daughter for this) versus worsening depression with psychosis. More acute decline explained by hypernatremia and current UTI, however both these are being corrected and does not seem to have much improvement Refusing meds and not to help explore eating this morning B12, folate WNL, Lyme neg MRI brain 2017 normal Appreciate Neuro consult: question seizure activity vs conversion/psych issues, combo of UTI/ISIDRO and uremia, hypernatremia/lyte abnormalities in the setting of infection in the setting of poor baseline mental status/possible dementia and recommends: -MRI Brain-trying to get Vagus Nerve stimulator turned off through [facility] [place] . They need her op report from [place]-requested this - continue to treat infection and electrolyte abnormalities - delirium precautions, lights on during day/off at night, frequent re- orientation, positive reminders of her boyfriend at the nursing facility - continue keppra 1g bid and vimpat 200mg bid; would try to have intermediate bring in zonegran 400mg qhs to administer if she will take PO again - will obtain routine EEG, if no seizures noted, will decrease vimpat to 100mg bid - would consider getting psych involved given concern from nursing facility staff that she may have more behavioral issues related to not taking PO (may need adjustment of celexa) - if events c/f seizures noted, would consider transfer to higher level of care for cEEG for spell classification/rule out NCSE -Will consult Psych as well to help explore any potential depression with psychosis (2) Sepsis: Ruled out. Does have a UTI but I do not believe this caused her to have sepsis Lactate 2.5, repeat 1.9 after iVFs IV fluid resuscitation with NSS 2L bolus on admission (3) Acute UTI (urinary tract infection): Received cefepime on admission, then changed to keflex given cx results from 09/13 show Ecoli with sensitivity to cephalosporins However, today she is not taking po meds-refusing Convert back to IV Ceftriaxone until taking p.o. or completes a 7-day course (4) ISIDRO (acute kidney injury): Secondary to Lasix use with reduced oral intake. Creatinine is now improved to 0.64 after receiving IV fluids and holding Lasix Monitor with BMP in a.m. (5) Acute hypernatremia: Secondary to free water deficit due to poor oral intake Sodium 152 for several days after admission and now improved to 141 Continue D5W at 100 mL's per hour Follow BMP (6) Peripheral neuropathy: Noted in history (7) Hypothyroidism: TSH WNL here at 1.96 Continue levothyroxine 75 mcg p.o. daily (8) Seizure disorder: Epilepsy/PNES Per last neurology note. Continue Zonegran 400 mg nightly if can be brought in from nursing facility -Continue Vimpat 200 mg twice daily, Keppra 1000 mg twice daily, both of which have been converted to IV while she is refusing p.o. meds. No definite seizure activity noted here Has had epilepsy since childhood Appreciate neurology input Obtain EEG (9) Severe protein-calorie malnutrition: Reg diet (10) Thrombocytopenia: Platelets were down to 87 and now back up to 97 Appreciate hematology consultation Possibly secondary to early sepsis, stress, or drug (antibiotics) as per hematology Improving, follow CBC (11) Hypercholesteremia: Continue simvastatin (12) Depression with anxiety: With a long history of such Was just placed on citalopram and mirtazapine 2 weeks ago by neurology -We will hold mirtazapine in case contributing to worsening mental status Continue citalopram for now Consult psychiatry (13) Gout: No acute issues Continue home allopurinol (14) Anemia: Hemoglobin low at 10.9, normocytic B12 and folate levels here are normal Iron studies consistent with iron overload with transferrin saturation of 101%, consistent with known hereditary hemochromatosis Check Hemoccult stool Could be from previous phlebotomy? Unclear when last phlebotomy was (15) Hypokalemia: Potassium severely low today at 2.4 She typically is on Lasix with potassium both of which have been on hold Is refusing p.o. Give potassium chloride 60 mEq IV today Follow BMP and magnesium level in the morning (16) Metabolic acidosis: Serum bicarbonate today is 20, anion gap is only 9 Unclear cause, she did have loose stool today and is on lactulose, could be GI losses Follow BMP in the morning (17) Hereditary hemochromatosis: Transferrin saturation elevated at 101% Seen by heme, no acute needs at this time regarding phlebotomy (18) DVT prophylaxis: We will add on Lovenox Disposition-continued stay on medical floor with telemetry PT/OT ordered but not completed yet due to altered mental status Admission and Anticipated Discharge Date Admission Date: September 14, 2020 Physical Exam Constitutional: WD/WN, vitals as above Eyes: + anicteric sclerae Neck: trachea midline, no thyromegaly Respiratory: normal respiratory effort, lungs clear to auscultation Cardiovascular: RRR, no murmur, no edema Chest (Breasts): Chest: normal inspection of chest Gastrointestinal (Abdomen): normal bowel sounds, soft, nontender, no hepatosplenomegaly Musculoskeletal: Extremities: extremities normal to inspection; no cyanosis and no clubbing Skin: no rashes, warm and dry Neurologic: moves all extremities and awake; no focal motor deficits Psychiatric: Orientation: alert, oriented to person and cooperative; + not oriented to place and + not oriented to time Eye Contact: + poor eye contact Affect: + flat affect Thought Process: + looseness of associations and + incoherent thought process Lymphatic: no lymphedema Results & Data Results & Data ([facility]) Vital Signs (Past 12 Hours) Vital Signs Temp Pulse Pulse Resp BP BP Pulse Ox 09/19/20 11:22 36.7 C 68 20 126/73 100 09/19/20 09:00 67 09/19/20 07:34 36.8 C 68 18 134/80 99 09/19/20 04:00 32.7 C L 84 20 131/81 97 09/19/20 00:32 92 H PG Care Time/CCT Total # of Minutes Spent Total Time Spent with Patient: Total time spent is greater than 50% in coordination of care (as documented) at patient's floor/unit and/or counseling patient: Coding Diagnoses AMS (altered mental status) R41.82 Altered mental status type: unspecified Sepsis A41.9; R65.20; N17.9 Acute renal failure type: unspecified Sepsis acute organ dysfunction status: with acute organ dysfunction Sepsis type: sepsis due to unspecified organism Severe sepsis acute organ dysfunction type: acute renal failure Severe sepsis shock status: without septic shock Acute UTI (urinary tract infection) N39.0 ISIDRO (acute kidney injury) N17.9 Acute hypernatremia E87.0 Peripheral neuropathy G62.9 Hypothyroidism E03.9 Seizure disorder G40.909 Severe protein-calorie malnutrition E43 Thrombocytopenia D69.6 Hypercholesteremia E78.00 Depression with anxiety F41.8 Gout M10.9 Anemia D64.9 Hypokalemia E87.6 Metabolic acidosis E87.2 Hereditary hemochromatosis E83.110 DVT prophylaxis Z29.9 (1) AMS (altered mental status) Altered mental status type: unspecified Qualified Code(s): R41.82 - Altered mental status, unspecified (2) Sepsis Acute renal failure type: unspecified Sepsis acute organ dysfunction status: with acute organ dysfunction Sepsis type: sepsis due to unspecified organism Severe sepsis acute organ dysfunction type: acute renal failure Severe sepsis shock status: without septic shock Qualified Code(s): A41.9 - Sepsis, unspecified organism; R65.20 - Severe sepsis without septic shock; N17.9 - Acute kidney failure, unspecified
[2020-09-19] MEDS ORDERED: IOVERSOL 100ml IV ONE (12:07)
--- NOTE | 2020-09-19 12:28 | CT Scan Report ---
CT OF THE HEAD WITHOUT CONTRAST CLINICAL HISTORY: Altered mental status. COMPARISON STUDY: Head CTs March 31, 2020 and September 14, 2020. TECHNIQUE: Helical axial images of the head were obtained without IV contrast. Automated exposure con trol was utilized for the study. A dose lowering technique was utilized adhering to the principles o f ALARA. FINDINGS: This exam is moderately compromised by motion artifact. No acute intracranial hemorrhage, m idline shift or mass effect is present. Ventricular system is normal. Basilar cisterns are patent. Th ere are no extra-axial collections. White matter hypodensities favor small vessel disease. There are no findings to suggest acute dural sinus thrombosis or acute territorial infarct. No significant calv arial abnormalities are present. IMPRESSION: Exam moderately compromised by motion artifact. No acute intracranial findings identifie d. ACT 112: Negative or not required by law. Electronically signed by: Brandt Bhatt M.D. 09/19/2020 12:26 PM
--- NOTE | 2020-09-19 12:31 | CT Scan Report ---
CT abd pelvis IV con only CLINICAL HISTORY: lactic acidosis,r/o bowel ischemia COMPARISON STUDY: Noncontrast study dated 09/14/2020 TECHNIQUE: The patient was scanned in a dynamic helical fashion during intravenous administration of 94 cc of Optiray 320 A dose lowering technique was utilized adhering to the principles of ALARA. CT DOSE: 1661.90 mGy.cm FINDINGS: Lower chest: There is respiratory motion artifact. There is dependent atelectasis. There are dependen t calcific densities. There is no lobar consolidation. Liver: The contrast-enhanced liver is normal in size, contour, and attenuation. There is no intrahepa tic biliary ductal dilatation. The hepatic veins and portal veins are patent. Gallbladder: Not visualized presumed surgically absent Spleen: Normal in size and attenuation. Pancreas: Unremarkable. Adrenal glands: Unremarkable. Kidneys: There are multiple right renal hypodensities, not optimally evaluated due to motion artifact , but likely representing cysts. Given the significant motion artifact, it is difficult to exclude ri ght renal pyelonephritis.. There is no hydronephrosis. Bowel: There are no transition zones indicate bowel obstruction. There is no evidence of acute divert iculitis. There is mild colonic wall thickening involving the transverse and ascending colon consiste nt with a nonspecific colitis. Peritoneum: There is no intraperitoneal free air or abdominal ascites. Vasculature: The abdominal aorta is normal in course and caliber. Adenopathy: None. Pelvic viscera: The bladder, and pelvic viscera are unremarkable. Skeletal structures: There is redemonstration of an L1 compression fracture. IMPRESSION: 1. Motion compromised study 2. No evidence of bowel obstruction. No evidence of free air 3. Mild colonic wall thickening involving the ascending and transverse colon consistent with a nonspe cific colitis. ACT 112: Negative or not required by law. Electronically signed by: Anthony Owens M.D. 09/19/2020 12:29 PM
[2020-09-19] MEDS: cefTRIAXone SODIUM 1,000 MG in DEXTROSE 5% 50 ML IV SCH (12:42)
[2020-09-19] MEDS ORDERED: PIPERACILL/TAZOBAC CONSULT ACTIVE PRN (13:06)
[2020-09-19] MEDS ORDERED: PIPERACILLIN/TAZOBACTAM 3.375 GM in DEXTROSE 5% 100 ML IV ONE (13:30)
[2020-09-19 14:38] LABS: BUN Creatinine Ratio 12.3 (10-20); Calcium 7.6 mg/dl (8.5-10.1); Creatinine Clr Calc Pharmacy 68.9 ml/min; Est GFR (African American) 107.8; Est GFR (Non-African American) 93.1; Potassium 3.5 mmol/L (3.5-5.1)
[2020-09-19] MEDS ORDERED: THIAMINE HCL 200 MG in SODIUM CHLORIDE 0.9% 50 ML IV SCH (15:00)
[2020-09-19] MEDS: LACOSAMIDE 50 MG TABLET PO SCH (15:10)
[2020-09-19] MEDS: levETIRAcetam 500 MG TAB PO SCH (15:10)
--- NOTE | 2020-09-19 15:37 | Electroencephalogram ---
EEG Procedure Note Date of Service September 19, 2020 Start / End Times Start Time: 5:55am End Time: 6:15am Referring Physician isabel carrillo History AMS, h/o seizures Home Medication List Medication Instructions Recorded Confirmed Type acetaminophen [Tylenol] 650 mg PO QID PRN 09/14/20 09/14/20 History allopurinol [Zyloprim] 300 mg PO DAILY 09/14/20 09/14/20 History bisacodyl [Dulcolax (bisacodyl)] 10 mg MT UD PRN 09/14/20 09/14/20 History calcium carbonate 500 mg PO BID 09/14/20 09/14/20 History carboxymethylcellulose sodium 2 drp OPHTHALMIC (EYE) QID 09/14/20 09/14/20 History [TheraTears] ceftriaxone 1 g IM DAILY 09/14/20 09/14/20 History cholecalciferol (vitamin D3) 50,000 unit PO .Q FRI 09/14/20 09/14/20 History citalopram 10 mg PO DAILY 09/14/20 09/14/20 History cyanocobalamin (vitamin B-12) 500 mcg PO DAILY 09/14/20 09/14/20 History [Vitamin B-12] donepezil 10 mg PO DAILY 09/14/20 09/14/20 History folic acid 1 mg PO DAILY 09/14/20 09/14/20 History lacosamide [Vimpat] 200 mg PO BID 09/14/20 09/14/20 History lactulose 30 ml PO DAILY 09/14/20 09/14/20 History levetiracetam [Keppra] 1,000 mg PO BID 09/14/20 09/14/20 History levothyroxine 75 mcg PO DAILY 09/14/20 09/14/20 History lidocaine [Lidocaine Pain Relief] 2 patch TOPICAL AMPM 09/14/20 09/14/20 History lorazepam 0.5 mg IM Q6 PRN 09/14/20 09/14/20 History mirtazapine 15 mg PO HS 09/14/20 09/14/20 History polyethylene glycol 3350 [Miralax] 17 g PO DAILY 09/14/20 09/14/20 History promethazine 25 mg PO Q6H PRN 09/14/20 09/14/20 History simvastatin 40 mg PO QPM 09/14/20 09/14/20 History soap [Baby Shampoo] 1 ea TOPICAL UD PRN 09/14/20 09/14/20 History zonisamide 400 mg PO DAILY 09/14/20 09/14/20 History Inpatient Medication List Allopurinol (Allopurinol 300 Mg Tab) 300 mg PO DAILY [facility] Stop: 10/15/20 08:59 Last Admin: 09/19/20 08:23 Dose: 300 mg Documented by: [id number] Admin: 09/18/20 08:22 Dose: Not Given Documented by: [id number] Admin: 09/17/20 07:41 Dose: 300 mg Documented by: [id number] Admin: 09/16/20 07:30 Dose: 300 mg Documented by: [id number] Admin: 09/15/20 07:34 Dose: 300 mg Documented by: [id number] Artificial Tears (Artificial Tears) 2 drops OP QID [facility] Stop: 10/14/20 20:44 Last Admin: 09/19/20 13:44 Dose: 2 drops Documented by: [id number] Admin: 09/19/20 07:35 Dose: 2 drops Documented by: [id number] Admin: 09/18/20 20:26 Dose: 2 drops Documented by: [id number] Admin: 09/18/20 18:07 Dose: 2 drops Documented by: [id number] Admin: 09/18/20 13:19 Dose: 2 drops Documented by: [id number] Admin: 09/18/20 08:21 Dose: 2 drops Documented by: [id number] Admin: 09/17/20 20:03 Dose: 2 drops Documented by: [id number] Admin: 09/17/20 16:27 Dose: 2 drops Documented by: [id number] Admin: 09/17/20 12:38 Dose: 2 drops Documented by: [id number] Admin: 09/17/20 07:42 Dose: 2 drops Documented by: [id number] Admin: 09/16/20 21:00 Dose: 2 drops Documented by: [id number] Admin: 09/16/20 17:55 Dose: 2 drops Documented by: [id number] Admin: 09/16/20 12:58 Dose: 2 drops Documented by: [id number] Admin: 09/16/20 07:32 Dose: 2 drops Documented by: [id number] Admin: 09/15/20 20:14 Dose: 2 drops Documented by: [id number] Admin: 09/15/20 17:35 Dose: 2 drops Documented by: [id number] Admin: 09/15/20 13:31 Dose: 2 drops Documented by: [id number] Admin: 09/15/20 07:30 Dose: 2 drops Documented by: [id number] Admin: 09/15/20 00:45 Dose: 2 drops Documented by: [id number] Admin: 09/15/20 00:43 Dose: Not Given Documented by: [id number] Calcium Carbonate (Calcium Carbonate 1250mg Tab) 1,250 mg PO BID [facility] Stop: 10/14/20 20:59 Last Admin: 09/19/20 08:25 Dose: 1,250 mg Documented by: [id number] Admin: 09/18/20 20:20 Dose: Not Given Documented by: [id number] Admin: 09/18/20 08:22 Dose: Not Given Documented by: [id number] Admin: 09/17/20 22:01 Dose: Not Given Documented by: [id number] Admin: 09/17/20 07:41 Dose: 1,250 mg Documented by: [id number] Admin: 09/16/20 20:59 Dose: 1,250 mg Documented by: [id number] Admin: 09/16/20 07:33 Dose: 1,250 mg Documented by: [id number] Admin: 09/15/20 20:17 Dose: 1,250 mg Documented by: [id number] Admin: 09/15/20 07:33 Dose: 1,250 mg Documented by: [id number] Admin: 09/15/20 00:43 Dose: Not Given Documented by: [id number] Citalopram Hydrobromide (Citalopram 20 Mg Tab) 10 mg PO DAILY [facility] Stop: 10/15/20 08:59 Last Admin: 09/19/20 08:23 Dose: 10 mg Documented by: [id number] Admin: 09/18/20 08:21 Dose: Not Given Documented by: [id number] Admin: 09/17/20 07:41 Dose: 10 mg Documented by: [id number] Admin: 09/16/20 07:30 Dose: 10 mg Documented by: [id number] Admin: 09/15/20 07:32 Dose: 10 mg Documented by: [id number] Cyanocobalamin (Cyanocobalamin 500 Mcg Tablet (Vitamin B-12)) 500 mcg PO DAILY [facility] Stop: 10/15/20 08:59 Last Admin: 09/19/20 08:23 Dose: 500 mcg Documented by: [id number] Admin: 09/18/20 08:22 Dose: Not Given Documented by: [id number] Admin: 09/17/20 07:41 Dose: 500 mcg Documented by: [id number] Admin: 09/16/20 07:30 Dose: 500 mcg Documented by: [id number] Admin: 09/15/20 07:33 Dose: 500 mcg Documented by: [id number] Donepezil HCl (Donepezil Hcl 10 Mg Tab) 10 mg PO DAILY [facility] Stop: 10/15/20 08:59 Last Admin: 09/19/20 09:15 Dose: 10 mg Documented by: [id number] Admin: 09/18/20 08:21 Dose: Not Given Documented by: [id number] Admin: 09/17/20 07:42 Dose: 10 mg Documented by: [id number] Admin: 09/16/20 07:31 Dose: 10 mg Documented by: [id number] Admin: 09/15/20 07:33 Dose: 10 mg Documented by: [id number] Enoxaparin Sodium (Enoxaparin Inj 40 Mg/0.4 Ml Syr) 40 mg SQ Q24H [facility] Stop: 10/18/20 21:59 Last Admin: 09/18/20 22:20 Dose: 40 mg Documented by: [id number] Folic Acid (Folic Acid 1 Mg Tab) 1 mg PO DAILY [facility] Stop: 10/15/20 08:59 Last Admin: 09/19/20 08:23 Dose: 1 mg Documented by: [id number] Admin: 09/18/20 08:21 Dose: Not Given Documented by: [id number] Admin: 09/17/20 07:41 Dose: 1 mg Documented by: [id number] Admin: 09/16/20 07:31 Dose: 1 mg Documented by: [id number] Admin: 09/15/20 07:34 Dose: 1 mg Documented by: [id number] Heparin Sodium (Porcine) (Heparin 100 Unit/Ml 5ml Flush) 5 ml FLUSH PRN PRN PRN Reason: Flush Stop: 10/15/20 02:18 Last Admin: 09/17/20 16:56 Dose: 5 ml Documented by: [id number] Lacosamide 200 mg/ Sodium (Chloride) 70 mls @ 140 mls/hr IV Q12H [facility] Stop: 10/17/20 21:14 Last Infusion: 09/19/20 10:05 Dose: 0 mls/hr Documented by: [id number] Admin: 09/19/20 09:03 Dose: 70 mls/hr Documented by: [id number] Infusion: 09/18/20 22:41 Dose: 0 mls/hr Documented by: [id number] Admin: 09/18/20 20:56 Dose: 70 mls/hr Documented by: [id number] Infusion: 09/18/20 10:29 Dose: 0 mls/hr Documented by: [id number] Admin: 09/18/20 09:22 Dose: 70 mls/hr Documented by: [id number] Infusion: 09/17/20 23:35 Dose: 0 mls/hr Documented by: [id number] Admin: 09/17/20 22:03 Dose: 140 mls/hr Documented by: [id number] Levetiracetam 1,000 mg/ Sodium (Chloride) 110 mls @ 440 mls/hr IV BID [facility] Stop: 10/17/20 21:14 Last Infusion: 09/19/20 08:45 Dose: 0 mls/hr Documented by: [id number] Admin: 09/19/20 08:20 Dose: 440 mls/hr Documented by: [id number] Infusion: 09/18/20 21:33 Dose: 0 mls/hr Documented by: [id number] Infusion: 09/18/20 21:00 Dose: 0 mls/hr Documented by: [id number] Admin: 09/18/20 20:21 Dose: 440 mls/hr Documented by: [id number] Infusion: 09/18/20 08:39 Dose: 0 mls/hr Documented by: [id number] Admin: 09/18/20 08:23 Dose: 440 mls/hr Documented by: [id number] Infusion: 09/17/20 23:30 Dose: 0 mls/hr Documented by: [id number] Admin: 09/17/20 22:58 Dose: 440 mls/hr Documented by: [id number] Potassium Chloride 40 meq/ (Dextrose/Sodium Chloride) 1,020 mls @ 70 mls/hr IV .[id number] [facility] Last Admin: 09/19/20 09:37 Dose: 70 mls/hr Documented by: [id number] Lacosamide (Lacosamide 50 Mg Tablet) 200 mg PO BID [facility] Stop: 10/14/20 20:59 Last Admin: 09/19/20 15:10 Dose: Not Given Documented by: [id number] Admin: 09/17/20 08:00 Dose: 200 mg Documented by: [id number] Admin: 09/16/20 20:58 Dose: 200 mg Documented by: [id number] Admin: 09/16/20 08:12 Dose: 200 mg Documented by: [id number] Admin: 09/15/20 20:27 Dose: 200 mg Documented by: [id number] Admin: 09/15/20 10:24 Dose: 200 mg Documented by: [id number] Admin: 09/15/20 00:25 Dose: Not Given Documented by: [id number] Lactulose (Lactulose Syrup 20 Gm/30 Ml Udc) 20 gm PO DAILY [facility] Stop: 10/15/20 08:59 Last Admin: 09/19/20 08:26 Dose: 20 gm Documented by: [id number] Admin: 09/18/20 08:21 Dose: Not Given Documented by: [id number] Admin: 09/17/20 07:41 Dose: 20 gm Documented by: [id number] Admin: 09/16/20 07:32 Dose: 20 gm Documented by: [id number] Admin: 09/15/20 07:34 Dose: 20 gm Documented by: [id number] Levetiracetam (Levetiracetam 500 Mg Tab) 1,000 mg PO BID [facility] Stop: 10/14/20 20:59 Last Admin: 09/19/20 15:10 Dose: Not Given Documented by: [id number] Admin: 09/17/20 07:42 Dose: 1,000 mg Documented by: [id number] Admin: 09/16/20 20:58 Dose: 1,000 mg Documented by: [id number] Admin: 09/16/20 07:31 Dose: 1,000 mg Documented by: [id number] Admin: 09/15/20 20:16 Dose: 1,000 mg Documented by: [id number] Admin: 09/15/20 07:32 Dose: 1,000 mg Documented by: [id number] Admin: 09/15/20 00:43 Dose: Not Given Documented by: [id number] Levothyroxine Sodium (Levothyroxine Sodium 75 Mcg Tablet) 75 mcg PO DAILYBB [facility] Stop: 10/15/20 06:29 Last Admin: 09/19/20 06:19 Dose: Not Given Documented by: [id number] Admin: 09/18/20 08:21 Dose: Not Given Documented by: [id number] Admin: 09/17/20 06:53 Dose: Not Given Documented by: [id number] Admin: 09/16/20 06:05 Dose: 75 mcg Documented by: [id number] Admin: 09/15/20 05:38 Dose: Not Given Documented by: [id number] Lidocaine (Lidocaine 5% 1 Patch) 2 patch TD QAM [facility] Stop: 10/15/20 08:59 Last Admin: 09/19/20 07:35 Dose: 2 patch Documented by: [id number] Admin: 09/18/20 08:22 Dose: 2 patch Documented by: [id number] Admin: 09/17/20 07:40 Dose: 2 patch Documented by: [id number] Admin: 09/16/20 07:32 Dose: 2 patch Documented by: [id number] Admin: 09/15/20 07:30 Dose: 2 patch Documented by: [id number] Mirtazapine (Mirtazapine Tab 15 Mg Tab) 15 mg PO HS [facility] Stop: 10/14/20 20:59 Last Admin: 09/17/20 22:02 Dose: Not Given Documented by: [id number] Admin: 09/16/20 20:59 Dose: 15 mg Documented by: [id number] Admin: 09/15/20 20:18 Dose: 15 mg Documented by: [id number] Admin: 09/15/20 00:24 Dose: Not Given Documented by: [id number] Miscellaneous (Zonisamide: Order Awaiting Action) 1 ea N/A QS [facility] Stop: 10/15/20 07:59 Last Admin: 09/19/20 07:34 Dose: Not Given Documented by: [id number] Admin: 09/19/20 00:20 Dose: Not Given Documented by: [id number] Admin: 09/18/20 15:39 Dose: Not Given Documented by: [id number] Admin: 09/18/20 07:06 Dose: Not Given Documented by: [id number] Admin: 09/18/20 07:06 Dose: Not Given Documented by: [id number] Admin: 09/17/20 15:32 Dose: Not Given Documented by: [id number] Admin: 09/17/20 08:44 Dose: Not Given Documented by: [id number] Admin: 09/17/20 07:42 Dose: Not Given Documented by: [id number] Admin: 09/16/20 15:14 Dose: Not Given Documented by: [id number] Admin: 09/16/20 07:32 Dose: Not Given Documented by: [id number] Admin: 09/16/20 00:54 Dose: Not Given Documented by: [id number] Admin: 09/15/20 15:24 Dose: Not Given Documented by: [id number] Admin: 09/15/20 07:35 Dose: Not Given Documented by: [id number] Miscellaneous (Remove Lidoderm Patch) 1 ea N/A DAILY@2100 [facility] Stop: 10/14/20 20:59 Last Admin: 09/18/20 20:22 Dose: 1 ea Documented by: [id number] Admin: 09/17/20 22:02 Dose: 1 ea Documented by: [id number] Admin: 09/16/20 21:00 Dose: 1 ea Documented by: [id number] Admin: 09/15/20 20:19 Dose: 1 ea Documented by: [id number] Admin: 09/15/20 00:44 Dose: 1 ea Documented by: [id number] Polyethylene Glycol (Polyethylene (Miralax) 17 Gm Pack) 17 gm PO DAILY [facility] Stop: 10/15/20 08:59 Last Admin: 09/19/20 10:40 Dose: Not Given Documented by: [id number] Admin: 09/18/20 08:22 Dose: Not Given Documented by: [id number] Admin: 09/17/20 07:41 Dose: 17 gm Documented by: [id number] Admin: 09/16/20 07:32 Dose: 17 gm Documented by: [id number] Admin: 09/15/20 07:31 Dose: 17 gm Documented by: [id number] Simvastatin (Simvastatin 40 Mg Tab) 40 mg PO QPM [facility] Stop: 10/14/20 20:59 Last Admin: 09/18/20 20:21 Dose: Not Given Documented by: [id number] Admin: 09/17/20 22:03 Dose: Not Given Documented by: [id number] Admin: 09/16/20 21:00 Dose: 40 mg Documented by: [id number] Admin: 09/15/20 20:30 Dose: 40 mg Documented by: [id number] Admin: 09/15/20 00:45 Dose: Not Given Documented by: [id number] Discontinued Medications Cefepime HCl (Cefepime 2,000 Mg/20 Ml Vial) Confirm Administered Dose 2,000 mg .ROUTE .STK-MED ONE Stop: 09/14/20 16:24 Last Admin: 09/14/20 16:34 Dose: Not Given Documented by: [id number] Cephalexin HCl (Cephalexin 500 Mg Cap) 500 mg PO Q12 [facility]; Protocol Stop: 09/25/20 10:59 Last Admin: 09/18/20 08:21 Dose: Not Given Documented by: [id number] Admin: 09/17/20 22:01 Dose: Not Given Documented by: [id number] Admin: 09/17/20 07:41 Dose: 500 mg Documented by: [id number] Admin: 09/16/20 20:59 Dose: 500 mg Documented by: [id number] Admin: 09/16/20 07:30 Dose: 500 mg Documented by: [id number] Admin: 09/15/20 20:14 Dose: 500 mg Documented by: [id number] Admin: 09/15/20 14:30 Dose: Not Given Documented by: [id number] Sodium Chloride (Nss 1000ml) 1,000 mls @ 999 mls/hr IV .Q1H1M [facility] Stop: 09/14/20 14:30 Last Infusion: 09/14/20 15:44 Dose: 0 mls/hr Documented by: [id number] Admin: 09/14/20 13:32 Dose: 999 mls/hr Documented by: [id number] Vancomycin HCl 1,000 mg/ (Sodium Chloride) 520 mls @ 200 mls/hr IV NOW ONE Stop: 09/14/20 16:14 Last Infusion: 09/14/20 18:24 Dose: 0 mls/hr Documented by: [id number] Admin: 09/14/20 15:00 Dose: 200 mls/hr Documented by: [id number] Cefepime HCl (Maxipime) 2,000 mg in 20 mls @ 5 mls/min IV NOW STA Stop: 09/14/20 13:42 Last Admin: 09/14/20 16:34 Dose: 5 mls/min Documented by: [id number] Lorazepam (Ativan) 0.5 mg in 1 mls @ 1 mls/min IV NOW STA Stop: 09/14/20 14:23 Last Admin: 09/14/20 15:00 Dose: 1 mls/min Documented by: [id number] Lorazepam (Ativan) 0.5 mg in 1 mls @ 1 mls/min IV NOW STA Stop: 09/14/20 15:12 Last Admin: 09/14/20 15:20 Dose: 1 mls/min Documented by: [id number] Dextrose (D5w) 1,000 mls @ 100 mls/hr IV .Q10H [facility] Stop: 10/14/20 16:59 Last Infusion: 09/19/20 09:35 Dose: 0 mls/hr Documented by: [id number] Admin: 09/19/20 08:19 Dose: 100 mls/hr Documented by: [id number] Infusion: 09/19/20 08:19 Dose: 100 mls/hr Documented by: [id number] Admin: 09/18/20 22:19 Dose: 100 mls/hr Documented by: [id number] Infusion: 09/18/20 22:04 Dose: 100 mls/hr Documented by: [id number] Admin: 09/18/20 12:04 Dose: 100 mls/hr Documented by: [id number] Infusion: 09/18/20 12:04 Dose: 100 mls/hr Documented by: [id number] Admin: 09/18/20 02:53 Dose: 100 mls/hr Documented by: [id number] Infusion: 09/18/20 01:32 Dose: 100 mls/hr Documented by: [id number] Admin: 09/17/20 15:32 Dose: 100 mls/hr Documented by: [id number] Infusion: 09/17/20 15:32 Dose: 100 mls/hr Documented by: [id number] Admin: 09/17/20 06:02 Dose: 100 mls/hr Documented by: [id number] Infusion: 09/17/20 06:02 Dose: 100 mls/hr Documented by: [id number] Admin: 09/16/20 20:57 Dose: 100 mls/hr Documented by: [id number] Infusion: 09/16/20 20:33 Dose: 100 mls/hr Documented by: [id number] Admin: 09/16/20 10:33 Dose: 100 mls/hr Documented by: [id number] Infusion: 09/16/20 10:33 Dose: 100 mls/hr Documented by: [id number] Admin: 09/16/20 02:12 Dose: 100 mls/hr Documented by: [id number] Infusion: 09/16/20 02:12 Dose: 100 mls/hr Documented by: [id number] Admin: 09/15/20 16:14 Dose: 100 mls/hr Documented by: [id number] Infusion: 09/15/20 16:14 Dose: 100 mls/hr Documented by: [id number] Admin: 09/15/20 06:35 Dose: 100 mls/hr Documented by: [id number] Infusion: 09/15/20 06:35 Dose: 100 mls/hr Documented by: [id number] Admin: 09/14/20 21:04 Dose: 100 mls/hr Documented by: [id number] Infusion: 09/14/20 21:04 Dose: 100 mls/hr Documented by: [id number] Admin: 09/14/20 19:15 Dose: 100 mls/hr Documented by: [id number] Sodium Chloride (Nss 1000ml) 1,000 mls @ 999 mls/hr IV .Q1H1M ONE Stop: 09/14/20 18:04 Last Infusion: 09/14/20 18:24 Dose: 0 mls/hr Documented by: [id number] Admin: 09/14/20 17:22 Dose: 999 mls/hr Documented by: [id number] Ceftriaxone Sodium 1,000 mg/ (Dextrose) 50 mls @ 100 mls/hr IV Q24H [facility]; Protocol Stop: 09/28/20 08:59 Last Infusion: 09/19/20 13:15 Dose: 0 mls/hr Documented by: [id number] Admin: 09/19/20 12:42 Dose: 100 mls/hr Documented by: [id number] Infusion: 09/18/20 10:29 Dose: 0 mls/hr Documented by: [id number] Admin: 09/18/20 09:49 Dose: 100 mls/hr Documented by: [id number] Potassium Chloride (K Tushar / Wtr) 10 meq in 100 mls @ 100 mls/hr IV Q1H [facility] Stop: 09/18/20 15:44 Last Infusion: 09/18/20 17:54 Dose: 0 mls/hr Documented by: [id number] Admin: 09/18/20 15:39 Dose: 100 mls/hr Documented by: [id number] Infusion: 09/18/20 15:23 Dose: 100 mls/hr Documented by: [id number] Admin: 09/18/20 14:23 Dose: 100 mls/hr Documented by: [id number] Infusion: 09/18/20 14:19 Dose: 100 mls/hr Documented by: [id number] Admin: 09/18/20 13:19 Dose: 100 mls/hr Documented by: [id number] Infusion: 09/18/20 13:02 Dose: 100 mls/hr Documented by: [id number] Admin: 09/18/20 12:02 Dose: 100 mls/hr Documented by: [id number] Infusion: 09/18/20 11:52 Dose: 100 mls/hr Documented by: [id number] Admin: 09/18/20 10:52 Dose: 100 mls/hr Documented by: [id number] Infusion: 09/18/20 10:49 Dose: 100 mls/hr Documented by: [id number] Admin: 09/18/20 09:49 Dose: 100 mls/hr Documented by: [id number] Magnesium Sulfate/Dextrose (Magnesium Sulfate / D5w) 1 gm in 100 mls @ 50 mls/hr IV Q2H [facility] Stop: 09/19/20 12:44 Last Infusion: 09/19/20 14:34 Dose: 0 mls/hr Documented by: [id number] Admin: 09/19/20 13:46 Dose: 50 mls/hr Documented by: [id number] Infusion: 09/19/20 13:46 Dose: 50 mls/hr Documented by: [id number] Infusion: 09/19/20 13:22 Dose: 50 mls/hr Documented by: [id number] Infusion: 09/19/20 11:15 Dose: 0 mls/hr Documented by: [id number] Admin: 09/19/20 09:39 Dose: 50 mls/hr Documented by: [id number] Potassium Chloride (K Tushar / Wtr) 10 meq in 100 mls @ 100 mls/hr IV Q1H [facility] Stop: 09/19/20 12:44 Last Infusion: 09/19/20 13:21 Dose: 100 mls/hr Documented by: [id number] Infusion: 09/19/20 11:15 Dose: 100 mls/hr Documented by: [id number] Admin: 09/19/20 10:40 Dose: 100 mls/hr Documented by: [id number] Infusion: 09/19/20 10:39 Dose: 100 mls/hr Documented by: [id number] Admin: 09/19/20 09:39 Dose: 100 mls/hr Documented by: [id number] Sodium Chloride (Nss 1000ml) 1,000 mls @ 999 mls/hr IV .Q1H1M ONE Stop: 09/19/20 11:56 Last Infusion: 09/19/20 12:41 Dose: 0 mls/hr Documented by: [id number] Admin: 09/19/20 11:05 Dose: 999 mls/hr Documented by: [id number] Piperacillin Sod/Tazobactam (Sod 3.375 gm/ Dextrose) 115 mls @ 230 mls/hr IV NOW ONE; Protocol Stop: 09/19/20 13:59 Last Infusion: 09/19/20 15:09 Dose: 0 mls/hr Documented by: [id number] Admin: 09/19/20 14:34 Dose: 230 mls/hr Documented by: [id number] Ioversol (Ioversol 100ml) 94 ml IV ONCE ONE Stop: 09/19/20 12:08 Last Admin: 09/19/20 12:07 Dose: 94 ml Documented by: [id number] Description This is a 21 electrode EEG with a single channel dedicated to limited EKG. The electrodes were placed in accordance with the International 10-20 system. History: ?epilepsy, AMS Rx: keppra 1g bid, vimpat 200mg bid, citalopram Start/Stop: 5:55am/6:15am Attending reading: Isabel Carrillo EEG Description: EEG background: Background was predominantly 5-7 Hz theta slowing. No well formed posterior dominant rhythm was observed. The EEG is continuous. There is variability and reactivity present. Activation and reactivity: Photic stimulation performed without any abnormalities noted. No photic driving observed. Hyperventilation was not performed. Sleep: No sleep architecture noted. Epileptiform discharges: No epileptiform discharges were observed. Rhythmic and periodic patterns: None Seizures: None Impression: This was a mildly abnormal EEG due to generalized slowing likely in the setting of toxic-metabolic encephalopathy, dementia or global cerebral dysfunction. No seizures or epileptiform discharges were seen. [facility] Procedure Codes Indication for Procedure (1) Seizure disorder: (2) AMS (altered mental status): Neurology Neurology: [id number] EEG include record awake & drowsy
--- NOTE | 2020-09-19 15:47 | Neurology Progress Note ---
Date of Service September 19, 2020 Assessment & Plan (1) Seizure disorder: (2) AMS (altered mental status): Faye Aragon is a 75 yo woman with PMH of HLD, SVID, neuropathy c/b gait dysfunction, hypothyroidism, epilepsy/PNES, conversion disorder, depression/anxiety, memory issues/dementia, hemochromatosis and gout who presents to [facility] after worsening of AMS in the setting of UTI. # AMS: most likely due to combination of UTI, ISIDRO/uremia, hypernatremia/multiple electrolyte abnormalities in the setting of infection in the setting of poor baseline mental status/possible dementia. EEG did show 2 possible generalized spike-slow wave discharges with bifrontal predominance, though obscured somewhat by muscle artifact. - MRI brain w/o to r/o stroke - continue to treat infection and electrolyte abnormalities per primary team - delirium precautions, lights on during day/off at night, frequent re- orientation, positive reminders of her boyfriend at the nursing facility - continue keppra 1g bid and vimpat 200mg bid; would try to have [facility] bring in zonegran 400mg qhs (non-formulary medication here) - recommend transfer to higher level of care for cEEG for spell classification/rule out NCSE and to have MRI brain obtained to r/o brainstem stroke as this appears to be unable to be performed here Thank you for this interesting consult. Plan of care discussed with primary team. Please call or text with questions. Admission and Anticipated Discharge Date Admission Date: September 14, 2020 Subjective Still having periods of minimal interaction, refusing medications and agitation. EEG did not show any seizures at the time recording was performed. Had repeat CTH that was unremarkable. Difficulty getting MRI approved through radiology due to patient having a VNS so not yet obtained. Lactate persistently high despite UTI being treated. Transferred to ICU this afternoon after she became more unresponsive. Review of Systems Review of Systems: Unobtainable due to cognitive status Results & Data ([facility]) Vital Signs (Past 12 Hours) Vital Signs Temp Pulse Pulse Resp BP BP Pulse Ox 09/19/20 11:22 36.7 C 68 20 126/73 100 09/19/20 09:00 67 09/19/20 07:34 36.8 C 68 18 134/80 99 09/19/20 04:00 32.7 C L 84 20 131/81 97 Exam (Neuro) Physical Exam: General Exam: GEN: NAD, lying in bed HEENT: No conjunctival injection, no rhinorrhea. CV: RRR, no peripheral edema PULM: Nonlabored respirations on room air. Neuro Exam: MS: Drowsy, arousable to noxious stimuli but not voice. Non-verbal, did not answer any orientation questions or follow commands. Inattentive. Cognition and memory grossly impaired. CN: BTT. PERRLA OU. Eyes midline with no gaze preference, +dolls eyes. Facial muscles full and symmetric. MOTOR: able to move extremities with noxious stimuli but unable to fully assess strength REFLEXES: 1+ at biceps, triceps, brachioradialis, 1+ patella and Achilles bilaterally. Flexor plantar responses bilaterally. SENSORY: Withdraws to noxious stimuli throughout. COORDINATION: unable to assess 2/2 mental status GAIT: deferred given physical/mental status PG Care Time/CCT Total # of Minutes Spent Total Time Spent with Patient: Total time spent is greater than 50% in coordination of care (as documented) at patient's floor/unit and/or counseling patient: Coding Level of Care Code 95074 Subseq Hosp Care Lvl 3 Diagnoses Seizure disorder G40.909 AMS (altered mental status) R41.82 Altered mental status type: unspecified (1) AMS (altered mental status) Altered mental status type: unspecified Qualified Code(s): R41.82 - Altered mental status, unspecified
--- NOTE | 2020-09-19 17:33 | Critical Care Consultation ---
Date of Consultation September 19, 2020 Assessment & Plan (1) Seizure disorder: (2) AMS (altered mental status): (3) Metabolic acidosis: Impression: 75-year-old female with complicated neurological history as noted above admitted from [facility] with altered mental status. It was initially felt that this was potentially related to a UTI or electrolyte abnormalities however she has been on antibiotics and the electrolyte abnormalities have corrected without significant improvement in her neurological status. Unfortunately her mental status appears to be deteriorating. Spot EEG did not demonstrate any focal seizure activity but the patient has not been continued on all of her outpatient antiepileptic medications. Imaging of the brain including a CT of the head has been unremarkable but we have been unable to get an MRI to this point. Recommendations: 1. Altered mental status: Discussed the case extensively with neurology and the admitting hospitalist at the bedside. It appears the patient would benefit from extended EEG monitoring to exclude potential seizure activity. The patient also needs MRI of the brain potentially with sedation to minimize motion artifact and ensure a good study. Unfortunately were not able to get either the studies performed at this hospital and therefore I would recommend a neurology concurs that the patient should be transferred to a higher level of care. Hospitalist is working on making those arrangements. I would not recommend additional antiepileptics without additional EEG data. There does not appear to be strong indication to pursue lumbar puncture currently as the patient is not febrile or manifesting a leukocytosis. Will defer to neurology. 2. Lactic acidosis: Unclear etiology although certainly seizure could cause lactate to be elevated. Abnormal clearance could also be an issue. Unclear if this represents type a or type B lactic acidosis. 3. Respiratory alkalosis. Typically respiratory alkalosis is in response to primary insult such as fever, pulmonary embolism, infection, or ingestion. None of those appear to be present although certainly seizure activity could cause this pattern as well and should be excluded. She is in no danger of respiratory compromise currently and appears to be protecting her airway and maintaining appropriate minute ventilation. 4. E. coli urinary tract infection. Resistant to fluoroquinolones and ampicillin. Patient was initially on cephalexin. Her white count has been normal. She was transitioned to Zosyn today. Can likely de-escalate antibiotics with Rocephin but will defer to hospitalist. 5. Hypothermia: Now resolved. Unclear etiology. Cortisol is pending. Anticipate the patient will be transferred to a quaternary referral center that has capability of performing required imaging as well as continuous EEG monitoring. History of Present Illness Attending Physician: Sindy Schmidt MD History of Present Illness Asked by hospitalist to assist in management of this patient with encephalopathy. History is obtained from review electronic medical record as well as discussion with the hospitalist and the neurology service. The patient is obtunded and unable to provide any history. Patient is a 75-year-old female who was admitted to the hospital on September 14 from [facility] due to altered mental status. The patient has a history of epilepsy conversion disorder anxiety depression memory issues and dementia and has an underlying vagal nerve stimulator. She presented with electrolyte abnormalities which were corrected. Neurology consultation was obtained yesterday. They felt that it was most consistent with UTI, uremia, hypernatremia, electrolyte abnormalities as well as potential infection in the setting of poor baseline mental status. They recommended brain MRI to rule out stroke however its been difficult to obtain this. The patient had progressive worsening of her mental status today and we are unable to get imaging. The hospitalist was concerned about her acid-base status as well as ability to protect her airway and recommended transfer to the ICU. I assessed the patient on arrival. She is obtunded but does have a gag and cough reflex in place. When stimulated, she is able to move all 4 extremities. Her eyes are conjugate. She does not have any nystagmus noted. There was que stionable rhythmic head rolling noted upstairs. Allergies Allergy/AdvReac Type Severity Reaction Status Date / Time hydrocortisone Allergy Intermediate DELIRIUM Verified 09/04/20 08:34 phenobarbital Allergy Intermediate RASH Verified 09/14/20 15:34 lamotrigine Allergy Unknown RASH Verified 09/14/20 15:34 hydrocodone Allergy Unknown Verified 09/14/20 15:34 acetaminophen AdvReac Unknown GI SYMPTOMS Verified 09/18/20 22:22 Home Medications Medication Instructions Recorded Confirmed Type acetaminophen [Tylenol] 650 mg PO QID PRN 09/14/20 09/14/20 History allopurinol [Zyloprim] 300 mg PO DAILY 09/14/20 09/14/20 History bisacodyl [Dulcolax (bisacodyl)] 10 mg ND UD PRN 09/14/20 09/14/20 History calcium carbonate 500 mg PO BID 09/14/20 09/14/20 History carboxymethylcellulose sodium 2 drp OPHTHALMIC (EYE) QID 09/14/20 09/14/20 History [TheraTears] ceftriaxone 1 g IM DAILY 09/14/20 09/14/20 History cholecalciferol (vitamin D3) 50,000 unit PO .Q FRI 09/14/20 09/14/20 History citalopram 10 mg PO DAILY 09/14/20 09/14/20 History cyanocobalamin (vitamin B-12) 500 mcg PO DAILY 09/14/20 09/14/20 History [Vitamin B-12] donepezil 10 mg PO DAILY 09/14/20 09/14/20 History folic acid 1 mg PO DAILY 09/14/20 09/14/20 History lacosamide [Vimpat] 200 mg PO BID 09/14/20 09/14/20 History lactulose 30 ml PO DAILY 09/14/20 09/14/20 History levetiracetam [Keppra] 1,000 mg PO BID 09/14/20 09/14/20 History levothyroxine 75 mcg PO DAILY 09/14/20 09/14/20 History lidocaine [Lidocaine Pain Relief] 2 patch TOPICAL AMPM 09/14/20 09/14/20 History lorazepam 0.5 mg IM Q6 PRN 09/14/20 09/14/20 History mirtazapine 15 mg PO HS 09/14/20 09/14/20 History polyethylene glycol 3350 [Miralax] 17 g PO DAILY 09/14/20 09/14/20 History promethazine 25 mg PO Q6H PRN 09/14/20 09/14/20 History simvastatin 40 mg PO QPM 09/14/20 09/14/20 History soap [Baby Shampoo] 1 ea TOPICAL UD PRN 09/14/20 09/14/20 History zonisamide 400 mg PO DAILY 09/14/20 09/14/20 History Patient History Medical History Chronic cerebral ischemia Dementia Depression with anxiety Dizziness Generalized epilepsy Generalized osteoarthritis of multiple sites Gout Hereditary hemochromatosis Hypercholesteremia Hypothyroidism Peripheral neuropathy Family History Family/Other No pertinent past medical history Social History Smoking Status: Unknown if ever smoked Preferred Language: Thai Communication Ability: Effective Rehab Director Required: No Current Living Situation: Detention Assistive Devices: None Review of Systems Review of Systems: Unobtainable due to reduced consciousness Physical Exam Constitutional: WD/WN, vitals as above Eyes: + anicteric sclerae Neck: trachea midline, no thyromegaly Respiratory: normal respiratory effort, lungs clear to auscultation Cardiovascular: RRR, no murmur, no edema Chest (Breasts): Chest: normal inspection of chest Gastrointestinal (Abdomen): normal bowel sounds, soft, nontender, no hep atosplenomegaly Musculoskeletal: Extremities: extremities normal to inspection; no cyanosis and no clubbing Skin: no rashes, warm and dry Neurologic: moves all extremities and + obtunded; no focal motor deficits and + not awake Psychiatric: Orientation: alert, oriented to person and cooperative; + not oriented to place and + not oriented to time Eye Contact: + poor eye contact Affect: + flat affect Thought Process: + looseness of associations and + incoherent thought process Lymphatic: no lymphedema Results & Data Results & Data ([facility]) Vital Signs (Past 12 Hours) Vital Signs Temp Pulse Pulse Resp BP BP Pulse Ox 09/19/20 15:58 63 16 113/63 100 09/19/20 11:22 36.7 C 68 20 126/73 100 09/19/20 09:00 67 09/19/20 07:34 36.8 C 68 18 134/80 99 Laboratory Results 09/19/20 07:02 09/19/20 14:08 Arterial blood gas today showed a pH 7.48, PCO2 of 20, PO2 of 130 Anion gap of 11 Lactate of 4.7 Calcium 7.6 Magnesium 1.6 Troponin 0 0.057 Albumin 2.4 Random cortisol 14 Diagnostic Findings EEG performed today showed generalized slowing without seizure or epileptiform discharges. CT of the head x2 without acute abnormality identified CT of the abdomen and pelvis compromised by motion however no evidence of overt abnormality. Mild colonic wall thickening potentially consistent with transverse/descending colitis. Coding Level of Care Code 03671 Inpt Consult Level 5 Diagnoses Seizure disorder G40.909 AMS (altered mental status) R41.82 Altered mental status type: unspecified Metabolic acidosis E87.2 Time Spent (min) 60 (1) AMS (altered mental status) Altered mental status type: unspecified Qualified Code(s): R41.82 - Altered mental status, unspecified
[2020-09-19] MEDS ORDERED: PIPERACILLIN/TAZOBACTAM 3.375 GM in DEXTROSE 5% 100 ML IV SCH (18:00)
[2020-09-19 18:54] LABS: BUN Creatinine Ratio 12.4 (10-20); Calcium 7.3 mg/dl (8.5-10.1); Creatinine Clr Calc Pharmacy 66.5 ml/min; Est GFR (African American) 106.6; Potassium 3.4 mmol/L (3.5-5.1)
[2020-09-19] MEDS ORDERED: POTASSIUM CHLORIDE / WTR 10 MEQ/100 ML PLCT IV ONE (19:15)
--- NOTE | 2020-09-19 19:24 | Discharge Summary ---
Date of Service September 19, 2020 Admission HPI Per Admitting Provider Faye Aragon is a 75 year old female from [facility] who presents to the ER with altered mental status and abnormal labs. Unable to get any history from patient due to altered mental state. Outpatient labs were concerning for hyponatremia with a sodium of 152. This is from a baseline of 132 on August 16. She is reportedly not been eating and drinking as much and is continued on the same dose of Lasix throughout this time. This was only discontinued but she had her last dose yesterday. She was tested for a urine tract infection with urine culture growing gram-negative rods. Plan had been to start on ceftriaxone IM however due to abnormal labs she has not received any doses and was transferred to the ER. Discussed with her daughter over the phone. She reports being very unhappy with care [facility]. She notes her mother had COVID-19 at the beginning of June. She reports her mother did "very well" with this but after being moved to the back to the [facility] at some point in June she started to have a large progressive deterioration. She notes her mother was started on something like morphine which she was given regularly until she complained enough a week ago that it was discontinued. I discussed with the provider who sent the patient over from [facility] Dr. Reeves. He confirmed that there is a palliative protocol for morphine for COVID-19 patient's on palliative care however was unable to give me any details regarding this patient's case as he is any just come back to working at [facility]. Given that she is for full resuscitation I am unclear why or whether she was given morphine or any opiates. Her daughter also notes she has hereditary hemochromatosis. Her mother was following a adjunct lecturer in [place] but has not seen one since moving to [place] in [facility]. She reports concern with this and does not know whether [facility] was checking any numbers. Discussed multiple lab studies with her daughter including elevated calcium, sodium, creatinine. I discussed the patient's diagnosis of depression, her daughter confirms this but notes " who isn't depressed", and dementia which the daughter reports is due to multiple seizures throughout her lifetime of epilepsy and her baseline is walking around with a walker and having full meaningful conversations - she reports up until June she was probably the most cognitively aware patient at [facility]. In the ER the patient is alert but very confused. She is nonverbal to myself with rolling her eyes and my questions. This does not appear to be seizure-like activity as stops when I stop questioning her. Imaging of CT head, CT abdomen pelvis and chest x-ray were unremarkable. Principal Diagnosis Acute encephalopathy, suspected status epilepticus versus brainstem stroke, hypothermia, respiratory alkalosis with compensated metabolic acidosis, possible sepsis UTI, nonspecific colitis Discharge Exam Constitutional + ill appearing, average body habitus and + lethargic; no acute distress Eyes + anicteric sclerae and PERRL; no conjunctival abnormality, no anisocoria and no nystagmus ENMT external ear and nose normal, oropharynx normal Neck trachea midline, no thyromegaly Respiratory normal respiratory effort, lungs clear to auscultation Cardiovascular RRR, no murmur, no edema Chest (Breasts) Chest: normal inspection of chest Gastrointestinal (Abdomen) normal bowel sounds, soft, nontender, no hepatosplenomegaly Musculoskeletal Extremities: extremities normal to inspection; no cyanosis and no clubbing Skin + rash (Petechiae on right side of chest) Neurologic moves all extremities (Only responds to painful stimulus), + confused and + obtunded (Intermittently) Motor/Sensory: no tremor and no sensory deficit (Sensation intact to painful stimulus throughout) Reflexes 2+ Unable to cooperate for remaining exam No facial droop Psychiatric Orientation: + not oriented x 3 and + uncooperative Eye Contact: + poor eye contact Speech: + mute Affect: + flat affect Hallucinations: + visual hallucinations Genitourinary Carlson catheter in place draining clear yellow urine Lymphatic no lymphedema Discharge Data Allergies Allergy/AdvReac Type Severity Reaction Status Date / Time hydrocortisone Allergy Intermediate DELIRIUM Verified 09/04/20 08:34 phenobarbital Allergy Intermediate RASH Verified 09/14/20 15:34 lamotrigine Allergy Unknown RASH Verified 09/14/20 15:34 hydrocodone Allergy Unknown Verified 09/14/20 15:34 acetaminophen AdvReac Unknown GI SYMPTOMS Verified 09/18/20 22:22 Consultations 09/14/20 16:52 ED Decision to Admit Stat 09/14/20 21:03 Consult Hematology Routine 09/17/20 14:19 Consult Neurology Routine 09/18/20 13:55 Consult Health Information Management Stat 09/18/20 17:31 Consult Psychiatry Routine 09/19/20 14:41 Consult Nephrology Routine 09/19/20 18:38 Burn CD for patient Stat Ordered Studies 09/14/20 14:29 CT abd pelvis wo con Stat CT head/brain wo con Stat 09/19/20 11:03 CT abd pelvis IV con only Stat 09/19/20 11:39 CT head/brain wo con Stat Chest x-ray Hospital Course (1) AMS (altered mental status): Appears to have had a decline since since June possibly due to Covid delirium versus morphine use (unclear reason for morphine given at SNF per daughter) versus multiple recent changes to medications, including citalopram/mirtazapine versus seizures versus progressive dementia (appears very fast decline per daughter for this) versus worsening depression with psychosis. More acute decline explained by hypernatremia and current UTI, possible sepsis- however both these are being corrected and does not seem to have much improvement. Now with worsening hypothermia in the last 24 hours and worsening mental status with being obtunded at times. Also with head shaking [id number] and eyes rolling up at times-question if having seizure activity. EEG with mild slowing consistent with generalized encephalopathy but no seizure activity Not eating or drinking Continue IV fluid hydration With developing worsening metabolic acidosis compensatory for chronic respiratory alkalosis as per analysis of ABG and BMP-question if this is stimulated by sepsis versus a central nervous system issue or brainstem issue? Question of having any withdrawal from Zonegran as she has not received in 5 days B12, folate WNL, Lyme neg With hypokalemia, metabolic acidosis, lactate elevated at 4.7 and not improving with IV fluids. CT abdomen/pelvis repeated on 09/19 shows nonspecific colitis and possible right- sided pyelonephritis-broadened antibiotics MRI brain 2016 normal Appreciate Neuro consult: question seizure activity vs conversion/psych issues, combo of UTI/ISIDRO and uremia, hypernatremia/lyte abnormalities in the setting of infection in the setting of poor baseline mental status/possible dementia and recommends: -MRI Brain-trying to get Vagus Nerve stimulator turned off through [facility] [place] . They need her op report from [place]-requested this but never came-radiology here does not feel comfortable putting her through the scanner with her being encephalopathic and unable to determine if nerve stimulator would heed up - continue to treat infection and electrolyte abnormalities-broadened with antibiotic coverage to IV Zosyn given nonspecific colitis on CT scan - delirium precautions - continue keppra 1g bid and vimpat 200mg bid; would try to have alf bring in zonegran 400mg qhs to administer if she will take PO again-of note, she has not received Zonegran this entire admission - if events c/f seizures noted, would consider transfer to higher level of care for cEEG for spell classification/rule out NCSE -Check thiamine level-pending at the time of discharge -Start thiamine 200 mg IV once daily in case of Wernicke's encephalopathy Given inability to perform continuous EEG here-she has been accepted for transfer to [facility] in [place] to higher level of care for continuous EEG and to see if she can get brain MRI there to rule out mid brain stem stroke as causes of her issues. (2) Seizure disorder: Epilepsy/PNES Per last neurology note. Continue Zonegran 400 mg nightly if can be brought in from nursing facility -Continue Vimpat 200 mg twice daily, Keppra 1000 mg twice daily, both of which have been converted to IV while she is refusing p.o. meds. No generalized seizure activity noted here, there is some nonspecific movements with head shaking and generalized encephalopathy Has had epilepsy since childhood Appreciate neurology input Transfer out for continuous EEG as above (3) Hypokalemia: Potassium severely low at times here now improving with replacement Follow BMP and magnesium level in the morning (4) Metabolic acidosis: Serum bicarbonate continues to decrease down to 17, anion gap is 11 ABG 7.4 8/20/130 on room air This is a mixed acid-base disorder with what seems to be chronic respiratory alkalosis with appropriate compensatory metabolic acidosis Lactate elevated at 4.7 and did not improve after IV fluids-repeat is pending Hypothermic Unclear cause, CT abdomen/pelvis as above with nonspecific colitis possible pyelonephritis. She has already been treated adequately for her UTI with E. coli but broaden coverage to IV Zosyn and discontinued IV ceftriaxone to cover for GI related illness as well as pyelonephritis. This could be secondary to sepsis versus subclinical status epilepticus versus endocrine issue although TSH and cortisol are normal Follow lactate, continue IV fluid hydration, continue broad-spectrum antibiotics (5) Elevated troponin: Troponin mildly elevated upon admission and then trended downward Difficult to tell if this had any chest pain but suspect this is myocardial demand ischemia (6) Chronic respiratory alkalosis: As above (7) Hypothermia: As above May have contributed to worsening mental status on the day of transfer (8) Sepsis: As above (9) Acute UTI (urinary tract infection): Received cefepime on admission, then changed to keflex given cx results from 09/13 show Ecoli with sensitivity to cephalosporins However, converted to IV ceftriaxone as she was not taking po meds Transition to Zosyn as above (10) ISIDRO (acute kidney injury): Secondary to Lasix use with reduced oral intake upon admission. Creatinine is now improved to 0.64 after receiving IV fluids and holding Lasix Monitor with BMP in a.m. (11) Acute hypernatremia: Secondary to free water deficit due to poor oral intake Sodium 152 for several days after admission and now improved to 138 after receiving IV D5W for many days Discontinue D5W and given normal saline Follow BMP (12) Peripheral neuropathy: Noted in history (13) Hypothyroidism: TSH WNL here at 1.96 Continue levothyroxine 75 mcg p.o. daily (14) Severe protein-calorie malnutrition: Reg diet (15) Thrombocytopenia: Platelets were down to 87 and now back up to 97 Appreciate hematology consultation Possibly secondary to early sepsis, stress, or drug (antibiotics) as per hematology Improving, follow CBC (16) Hypercholesteremia: Continue simvastatin (17) Depression with anxiety: With a long history of such Was just placed on citalopram and mirtazapine 2 weeks ago by neurology -We will hold mirtazapine and Celexa in case contributing to worsening mental status Psychiatry consulted but unable to contribute much as patient was encephalopathic (18) Gout: No acute issues We will hold home allopurinol while n.p.o. for encephalopathy (19) Anemia: Hemoglobin low at 10.9, normocytic B12 and folate levels here are normal Iron studies consistent with iron overload with transferrin saturation of 101%, consistent with known hereditary hemochromatosis Check Hemoccult stool-pending Could be from previous phlebotomy? Unclear when last phlebotomy was (20) Hereditary hemochromatosis: Transferrin saturation elevated at 101% Seen by heme, no acute needs at this time regarding phlebotomy Is a long history of multiple phlebotomies with port in place (21) DVT prophylaxis: Lovenox Disposition-transferred to ICU as became obtunded. Decision made to transfer to tertiary care facility for further work-up as above She has been accepted by [facility] in [place] by Total Time Total Time Spent Total Time Spent (In Minutes): 120 minutes Total Time Includes: Examination of the Patient, Discharge Planning, Medication Reconciliation and Communication With Other Providers ([employer] Control Room Operator, nephrology, neurology) Discharge Plan Discharge Items Patient Disposition: Transfer Acute Care Hospital Reason For Visit: UTI SEPSIS Discharge Diagnosis: Acute encephalopathy, possible status epilepticus, UTI and possible sepsis, hypothermia Condition on Discharge: Serious Activity: As commented below Exercise/Sports: Rest today Non-emergency contact: Primary Care Provider and Neurologist Call non-emergency contact if: you have any medication questions and your symptoms worsen Follow-up/Referrals: Avtar Salas [Primary Care Provider] - Diet: Nothing by Mouth Addtl Attending Provider Instructions: Transferred to [facility] in [place] Pending Studies at Discharge: No Stand-Alone Forms: [facility] Skilled Items Patient informed of condition?: Yes DNR: No Discharge Level of Care: Other Communicable Disease: No Discharge Prognosis: Deteriorating Lines: [facility] Urinary Catheter: Yes Medications and DC Order Prescriptions: Continued lidocaine [Lidocaine Pain Relief] 4 % Adhesive Patch,Medicated 2 patch TOPICAL AMPM RF: 0 polyethylene glycol 3350 [Miralax] 17 gram Powder In Packet 17 g PO DAILY RF: 0 citalopram 10 mg Tablet 10 mg PO DAILY RF: 0 lorazepam 2 mg/mL solution 0.5 mg IM Q6 PRN (Reason: Seizure Activity) RF: 0 donepezil 10 mg tablet 10 mg PO DAILY RF: 0 calcium carbonate 500 mg calcium (1,250 mg) Capsule 500 mg PO BID RF: 0 TheraTears 0.25 % Drops 2 drp OPHTHALMIC (EYE) QID RF: 0 simvastatin 40 mg tablet 40 mg PO QPM RF: 0 levothyroxine 75 mcg tablet 75 mcg PO DAILY RF: 0 zonisamide 100 mg capsule 400 mg PO DAILY RF: 0 cyanocobalamin (vitamin B-12) [Vitamin B-12] 500 mcg Tablet 500 mcg PO DAILY RF: 0 bisacodyl [Dulcolax (bisacodyl)] 10 mg Suppository 10 mg KY UD PRN (Reason: Q72HRS PRN CONSTIPATION) RF: 0 folic acid 1 mg tablet 1 mg PO DAILY RF: 0 allopurinol [Zyloprim] 300 mg tablet 300 mg PO DAILY RF: 0 mirtazapine 15 mg Tablet 15 mg PO HS RF: 0 Baby Shampoo Shampoo 1 ea TOPICAL UD PRN (Reason: APPLY TO B/L EYES FOR CRUSTING) RF: 0 lactulose 10 gram/15 mL solution 30 ml PO DAILY RF: 0 acetaminophen [Tylenol] 325 mg Capsule 650 mg PO QID PRN (Reason: Fever Or Pain) RF: 0 levetiracetam [Keppra] 1,000 mg tablet 1,000 mg PO BID RF: 0 cholecalciferol (vitamin D3) 1,250 mcg (50,000 unit) capsule 50,000 unit PO .Q THU RF: 0 Vimpat 200 mg Tablet 200 mg PO BID RF: 0 Discontinued ceftriaxone 1 gram recon soln 1 g IM DAILY RF: 0 promethazine 25 mg Tablet 25 mg PO Q6H PRN (Reason: Nausea) RF: 0 Discharge Orders: Discharge Order (Routine); Ordered 09/19/20 Ordered By: Sindy Schmidt Admission Data Admit Date/Time: 09/14/20 16:57 Attending Provider: Sindy Schmidt Admit Provider: Jerry Meza Primary Care Provider: Avtar Salas Other Providers: Jerry Meza ; Leobardo Gonzales Christina R. ; Charo Toledo ; Diamante Johnson Coding Level of Care Code D/C Day Management >30 mins Diagnoses AMS (altered mental status) R41.82 Altered mental status type: unspecified Seizure disorder G40.909 Hypokalemia E87.6 Metabolic acidosis E87.2 Elevated troponin R77.8 Chronic respiratory alkalosis E87.3 Hypothermia T68.XXXA Sepsis A41.9; R65.20; N17.9 Acute renal failure type: unspecified Sepsis acute organ dysfunction status: with acute organ dysfunction Sepsis type: sepsis due to unspecified organism Severe sepsis acute organ dysfunction type: acute renal failure Severe sepsis shock status: without septic shock Acute UTI (urinary tract infection) N39.0 ISIDRO (acute kidney injury) N17.9 Acute hypernatremia E87.0 Peripheral neuropathy G62.9 Hypothyroidism E03.9 Severe protein-calorie malnutrition E43 Thrombocytopenia D69.6 Hypercholesteremia E78.00 Depression with anxiety F41.8 Gout M10.9 Anemia D64.9 Hereditary hemochromatosis E83.110 DVT prophylaxis Z29.9
[2020-09-19] MEDS ORDERED: SODIUM CHLORIDE 0.9% 1000ML 1,000 ML IV SCH (20:15)
[2020-09-19] MEDS: SIMVASTATIN 40 MG TAB PO SCH (20:46)
[2020-09-19] MEDS: ENOXAPARIN INJ 40 MG/0.4 ML SYR SQ SCH (21:01)
[2020-09-20 00:55] LABS: Cdiff Antigen Positive
[2020-09-20 00:56] LABS: Cdiff Toxin A+B Positive Cdiff Toxin (Negative)
== END 2020-09-20 00:35 | disposition short-term general hospital (02) | DRG 689 ==
LOC: ED 12:42 → 2N 16:57 → SUATTDRO 16:57 → 2N 20:27 → 1E 09-19 16:47

== ENCOUNTER 2020-12-06 11:36 | Inpatient (IN) ==
[2020-12-06] MEDS ORDERED: SODIUM CHLORIDE 0.9% 1000ML 1,000 ML IV SCH (12:00)
[2020-12-06] MEDS ORDERED: SODIUM CHLORIDE 0.9% 500 ML IV SCH (12:00)
[2020-12-06 12:34] LABS: Basophils # (auto) 0.01 K/uL (0-0.2); Basophils % (auto) 0.1 %; Eosinophils # (auto) 0.06 K/uL (0-0.5); Eosinophils % (auto) 0.7 %; Hematocrit (blood only) 40.5 % (37-47); Hemoglobin 13.2 g/dL (12.0-16.0); Immature Granulocytes # (auto) 0.02 K/uL (0.00-0.02); Immature Granulocytes % (auto) 0.2 %; Lymphocytes # (auto) 2.22 K/uL (1.2-3.4); Lymphocytes % (auto) 26.5 %; Mean Corpuscular Hemoglobin 35.2 pg (25-34); Mean Corpuscular Hgb Conc 32.6 g/dL (32-36); Mean Platelet Volume 11.1 fL (7.4-10.4); Monocytes # (auto) 0.45 K/uL (0.11-0.59); Monocytes % (auto) 5.4 %; Neutrophils # (auto) 5.62 K/uL (1.4-6.5); Neutrophils % (auto) 67.1 %; Platelet Count 151 K/uL (130-400); RDW Coefficient of Variation 15.9 % (11.5-14.5); RDW Standard Deviation 62.1 fL (36.4-46.3); Red Blood Count 3.75 M/uL (4.2-5.4); White Blood Count 8.38 K/uL (4.8-10.8)
--- NOTE | 2020-12-06 12:45 | XRay Report ---
XR chest 1V portable HISTORY: weakness COMPARISON: Chest 10/06/2020. FINDINGS: No pneumothorax. No pleural effusions. The heart is top normal in size. This remains unchan ged. No evidence for pulmonary edema. Electronic stimulator device is again noted within the left [address]. There is a right jugular Port-A-Cath which terminates at the SVC. Patchy left basilar airspace op acity remains unchanged. This favors scarring/atelectasis. No new focal lung consolidations identifie d. IMPRESSION: 1. No new focal lung consolidations. 2. No change in the small left retrocardiac density. This favors scarring/atelectasis. ACT 112: Negative or not required by law. Electronically signed by: Porfirio Weber M.D. 12/06/2020 12:43 PM
[2020-12-06] MEDS ORDERED: DEXTROSE 5% 1,000 ML IV STA (12:50)
[2020-12-06 13:04] LABS: Alanine Aminotransferase 49 U/L (12-78); Albumin Level 3.2 gm/dl (3.4-5.0); Alkaline Phosphatase 95 U/L (45-117); Aspartate Aminotransferase 39 U/L (15-37); BUN Creatinine Ratio 68.9 (10-20); Bilirubin,Total 0.1 mg/dl (0.2-1); Blood Urea Nitrogen 37 mg/dl (7-18); Calcium 9.3 mg/dl (8.5-10.1); Carbon Dioxide 21 mmol/L (21-32); Chloride 129 mmol/L (98-107); Est GFR (African American) 109.2; Est GFR (Non-African American) 94.2; Globulin 3.2 gm/dl (2.5-4.0); Glucose 85 mg/dl (70-99); Magnesium 2.3 mg/dl (1.8-2.4); Potassium 4.1 mmol/L (3.5-5.1); Sodium 156 mmol/L (136-145); Total Protein 6.4 gm/dl (6.4-8.2); Troponin I < 0.015 ng/ml (0-0.045)
--- NOTE | 2020-12-06 13:35 | Emergency Department Note ---
Impression & Plan Acute hypernatremia, AMS (altered mental status) ED Provider Note INFORMANT: Nursing notes, daughter ED PROVIDER(S): Umang Arriaga MD CHIEF COMPLAINT: Abnormal labs PLAN: Disposition: Admitted Condition: Guarded Outpatient prescription management: none Referral: None MEDICAL DECISION MAKING: Patient presented to the emergency department because of abnormal labs. She was found to have hyponatremia yesterday. She was mildly hypertensive. She clinically looks dehydrated. She had a normal saline bolus administered. Fluids were switched to D5W. She had hypernatremia confirmed on her labs. She was also exhibiting hyperchloremia. She had elevated BUN to creatinine ratio concerning for dehydration. I discussed her case and history with her daughter Daniela. She did note that the patient had relative improvement on Thursday her mental status. Her mental status had deteriorated again over the last few days. [facility] Dr[facility] Me[facility]. patient was valuated in the ER and admitted. Triage Nursing notes reviewed and agree them. Vital Signs: reviewed and remarkable for hypotension Differential diagnosis: Infection, dehydration, metabolic abnormality, hypo/hyperglycemia, electrolyte disturbance, anemia, hypoxia, cardiac sources, intracerebral event, toxicologic, neurologic, as well as other pathologies. Diagnostics interpreted by me: ECG: Twelve-lead ECG reveals normal sinus rhythm at 63 bpm. Left axis deviation. Incomplete right bundle branch block. Inferior Q waves. No PVCs or PACs. Cardiac Monitoring: Cardiac monitoring ordered by me: The patient was placed on continuous cardiac monitoring and observed. It revealed a normal sinus rhythm at 62 beats per minute without ectopy or evidence of dysrhythmia. Imaging studies: Chest x-ray. Findings: A chest x-ray was performed and revealed no pneumothorax, effusion, infiltrate, pulmonary edema, free air under the diaphragm, or wide mediastinum. Impression: No acute disease. HPI: The patient is a 75 year old female who presents to the Emergency Room with hyponatremia found on outpatient labs. This started yesterday and is recurrent problem. The patient has had this before. She was admitted to the hospital 2 months ago for the same. She has. Mental status at baseline. She seemed to be doing somewhat better 4 days ago per the daughter. She has decreased mental status again. Outpatient labs were done yesterday and she was found to have a sodium of 156. History is limited secondary to patient's mental status. ROS: See above HPI for pertinent positives & negatives. Limited secondary to patient's mental status. PAST MEDICAL HISTORY:See Below , hyponatremia, hemochromatosis PAST SURGICAL HISTORY:See Below, FAMILY HISTORY:See Below SOCIAL HISTORY:See Below, resides in a [facility]p HOME MEDICATIONS:See Below ALLERGIES:See Below VITALS:See Below PHYSICAL EXAMINATION: GENERAL: Sleepy but arousable. Dehydrated-appearing, in no distress HENT: Normocephalic, atraumatic. Oropharynx unremarkable. EYES: Normal conjunctiva. Sclera non-icteric. NECK: Inspection normal. Non-tender. Supple. No nuchal rigidity. FROM. No mass es. RESPIRATORY: Clear to auscultation. No wheezes. No rales. Normal respiratory effort. CARDIAC: Normal rate. Normal rhythm. No murmurs. No rubs. Extremities warm and well perfused. Pulses equal. No JVD. GI: Soft, non-distended. No obvious tenderness to palpation. No rebound or guarding. No masses. PEG tube in place. RECTAL: Deferred. MUSCULOSKELETAL: Atraumatic. Chest examination reveals no tenderness. The back is symmetrical on inspection without obvious abnormality. There is no CVA tend erness to palpation. No joint edema. LOWER EXTREMITIES: Calves are equal size bilaterally and non-tender. No edema. No discoloration. NEURO: Altered sensorium. Not following commands. Opens eyes to voice. SKIN: No rash or jaundice noted. Umang Arriaga MD Past Med/Surg History Medical History Chronic cerebral ischemia Dementia Depression with anxiety Dizziness Generalized epilepsy Generalized osteoarthritis of multiple sites Gout Hereditary hemochromatosis Hypercholesteremia Hypothyroidism Peripheral neuropathy Family History Family/Other No pertinent past medical history Social History Smoking Status: Unknown if ever smoked Preferred Language: Tajik Communication Ability: Effective Home Economist Required: No Current Living Situation: Intermediate Feels Safe at Home: Yes Assistive Devices: None Allergies Allergies Allergy/AdvReac Type Severity Reaction Status Date / Time hydrocortisone Allergy Intermediate DELIRIUM Verified 12/06/20 13:36 phenobarbital Allergy Intermediate RASH Verified 12/06/20 13:36 lamotrigine Allergy Unknown RASH Verified 12/06/20 13:36 hydrocodone Allergy Unknown Verified 12/06/20 13:36 acetaminophen AdvReac Unknown GI SYMPTOMS Verified 12/06/20 13:36 Home Meds Home Medications Medication Instructions Recorded Confirmed acetaminophen [Tylenol] 650 mg FEEDING TUBE QID PRN 09/14/20 12/06/20 bisacodyl [Dulcolax (bisacodyl)] 10 mg MI UD PRN 09/14/20 12/06/20 calcium carbonate 500 mg FEEDING TUBE BID 09/14/20 12/06/20 cholecalciferol (vitamin D3) 50,000 unit FEEDING TUBE WK 09/14/20 12/06/20 cyanocobalamin (vitamin B-12) 500 mcg FEEDING TUBE QAM 09/14/20 12/06/20 [Vitamin B-12] folic acid 1 mg FEEDING TUBE QAM 09/14/20 12/06/20 lacosamide [Vimpat] 200 mg FEEDING TUBE Q12H 09/14/20 12/06/20 simvastatin 40 mg FEEDING TUBE QPM 09/14/20 12/06/20 zonisamide 400 mg FEEDING TUBE PM 09/14/20 12/06/20 allopurinol 300 mg FEEDING TUBE QAM 10/06/20 12/06/20 carboxymethylcellulose sodium 2 drp OPHTHALMIC (EYE) BID PRN 10/06/20 12/06/20 [Refresh] levetiracetam 1,000 mg FEEDING TUBE BID 10/06/20 12/06/20 potassium chloride 20 meq FEEDING TUBE TID 10/06/20 12/06/20 thiamine HCl (vitamin B1) 100 mg FEEDING TUBE DAILY 10/06/20 12/06/20 citalopram 10 mg FEEDING TUBE DAILY 12/06/20 12/06/20 donepezil 10 mg FEEDING TUBE DAILY 12/06/20 12/06/20 eyelid cleansers 1 pad TOPICAL TID PRN 12/06/20 12/06/20 ibuprofen 600 mg PO DAILY PRN 12/06/20 12/06/20 levothyroxine 88 mcg FEEDING TUBE DAILY 12/06/20 12/06/20 magnesium hydroxide [Milk of 30 ml PO HS PRN 12/06/20 12/06/20 Magnesia] omeprazole 40 mg FEEDING TUBE DAILY 12/06/20 12/06/20 sodium chloride 1 drp INTRANASAL QID PRN 12/06/20 12/06/20 sodium phosphates [Fleet Enema] 118 ml MI DAILY PRN 12/06/20 12/06/20 Results & Data (ED) Vital Signs Vital Signs - 24 hr 12/06/20 11:39 12/06/20 11:56 12/06/20 11:58 Temperature 36.7 C Temperature Source Oral Pulse Rate 85 63 Pulse Rate from SpO2 Sensor 63 Pulse Rhythm Regular Pulse Strength Normal Respiratory Rate 18 13 Respiratory Effort / Characteristics Non-Labored Spontaneous Respiratory Depth Normal Respiratory Pattern Regular Blood Pressure 89/59 L 121/61 Blood Pressure Mean 69 81 Blood Pressure Position Sitting Pulse Oximetry 97 99 99 Oxygen Delivery Method Room Air Room Air Sepsis Recent Fever Within 48 Hours No Sepsis New/Unexplained Change in Mental Status No Sepsis Action Taken by Nursing No Action Required 12/06/20 12:20 12/06/20 12:30 12/06/20 13:00 Temperature Temperature Source Pulse Rate 58 L 72 59 L Pulse Rate from SpO2 Sensor 66 60 Pulse Rhythm Pulse Strength Respiratory Rate 13 19 15 Respiratory Effort / Characteristics Respiratory Depth Respiratory Pattern Blood Pressure 113/63 116/60 109/60 Blood Pressure Mean 79 78 76 Blood Pressure Position Pulse Oximetry 99 98 98 Oxygen Delivery Method Sepsis Recent Fever Within 48 Hours Sepsis New/Unexplained Change in Mental Status Sepsis Action Taken by Nursing 12/06/20 13:30 Temperature Temperature Source Pulse Rate 75 Pulse Rate from SpO2 Sensor 74 Pulse Rhythm Pulse Strength Respiratory Rate 23 Respiratory Effort / Characteristics Respiratory Depth Respiratory Pattern Blood Pressure 139/76 Blood Pressure Mean 97 Blood Pressure Position Pulse Oximetry 98 Oxygen Delivery Method Sepsis Recent Fever Within 48 Hours Sepsis New/Unexplained Change in Mental Status Sepsis Action Taken by Nursing Laboratory Data Result diagrams: 12/06/20 12:20 12/06/20 12:20 Lab Results 12/06/20 12/06/20 12/06/20 Range/Units 12:20 12:20 14:00 WBC 8.38 (4.8-10.8) K/uL RBC 3.75 L (4.2-5.4) M/uL Hgb 13.2 (12.0-16.0) g/dL Hct 40.5 (37-47) % MCV 108.0 H (80-100) fL MCH 35.2 H (25-34) pg MCHC 32.6 (32-36) g/dL RDW Std Deviation 62.1 H (36.4-46.3) fL RDW Coeff of Skip 15.9 H (11.5-14.5) % Plt Count 151 (130-400) K/uL MPV 11.1 H (7.4-10.4) fL Immature Gran % (Auto) 0.2 % Neut % (Auto) 67.1 % Lymph % (Auto) 26.5 % [place] % (Auto) 5.4 % Eos % (Auto) 0.7 % Baso % (Auto) 0.1 % Reticulocyte % (Auto) 2.0 (0.5-2.0) % Neut # (Auto) 5.62 (1.4-6.5) K/uL Lymph # (Auto) 2.22 (1.2-3.4) K/uL [place] # (Auto) 0.45 (0.11-0.59) K/uL Eos # (Auto) 0.06 (0-0.5) K/uL Baso # (Auto) 0.01 (0-0.2) K/uL Reticulocyte # 0.08 (0.02-0.10) 10^6/uL Immature Gran # (Auto) 0.02 (0.00-0.02) K/uL Sodium 156 H* (136-145) mmol/L Potassium 4.1 D (3.5-5.1) mmol/L Chloride 129 H (98-107) mmol/L Carbon Dioxide 21 (21-32) mmol/L Anion Gap 5.0 (3-11) BUN 37 H (7-18) mg/dl Creatinine 0.53 L (0.6-1.2) mg/dl Est Cr Clr Drug Dosing Not Reportable Est GFR ( Amer) 109.2 Est GFR (Non-Af Amer) 94.2 BUN/Creatinine Ratio 68.9 H (10-20) Glucose 85 (70-99) mg/dl Calcium 9.3 (8.5-10.1) mg/dl Magnesium 2.3 (1.8-2.4) mg/dl Total Bilirubin 0.1 L (0.2-1) mg/dl AST 39 H (15-37) U/L ALT 49 (12-78) U/L Alkaline Phosphatase 95 (45-117) U/L Troponin I < 0.015 (0-0.045) ng/ml Total Protein 6.4 (6.4-8.2) gm/dl Albumin 3.2 L (3.4-5.0) gm/dl Globulin 3.2 (2.5-4.0) gm/dl Albumin/Globulin Ratio 1.0 (0.9-2) TSH 4.140 (0.300-4.500) uIu/ml COVID-19 Eval Order CovFluRsv at [facility] Administered Medications Dextrose (D5w) 1,000 mls @ 150 mls/hr IV .Q6H40M STA Stop: 12/06/20 19:29 Last Admin: 12/06/20 13:47 Dose: 150 mls/hr Documented by: [id number] Discontinued Medications Sodium Chloride (Nss) 500 mls @ 999 mls/hr IV .Q31M GARRET Stop: 12/06/20 12:30 Last Infusion: 12/06/20 13:11 Dose: 0 mls/hr Documented by: [id number] Admin: 12/06/20 12:40 Dose: 999 mls/hr Documented by: [id number] Sodium Chloride (Nss 1000ml) 1,000 mls @ 125 mls/hr IV .Q8H GARRET Stop: 12/06/20 19:59 Last Admin: 12/06/20 12:55 Dose: Not Given Documented by: [id number] Imaging Data Radiologist's Impression: Chest X-Ray 12/06/20 11:58 XR chest 1V portable HISTORY: weakness COMPARISON: Chest 10/06/2020. FINDINGS: No pneumothorax. No pleural effusions. The heart is top normal in size. This remains unchanged. No evidence for pulmonary edema. Electronic stimulator device is again noted within the left chest. There is a right jugular Port-A-Cath which terminates at the SVC. Patchy left basilar airspace opacity remains unchanged. This favors scarring/atelectasis. No new focal lung consolidations identified. IMPRESSION: 1. No new focal lung consolidations. 2. No change in the small left retrocardiac density. This favors scarring/atelectasis. ACT 112: Negative or not required by law. Electronically signed by: Porfirio Weber M.D. 12/06/2020 12:43 PM Discharge Plan Visit Data Chief Complaint: Abnormal Labs/Diagnostic Testing Stated Complaint: HYPERNATREMIA ED Provider: Umang Arriaga Discharge Problem: Acute hypernatremia, AMS (altered mental status) Forms Stand Alone Forms: My [facility] Prescriptions Prescriptions: No Action calcium carbonate 500 mg calcium (1,250 mg) Capsule 500 mg feeding tube BID RF: 0 simvastatin 40 mg tablet 40 mg feeding tube QPM RF: 0 zonisamide 100 mg capsule 400 mg feeding tube PM RF: 0 cyanocobalamin (vitamin B-12) [Vitamin B-12] 500 mcg Tablet 500 mcg feeding tube QAM RF: 0 bisacodyl [Dulcolax (bisacodyl)] 10 mg Suppository 10 mg MI UD PRN (Reason: Q72HRS PRN CONSTIPATION) RF: 0 folic acid 1 mg tablet 1 mg feeding tube QAM RF: 0 acetaminophen [Tylenol] 325 mg Capsule 650 mg feeding tube QID PRN (Reason: Fever Or Pain) RF: 0 cholecalciferol (vitamin D3) 1,250 mcg (50,000 unit) capsule 50,000 unit feeding tube WK RF: 0 Vimpat 200 mg Tablet 200 mg feeding tube Q12H RF: 0 thiamine HCl (vitamin B1) 100 mg Tablet 100 mg feeding tube DAILY RF: 0 potassium chloride 20 mEq/15 mL liquid 20 meq feeding tube TID RF: 0 allopurinol 300 mg tablet 300 mg feeding tube QAM RF: 0 Refresh 1 % Drops, Liquid Gel 2 drp OPHTHALMIC (EYE) BID PRN (Reason: Dry Eye(S)) RF: 0 levetiracetam 100 mg/mL solution 1,000 mg feeding tube BID RF: 0 citalopram 10 mg/5 mL Solution 10 mg feeding tube DAILY RF: 0 eyelid cleansers Pad 1 pad TOPICAL TID PRN (Reason: IRRITATION) RF: 0 sodium chloride 0.65 % Drops 1 drp INTRANASAL QID PRN (Reason: Congestion) RF: 0 levothyroxine 88 mcg tablet 88 mcg feeding tube DAILY RF: 0 magnesium hydroxide [Milk of Magnesia] 400 mg/5 mL Suspension 30 ml PO HS PRN (Reason: Constipation) RF: 0 Fleet Enema 19-7 gram/118 mL Enema 118 ml MI DAILY PRN (Reason: Constipation) RF: 0 omeprazole 20 mg Capsule,Delayed Release(Dr/Ec) 40 mg feeding tube DAILY RF: 0 ibuprofen 600 mg tablet 600 mg PO DAILY PRN (Reason: Pain) RF: 0 donepezil 10 mg tablet,disintegrating 10 mg feeding tube DAILY RF: 0
--- NOTE | 2020-12-06 13:42 | History & Physical Report ---
Date of Service December 06, 2020 Assessment & Plan (1) Acute hypernatremia: D5W @ 1.5x maintenance until Na corrects then switch to free water flushes. Consult dietary to continue her PEG feeds. NPO Discussed with dietary here and per her formula at [facility] likely she was not getting enough free water initially through her PEG with 200 ml Q4H and 250ml. Therefore will have to clarify formula on at her fci on discharge to make sure she is getting enough. (2) Macrocytic anemia: Unclear cause of this. B12 and folate previously normal. No alcohol intake. Will add reticulocyte count to further investigate. (3) Hypothyroidism: TSH WNL Continue levothyroxine (4) Depression with anxiety: Continue citalopram 10mg PO daily (5) Generalized epilepsy: Continue her usual Keppra 1g BID, Vimpat 200 mg twice daily, zonisamide 400mg QPM (6) Gout: Continue allopurinol 300mg PO daily (7) Constipation: Monitor BM (8) Severe protein-calorie malnutrition: Consult dietary for PEG feeds. Continue thiamine 100mg daily Admission and Anticipated Discharge Date Admission Date: December 06, 2020 History of Present Illness Chief Complaint: Hypernatremia Primary Care Provider: [facility] Faye Aragon is a 75-year-old female who presents to the ER from [facility] due to hypernatremia. Unable to get any history from the patient. Awake to voice but making mumbling noises only. Per ER discussion with her daughter she does note worsening altered mental state over the past 2 days. She was sent over the [facility] due to hypernatremia noted on outpatient labs. Free water through the PEG tube was increased to 250ml Q4H however her Na continued to increase. The patient had a complex significant recent hospitalization for altered mental status requiring ICU admission. I admitted this patient who was mostly obtunded with altered mental state on September 14, 2020. Her family reported generalized decline since clovis COVID-19 (although her daughter noted she did "very well" with this initially but [place] There is significant concern that the patient has been giving morphine in her fci without knowledge from her family although this does not appear to have been confirmed. She was diagnosed with ISIDRO (on lasix), UTI, hypernatremia due to poor oral intake, recent changes to citalopram/mirtazapine, possible seizures and concern for progressive dementia. Her decline appeared to be significant over that time even though she was in a fci she was very independent. Despite treatment for the hyponatremia and UTI she did not appear to improve. Follow-up CT was concerning for colitis and she was initially treated with Zosyn however C. difficile was subsequently positive and she was treated for this at [facility]. She ultimately transferred to [facility] for continuous EEG monitoring on September 19. She had one episode of a seizure while at [facility] likely due to her not receiving one of her medications as it was nonformulary here. She also underwent EGD and colonoscopy due to bright red blood per rectum requiring 1 unit blood transfu idania. Colonoscopy revealed mucosal ulceration possibly from recent enemas versus solitary rectal ulcer. There were no signs of active or recent bleeding on EGD. PEG tube was placed by IR on 09/28/2020 as she continued to not be able to eat or drink. Discharged on October 02, 2020 back to [facility]. Her sodium appears to have been stable initially at 144 on November 06, 2020. Per ER note she has stopped eating and drinking over the last few days and her sodium increased to 156 yesterday. This has been associated with worsening mental status changes. I tried calling her daughter however no answer on number provided. In the ER she was initially given a normal saline bolus of 500 mL however this was switched to D5W once her sodium level came back at 156. She is referred to medicine for admission ongoing management of hypernatremia. Allergies Allergy/AdvReac Type Severity Reaction Status Date / Time hydrocortisone Allergy Intermediate DELIRIUM Verified 12/06/20 13:36 phenobarbital Allergy Intermediate RASH Verified 12/06/20 13:36 lamotrigine Allergy Unknown RASH Verified 12/06/20 13:36 hydrocodone Allergy Unknown Verified 12/06/20 13:36 acetaminophen AdvReac Unknown GI SYMPTOMS Verified 12/06/20 13:36 Home Medications Medication Instructions Recorded Confirmed Type acetaminophen [Tylenol] 650 mg FEEDING TUBE QID PRN 09/14/20 12/06/20 History bisacodyl [Dulcolax (bisacodyl)] 10 mg MI UD PRN 09/14/20 12/06/20 History calcium carbonate 500 mg FEEDING TUBE BID 09/14/20 12/06/20 History cholecalciferol (vitamin D3) 50,000 unit FEEDING TUBE WK 09/14/20 12/06/20 History cyanocobalamin (vitamin B-12) 500 mcg FEEDING TUBE QAM 09/14/20 12/06/20 History [Vitamin B-12] folic acid 1 mg FEEDING TUBE QAM 09/14/20 12/06/20 History lacosamide [Vimpat] 200 mg FEEDING TUBE Q12H 09/14/20 12/06/20 History simvastatin 40 mg FEEDING TUBE QPM 09/14/20 12/06/20 History zonisamide 400 mg FEEDING TUBE PM 09/14/20 12/06/20 History allopurinol 300 mg FEEDING TUBE QAM 10/06/20 12/06/20 History carboxymethylcellulose sodium 2 drp OPHTHALMIC (EYE) BID PRN 10/06/20 12/06/20 History [Refresh] levetiracetam 1,000 mg FEEDING TUBE BID 10/06/20 12/06/20 History potassium chloride 20 meq FEEDING TUBE TID 10/06/20 12/06/20 History thiamine HCl (vitamin B1) 100 mg FEEDING TUBE DAILY 10/06/20 12/06/20 History citalopram 10 mg FEEDING TUBE DAILY 12/06/20 12/06/20 History donepezil 10 mg FEEDING TUBE DAILY 12/06/20 12/06/20 History eyelid cleansers 1 pad TOPICAL TID PRN 12/06/20 12/06/20 History ibuprofen 600 mg PO DAILY PRN 12/06/20 12/06/20 History levothyroxine 88 mcg FEEDING TUBE DAILY 12/06/20 12/06/20 History magnesium hydroxide [Milk of 30 ml PO HS PRN 12/06/20 12/06/20 History Magnesia] omeprazole 40 mg FEEDING TUBE DAILY 12/06/20 12/06/20 History sodium chloride 1 drp INTRANASAL QID PRN 12/06/20 12/06/20 History sodium phosphates [Fleet Enema] 118 ml MI DAILY PRN 12/06/20 12/06/20 History Past Med/Surg History Medical History Chronic cerebral ischemia Dementia Depression with anxiety Dizziness Generalized epilepsy Generalized osteoarthritis of multiple sites Gout Hereditary hemochromatosis Hypercholesteremia Hypothyroidism Peripheral neuropathy Family History Family/Other No pertinent past medical history Social History Smoking Status: Unknown if ever smoked Second Hand Exposure: No; Do You Dip or Chew Tobacco: No; Tobacco Cessation Education Requested by Patient: No Hx Alcohol Use: No Hx Substance Use: No Preferred Language: Mongolian Communication Ability: Effective Residential Subcontractor Required: No Current Living Situation: [facility] Other Information That Helps Us Care for You: No Feels Safe at Home: Yes Assistive Devices: None Review of Systems Review of Systems: Unobtainable due to cognitive status Physical Exam Constitutional: well developed and + frail appearing; + not well nourished and no acute distress Eyes: PERRL, conjunctivae normal, anicteric sclerae Respiratory: normal respiratory effort, lungs clear to auscultation Cardiovascular: RRR, no murmur, no edema Gastrointestinal (Abdomen): normal bowel sounds, soft, nontender, no hepatosplenomegaly Skin: no rashes, warm and dry Neurologic: moves all extremities, awake and + confused Psychiatric: Orientation: alert; + not oriented x 3 Eye Contact: + poor eye contact Motor Behavior: + psychomotor agitation Affect: + flat affect Thought Process: + incoherent thought process Genitourinary: no CVA tenderness Results & Data Results & Data ([facility]) Vital Signs (Past 12 Hours) Vital Signs Temp Pulse Resp BP Pulse Ox 12/06/20 12:20 58 L 13 113/63 99 12/06/20 11:58 99 12/06/20 11:56 63 13 121/61 99 12/06/20 11:39 36.7 C 85 18 89/59 L 97 Diagnostic Findings XR chest 1V portable IMPRESSION: 1. No new focal lung consolidations. 2. No change in the small left retrocardiac density. This favors sca rring/atelectasis. Medications Administered ER medications given: NSS 500 mL bolus D5W @ 80 ml/hr ECG Rate (beats per minute): 63 Rhythm: normal sinus Findings: + RBBB (incomplete) and + left axis deviation Comparison ECG Date: from (10/06/2020) Change: no significant change Code Status & VTE Plan Code Status Full - per [place] Care notes VTE Prophylaxis Plan VTE Prophylaxis will be ordered: Yes PG Care Time/CCT Total # of Minutes Spent Total Time Spent with Patient: Total time spent is greater than 50% in co ordination of care (as documented) at patient's floor/unit and/or counseling patient: Coding Level of Care Code 25243 Initial Inpt Care Lvl 3 Diagnoses Acute hypernatremia E87.0 Macrocytic anemia D53.9 Hypothyroidism E03.9 Depression with anxiety F41.8 Generalized epilepsy G40.309 Gout M10.9 Constipation K59.00 Severe protein-calorie malnutrition E43
[2020-12-06 14:30] LABS: Reticulocytes # 0.08 10^6/uL (0.02-0.10)
[2020-12-06 15:10] LABS: Influenza A virus by PCR Negative (Neg); Influenza B virus by PCR Negative (Neg); RSV by PCR Negative (Neg); SARS CoV2 RNA(COVID-19) InHosp NEGATIVE (Negative)
[2020-12-06] MEDS ORDERED: [UNRECOGNIZED DRUG - OTHER] TOP PRN (18:45)
[2020-12-06] MEDS ORDERED: ARTIFICIAL TEARS OP PRN (19:08)
[2020-12-06] MEDS: PEPTAMEN 1.5 CAL 1,000 ML BAG PEG SCH (21:04)
[2020-12-06] MEDS: TUBE FEEDING WATER FLUSH PEG SCH ×2 (21:05→21:39)
[2020-12-06] MEDS: LACOSAMIDE 50 MG TABLET PO SCH (21:06)
[2020-12-06] MEDS: CALCIUM CARBONATE 1,250 MG/5 ML UDC PEG SCH (21:08)
[2020-12-06] MEDS: SIMVASTATIN 40 MG TAB PEG SCH (21:09)
[2020-12-06] MEDS: levETIRAcetam ORAL SOLN 100MG/ML PEG SCH (21:11)
[2020-12-06] MEDS: ACETAMINOPHEN SUSP 325 MG/10.15 ML UDC PEG PRN (21:12)
[2020-12-06 22:44] LABS: Appearance Urine Turbid (Clear); Bacteria Urine Automated Negative (Negative); Bilirubin Urine Negative (Negative); Blood Urine 3+ (Negative); Color Urine Dark Yellow; Epithelial Cell Urine Auto >30 /lpf (0-5); Glucose Urine UA Negative (Negative); Ketones Urine Negative (Negative); Leukocyte Esterase Urine 2+ (Negative); Nitrite Urine Negative (Negative); Protein Urine 3+ (Negative); RBC Urine Automated >30 /hpf (0-4); Specific Gravity Urine 1.031 (1.000-1.030); Urobilinogen Urine Negative (Negative); WBC Urine Automated >30 /hpf (0-5)
[2020-12-06 23:23] LABS: BUN Creatinine Ratio 56.8 (10-20); Calcium 8.4 mg/dl (8.5-10.1); Creatinine Clr Calc Pharmacy 70.5 ml/min; Est GFR (African American) 109.9; Est GFR (Non-African American) 94.8
[2020-12-07] MEDS: TUBE FEEDING WATER FLUSH PEG SCH ×6 (00:14→20:00)
[2020-12-07] MEDS: ACETAMINOPHEN SUSP 325 MG/10.15 ML UDC PEG PRN (03:36)
[2020-12-07 05:29] LABS: Basophils # (auto) 0.02 K/uL (0-0.2); Basophils % (auto) 0.3 %; Eosinophils # (auto) 0.06 K/uL (0-0.5); Eosinophils % (auto) 0.8 %; Hematocrit (blood only) 34.5 % (37-47); Hemoglobin 11.4 g/dL (12.0-16.0); Immature Granulocytes # (auto) 0.03 K/uL (0.00-0.02); Immature Granulocytes % (auto) 0.4 %; Lymphocytes # (auto) 2.18 K/uL (1.2-3.4); Lymphocytes % (auto) 30.8 %; Mean Corpuscular Hemoglobin 35.4 pg (25-34); Mean Corpuscular Volume 107.1 fL (80-100); Mean Platelet Volume 11.2 fL (7.4-10.4); Monocytes % (auto) 8.5 %; Neutrophils # (auto) 4.18 K/uL (1.4-6.5); Neutrophils % (auto) 59.2 %; Platelet Count 120 K/uL (130-400); RDW Coefficient of Variation 15.5 % (11.5-14.5); RDW Standard Deviation 60.5 fL (36.4-46.3); Red Blood Count 3.22 M/uL (4.2-5.4); White Blood Count 7.07 K/uL (4.8-10.8)
[2020-12-07] MEDS: LEVOTHYROXINE SODIUM 88 MCG TABLET PEG SCH (05:45)
[2020-12-07 05:46] LABS: BUN Creatinine Ratio 74.9 (10-20); Calcium 8.2 mg/dl (8.5-10.1); Creatinine Clr Calc Pharmacy 91.6 ml/min; Est GFR (African American) 119.8; Est GFR (Non-African American) 103.3; Potassium 3.8 mmol/L (3.5-5.1)
--- NOTE | 2020-12-07 06:56 | Electrocardiogram Report ---
Test Reason : Blood Pressure : / mmHG Vent. Rate : 063 BPM Atrial Rate : 063 BPM P-R Int : 144 ms QRS Dur : 108 ms QT Int : 438 ms P-R-T Axes : 058 -39 038 degrees QTc Int : 448 ms Poor data quality, interpretation may be adversely affected Normal sinus rhythm Left axis deviation Incomplete right bundle branch block Inferior infarct , age undetermined Abnormal ECG When compared with ECG of 06-OCT-2020 13:58, Less artifact is now present Confirmed by Miller Shepard ([id number]) on 12/07/2020 6:56:27 AM Referred By: Confirmed By:Miller Shepard
[2020-12-07] MEDS: LACOSAMIDE 50 MG TABLET PO SCH ×2 (09:08→21:42)
[2020-12-07] MEDS: CALCIUM CARBONATE 1,250 MG/5 ML UDC PEG SCH ×2 (09:10→21:43)
[2020-12-07] MEDS: CYANOCOBALAMIN 500 MCG TABLET (VITAMIN B-12) PEG SCH (09:10)
[2020-12-07] MEDS: FOLIC ACID 1 MG TAB PEG SCH (09:10)
[2020-12-07] MEDS: DONEPEZIL HCL 10 MG TAB PEG SCH (09:10)
[2020-12-07] MEDS: CITALOPRAM 20 MG TAB PEG SCH (09:10)
[2020-12-07] MEDS: allopurinoL 300 MG TAB PEG SCH (09:10)
[2020-12-07] MEDS: LANSOPRAZOLE 15 MG SOLTAB PEG SCH (09:10)
[2020-12-07] MEDS: levETIRAcetam ORAL SOLN 100MG/ML PEG SCH ×2 (09:11→21:43)
[2020-12-07] MEDS: THIAMINE HCL 100 MG TAB PEG SCH (09:11)
--- NOTE | 2020-12-07 10:37 | Gastrointestinal Consultation ---
Date of Consultation December 07, 2020 Assessment & Plan (1) Acute hypernatremia: (2) AMS (altered mental status): (3) Cirrhosis: Pt is a 75 y/o female resident of [facility] w hx of dementia, seizure disorder currently admitted for acute hypernatremia ? secondary to inadequate water flushes from G tube, and AMS. Noted cirrhotic liver on CT scan 2 months ago. Plt low 120, normal INR. No jaundice, asterixis or ascites noted on exam, no GI bleeding. Tbili too low for MELD calculation (if using value of 0.5, MELD is 7). - Defer to primary team on hypernatremia management - Recommend checking Ammonia level and starting Lactulose for possible hepatic encephalopathy if level is high - Complete infection workup: CXR unremarkable, Urine culture pending. Consider adding blood cx, repeat Head CT - Given her advanced age and dementia, also given no alex decompensation of cirrhosis would defer further workup for her cirrhosis - GI sign off; pls recall prn Supervising Physician Co-Signing Physician Notes I saw and evaluated the patient. Unfortunately given her history of dementia she is unable to provide any historical information this afternoon. We were consulted for evaluation of an abnormal CT scan from a prior admission in September. It appears she had nodularity of her liver suspicious for cirrhosis. The patient has been admitted for mental status changes and hypernatremia. Physical examination Thin female No ascites No caput medusa No spider nevi on skin No scleral icterus Impression: Patient admitted with a history of dementia complicated by hypernatremia and poor mentation. Given her underlying dementia I am not certain if further evaluation for underlying liver disease would be beneficial at the present time. She does not appear to have any evidence of synthetic function nor obvious signs of hepatic failure. Given this I would not recommend further evaluation from our standpoint at the present time. Please consult our service should any questions or concerns arise during the remainder of her admission. perhaps it would be beneficial to have the patient and her family have a discussion with palliative medicine given her advanced dementia History of Present Illness Reason for Consultation: Cirrhosis on previous CT scan , confusion Requesting Physician: Dr. Nathan Roque Attending Physician: Dr. Gabriela Diaz History of Present Illness Pt is a 75 y/o female resident of [facility] who presented w hypernatremia and AMS for last 2 days. I was unable to obtain history from pt, records reviewed. Pt hx of dementia, seizure disorder, on G tube feeding and water flushes (PEG placed by IR 09/2020), hx of COVID 19 infection (repeat negative), hx of Cdiff. She was admitted at [facility] 09/2020, had EGD, colonoscopy while admitted there for GI bleeding which showed erythematous duodenum, ? rectal ulcer and internal hemorrhoids. Labs showed mild anemia H/H 11/34, no leukocytosis, mild thrombocytopenia plt 120, BUN/Cr 30/1.4. INR 1.1. LFTs normal. CXR unremarkable. Urine culture pending. CT abd/pelvis w contrast from 09/2020 w/ signs of cirrhosis w/o ascites. I don't see in her records that she's established w GI or Hepatology for cirrhosis care. Allergies Allergy/AdvReac Type Severity Reaction Status Date / Time hydrocortisone Allergy Intermediate DELIRIUM Verified 12/06/20 13:36 phenobarbital Allergy Intermediate RASH Verified 12/06/20 13:36 lamotrigine Allergy Unknown RASH Verified 12/06/20 13:36 hydrocodone Allergy Unknown Verified 12/06/20 13:36 acetaminophen AdvReac Unknown GI SYMPTOMS Verified 12/06/20 13:36 Home Medications Medication Instructions Recorded Confirmed Type acetaminophen [Tylenol] 650 mg FEEDING TUBE QID PRN 09/14/20 12/06/20 History bisacodyl [Dulcolax (bisacodyl)] 10 mg [place] UD PRN 09/14/20 12/06/20 History calcium carbonate 500 mg FEEDING TUBE BID 09/14/20 12/06/20 History cholecalciferol (vitamin D3) 50,000 unit FEEDING TUBE WK 09/14/20 12/06/20 History cyanocobalamin (vitamin B-12) 500 mcg FEEDING TUBE QAM 09/14/20 12/06/20 History [Vitamin B-12] folic acid 1 mg FEEDING TUBE QAM 09/14/20 12/06/20 History lacosamide [Vimpat] 200 mg FEEDING TUBE Q12H 09/14/20 12/06/20 History simvastatin 40 mg FEEDING TUBE QPM 09/14/20 12/06/20 History zonisamide 400 mg FEEDING TUBE PM 09/14/20 12/06/20 History allopurinol 300 mg FEEDING TUBE QAM 10/06/20 12/06/20 History carboxymethylcellulose sodium 2 drp OPHTHALMIC (EYE) BID PRN 10/06/20 12/06/20 H istory [Refresh] levetiracetam 1,000 mg FEEDING TUBE BID 10/06/20 12/06/20 History potassium chloride 20 meq FEEDING TUBE TID 10/06/20 12/06/20 History thiamine HCl (vitamin B1) 100 mg FEEDING TUBE DAILY 10/06/20 12/06/20 History citalopram 10 mg FEEDING TUBE DAILY 12/06/20 12/06/20 History donepezil 10 mg FEEDING TUBE DAILY 12/06/20 12/06/20 History eyelid cleansers 1 pad TOPICAL TID PRN 12/06/20 12/06/20 History ibuprofen 600 mg PO DAILY PRN 12/06/20 12/06/20 History levothyroxine 88 mcg FEEDING TUBE DAILY 12/06/20 12/06/20 History magnesium hydroxide [Milk of 30 ml PO HS PRN 12/06/20 12/06/20 History Magnesia] omeprazole 40 mg FEEDING TUBE DAILY 12/06/20 12/06/20 History sodium chloride 1 drp INTRANASAL QID PRN 12/06/20 12/06/20 History sodium phosphates [Fleet Enema] 118 ml [place] DAILY PRN 12/06/20 12/06/20 History Patient History Medical History Chronic cerebral ischemia Dementia Depression with anxiety Dizziness Generalized epilepsy Generalized osteoarthritis of multiple sites Gout Hereditary hemochromatosis Hypercholesteremia Hypothyroidism Peripheral neuropathy Family History Family/Other No pertinent past medical history Social History Smoking Status: Unknown if ever smoked Second Hand Exposure: No; Do You Dip or Chew Tobacco: No; Tobacco Cessation Education Requested by Patient: No Hx Alcohol Use: No Hx Substance Use: No Preferred Language: Tajik Communication Ability: Impaired Automatic 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 Required: No marital status: Unknown Current Living Situation: Assisted Other Information That Helps Us Care for You: No Feels Safe at Home: Yes Assistive Devices: None Review of Systems Review of Systems: Unobtainable due to cognitive status Physical Exam Constitutional: + thin, + frail appearing and comfortable Eyes: PERRL, conjunctivae normal, anicteric sclerae ENMT: external ear and nose normal, oropharynx normal Respiratory: no respiratory distress and does not use accessory muscles Auscultation: + diminished lung sounds Cardiovascular: RRR, no murmur, no edema Gastrointestinal (Abdomen): G tube in place, soft, hypoactive, no signs of distress or tenderness on palpation Skin: no rashes, warm and dry no jaundice Neurologic: Motor/Sensory: no asterixis Psychiatric: Confused, not following commands or conversing Lymphatic: no lymphedema Results & Data ([facility]) Vital Signs (Past 12 Hours) Vital Signs Temp Pulse Pulse Resp BP Pulse Ox 12/07/20 08:04 36.6 C 60 20 121/71 99 12/07/20 07:12 55 L 12/07/20 03:39 36.5 C 57 L 19 120/74 98 12/06/20 23:13 36.7 C 80 18 146/81 H 96
[2020-12-07] MEDS ORDERED: DEXTROSE 5% 1,000 ML IV SCH (10:45)
[2020-12-07] MEDS ORDERED: ZONISAMIDE 100 MG CAPSULE PO SCH (21:00)
--- NOTE | 2020-12-07 21:14 | Hospitalist Progress Note ---
Date of Service December 07, 2020 Assessment & Plan (1) Acute hypernatremia: Sodium has improved Now mid 150s Will continue D5W Consult dietary to continue her PEG feeds. NPO Discussed with dietary here and per her formula at [facility] likely she was not getting enough free water initially through her PEG with 200 ml Q4H and 250ml. Therefore will have to clarify formula on at her [facility] on discharge to make sure she is getting enough. (2) Macrocytic anemia: Unclear cause of this. B12 and folate previously normal. No alcohol intake. Will add reticulocyte count to further investigate. (3) Hypothyroidism: TSH WNL Continue levothyroxine (4) Depression with anxiety: Continue citalopram 10mg PO daily (5) Generalized epilepsy: Continue her usual Keppra 1g BID, Vimpat 200 mg twice daily, zonisamide 400mg QPM (6) Gout: Continue allopurinol 300mg PO daily (7) Constipation: Monitor BM (8) Severe protein-calorie malnutrition: Consult dietary for PEG feeds. Continue thiamine 100mg daily (9) AMS (altered mental status): Patient likely has delirium. Will continue to monitor. May be due to (most likely) hypernatremia and fluid deficit. Her ammonia level is mildly elevated. will add lactulose. will monitor her blood work tomorrow and reassess. Admission and Anticipated Discharge Date Admission Date: December 06, 2020 Subjective Patient is a poor historian. Review of Systems Review of Systems: Unobtainable due to cognitive status Physical Exam Physical Exam: Constitutional: well developed and + frail appearing; + not well nourished and no acute distress Eyes: PERRL, conjunctivae normal, anicteric sclerae Respiratory: normal respiratory effort, lungs clear to auscultation Cardiovascular: RRR, no murmur, no edema Gastrointestinal (Abdomen): normal bowel sounds, soft, nontender, no hepatosplenomegaly Skin: no rashes, warm and dry Neurologic: moves all extremities, awake and + confused Psychiatric: Orientation: alert; + not oriented x 3 Affect: + flat affect Thought Process: + incoherent thought process Genitourinary: no CVA tenderness Results & Data Results & Data ([facility]) Vital Signs (Past 12 Hours) Vital Signs Temp Pulse Pulse Resp BP Pulse Ox 12/07/20 19:15 37 C 59 L 18 117/62 98 12/07/20 15:31 37.0 C 52 L 19 105/61 96 12/07/20 14:59 55 L 12/07/20 12:04 36.4 C L 88 18 107/57 L 97 PG Care Time/CCT Total # of Minutes Spent Total Time Spent with Patient: Total time spent is greater than 50% in coordination of care (as documented) at patient's floor/unit and/or counseling patient: Coding Level of Care Code 88697 Subseq Hosp Care Lvl 3 Diagnoses Acute hypernatremia E87.0 Macrocytic anemia D53.9 Hypothyroidism E03.9 Depression with anxiety F41.8 Generalized epilepsy G40.309 Gout M10.9 Constipation K59.00 Severe protein-calorie malnutrition E43 AMS (altered mental status) R41.82 Time Spent (min) 35
[2020-12-07] MEDS: LACTULOSE SYRUP 30 GM/45 ML UDP PO SCH (21:43)
[2020-12-07] MEDS: SIMVASTATIN 40 MG TAB PEG SCH (21:43)
[2020-12-07] MEDS: PEPTAMEN 1.5 CAL 1,000 ML BAG PEG SCH (22:16)
[2020-12-08] MEDS: TUBE FEEDING WATER FLUSH PEG SCH ×7 (00:50→23:57)
[2020-12-08 05:40] LABS: Hematocrit (blood only) 35.3 % (37-47); Mean Corpuscular Hemoglobin 35.3 pg (25-34); Mean Corpuscular Volume 103.8 fL (80-100); Mean Platelet Volume 10.8 fL (7.4-10.4); Platelet Count 128 K/uL (130-400); RDW Standard Deviation 56.6 fL (36.4-46.3); White Blood Count 7.06 K/uL (4.8-10.8)
[2020-12-08] MEDS: LEVOTHYROXINE SODIUM 88 MCG TABLET PEG SCH (05:55)
[2020-12-08 06:32] LABS: Albumin Level 2.7 gm/dl (3.4-5.0); BUN Creatinine Ratio 66.6 (10-20); Bilirubin,Total 0.2 mg/dl (0.2-1); Calcium 8.2 mg/dl (8.5-10.1); Creatinine Clr Calc Pharmacy 124.5 ml/min; Est GFR (African American) 125.1; Globulin 2.7 gm/dl (2.5-4.0); Potassium 3.1 mmol/L (3.5-5.1); Total Protein 5.4 gm/dl (6.4-8.2)
[2020-12-08] MEDS: levETIRAcetam ORAL SOLN 100MG/ML PEG SCH ×2 (07:55→20:06)
[2020-12-08] MEDS: allopurinoL 300 MG TAB PEG SCH (07:56)
[2020-12-08] MEDS: CYANOCOBALAMIN 500 MCG TABLET (VITAMIN B-12) PEG SCH (07:56)
[2020-12-08] MEDS: CALCIUM CARBONATE 1,250 MG/5 ML UDC PEG SCH ×2 (07:56→20:06)
[2020-12-08] MEDS: CITALOPRAM 20 MG TAB PEG SCH (07:57)
[2020-12-08] MEDS: THIAMINE HCL 100 MG TAB PEG SCH (07:57)
[2020-12-08] MEDS: LACOSAMIDE 50 MG TABLET PO SCH ×2 (07:57→20:06)
[2020-12-08] MEDS: FOLIC ACID 1 MG TAB PEG SCH (07:57)
[2020-12-08] MEDS: DONEPEZIL HCL 10 MG TAB PEG SCH (07:58)
[2020-12-08] MEDS: LACTULOSE SYRUP 30 GM/45 ML UDP PO SCH (07:58)
[2020-12-08] MEDS: LANSOPRAZOLE 15 MG SOLTAB PEG SCH (07:58)
--- NOTE | 2020-12-08 11:03 | Neurology Consultation ---
Date of Consultation December 08, 2020 Assessment & Plan (1) AMS (altered mental status): Faye Aragon is a 75 yo woman with PMH of HLD, SVID, neuropathy c/b gait dysfunction, hypothyroidism, epilepsy/PNES, conversion disorder, depression/anxiety, memory issues/dementia, hemochromatosis and gout who presents to [facility] after worsening of AMS in the setting of UTI and hypernatremia. # AMS: most likely due to combination of UTI, ISIDRO/uremia, hypernatremia/multiple electrolyte abnormalities in the setting of infection in the setting of poor baseline mental status/possible dementia. Prior EEG did show 2 possible generalized spike-slow wave discharges with bifrontal predominance, c/w her h/o epilepsy. - MRI brain w/o to r/o stroke or other abnormality given significant progression over last few months (will need to have VNS rep here to turn off/on VNS during the MRI) - continue to treat infection and electrolyte abnormalities, as well as looking into cirrhosis per primary team - delirium precautions, lights on during day/off at night, frequent re- orientation, positive reminders of her boyfriend at the nursing facility - continue vimpat 200mg bid, increase keppra to 1500mg bid (ordered) - decrease zonegran to 300mg qhs given underlying cirrhosis/hepatic and renal impairment (goal would be to potentially come off of this and transition to topamax instead; she has neuro f/u in a little over one week where we can work this out) - have LP with cell counts, glucose, protein, CSF biofire, autoimmune encephalitis panel ([facility] send out), RT QUIC (send out), and CSF VDRL obtained when able to Thank you for this interesting consult. Plan of care discussed with primary team. Please call or text with questions. (2) Cirrhosis: (3) Macrocytic anemia: (4) Acute hypernatremia: (5) Seizure disorder: (6) Dementia: History of Present Illness Attending Physician: Nathan Roque History of Present Illness Faye Aragon is a 75 yo woman with PMH of HLD, SVID, neuropathy c/b gait dysfunction, hypothyroidism, epilepsy/PNES, conversion disorder, depression/anxiety, memory issues/dementia, hemochromatosis and gout who presents to [facility] after worsening of AMS in the setting of UTI and hypernatremia. She initially p/t [facility] on 12/05/20 in the setting of hypernatremia and ongoing c onfusion. Labs at that time notable for WBC 5.99, hemoglobin 12.4 with MCV 106.3, platelets 152, sodium 156, potassium 132, chloride 128, BUN 38, creatinine 0.47, GFR 98, glucose 102, calcium 9.2, iron 147, transferrin low at 152, ferritin 282.6, LFTs within normal, albumin low at 2.8, LDL 35, TSH within normal, UA showed pyuria and hematuria but no clear infection but urine culture is growing gram-negative bacilli. Keppra level low at 9.4, Covid negative. CXR no infection. On examination, she would open eyes to voice and groan but no meaningful conversation otherwise. Had waxy flexibility in BUEs, would not move BLEs or follow commands. Allergies Allergy/AdvReac Type Severity Reaction Status Date / Time hydrocortisone Allergy Intermediate DELIRIUM Verified 12/06/20 13:36 phenobarbital Allergy Intermediate RASH Verified 12/06/20 13:36 lamotrigine Allergy Unknown RASH Verified 12/06/20 13:36 hydrocodone Allergy Unknown Verified 12/06/20 13:36 acetaminophen AdvReac Unknown GI SYMPTOMS Verified 12/06/20 13:36 Home Medications Medication Instructions Recorded Confirmed Type acetaminophen [Tylenol] 650 mg FEEDING TUBE QID PRN 09/14/20 12/06/20 History bisacodyl [Dulcolax (bisacodyl)] 10 mg [place] UD PRN 09/14/20 12/06/20 History calcium carbonate 500 mg FEEDING TUBE BID 09/14/20 12/06/20 History cholecalciferol (vitamin D3) 50,000 unit FEEDING TUBE WK 09/14/20 12/06/20 History cyanocobalamin (vitamin B-12) 500 mcg FEEDING TUBE QAM 09/14/20 12/06/20 History [Vitamin B-12] folic acid 1 mg FEEDING TUBE QAM 09/14/20 12/06/20 History lacosamide [Vimpat] 200 mg FEEDING TUBE Q12H 09/14/20 12/06/20 History simvastatin 40 mg FEEDING TUBE QPM 09/14/20 12/06/20 History zonisamide 400 mg FEEDING TUBE PM 09/14/20 12/06/20 History allopurinol 300 mg FEEDING TUBE QAM 10/06/20 12/06/20 History carboxymethylcellulose sodium 2 drp OPHTHALMIC (EYE) BID PRN 10/06/20 12/06/20 History [Refresh] levetiracetam 1,000 mg FEEDING TUBE BID 10/06/20 12/06/20 History potassium chloride 20 meq FEEDING TUBE TID 10/06/20 12/06/20 History thiamine HCl (vitamin B1) 100 mg FEEDING TUBE DAILY 10/06/20 12/06/20 History citalopram 10 mg FEEDING TUBE DAILY 12/06/20 12/06/20 History donepezil 10 mg FEEDING TUBE DAILY 12/06/20 12/06/20 History eyelid cleansers 1 pad TOPICAL TID PRN 12/06/20 12/06/20 History ibuprofen 600 mg PO DAILY PRN 12/06/20 12/06/20 History levothyroxine 88 mcg FEEDING TUBE DAILY 12/06/20 12/06/20 History magnesium hydroxide [Milk of 30 ml PO HS PRN 12/06/20 12/06/20 History Magnesia] omeprazole 40 mg FEEDING TUBE DAILY 12/06/20 12/06/20 History sodium chloride 1 drp INTRANASAL QID PRN 12/06/20 12/06/20 History sodium phosphates [Fleet Enema] 118 ml [place] DAILY PRN 12/06/20 12/06/20 History Patient History Medical History Chronic cerebral ischemia Dementia Depression with anxiety Dizziness Generalized epilepsy Generalized osteoarthritis of multiple sites Gout Hereditary hemochromatosis Hypercholesteremia Hypothyroidism Peripheral neuropathy Family History Family/Other No pertinent past medical history Social History Smoking Status: Unknown if ever smoked Second Hand Exposure: No; Do You Dip or Chew Tobacco: No; Tobacco Cessation Education Requested by Patient: No Hx Alcohol Use: No Hx Substance Use: No Preferred Language: Zambian Communication Ability: Impaired 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 CV: RRR, no peripheral edema PULM: Nonlabored respirations on room air. Neuro Exam: MS: Drowsy, arousable to noxious stimuli and voice. Non-verbal, did not answer any orientation questions or follow commands. Inattentive. Cognition and memory grossly impaired. Would groan to questions but not answer. CN: BTT. PERRLA OU. Eyes midline with no gaze preference. Facial muscles full and symmetric. MOTOR: BUEs antigravity without drift (had component of waxy flexibility to them), BLEs antigravity with immediate drift REFLEXES: 1+ at biceps, triceps, brachioradialis, 1+ patella and Achilles bilaterally. Flexor plantar responses bilaterally. SENSORY: Withdraws/grimaces/groans to noxious stimuli throughout. COORDINATION: unable to assess 2/2 mental status GAIT: deferred given physical/mental status Results & Data ([facility]) Vital Signs (Past 12 Hours) Vital Signs Temp Pulse Pulse Resp BP Pulse Ox 12/08/20 08:00 60 12/08/20 07:49 36.6 C 64 16 116/68 98 12/08/20 03:11 36.5 C 69 20 135/78 93 12/07/20 23:16 36.5 C 74 20 146/68 H 92 12/07/20 23:08 60 PG Care Time/CCT Total # of Minutes Spent Total Time Spent with Patient: Total time spent is greater than 50% in coordination of care (as documented) at patient's floor/unit and/or counseling patient: Coding Level of Care Code 26917 Initial Inpt Care Lvl 3 Diagnoses AMS (altered mental status) R41.82 Cirrhosis K74.60 Macrocytic anemia D53.9 Acute hypernatremia E87.0 Seizure disorder G40.909 Dementia F03.91 Dementia behavioral disturbance: with behavioral disturbance Dementia type: unspecified type (1) Dementia Dementia behavioral disturbance: with behavioral disturbance Dementia type: unspecified type Qualified Code(s): F03.91 - Unspecified dementia with behavioral disturbance
[2020-12-08] MEDS: POTASSIUM CHLORIDE 40 MEQ in D5W AND 1/2NSS 1,000 ML/1,000 ML BAG IV SCH ×2 (11:24→20:56)
[2020-12-08] MEDS: SIMVASTATIN 40 MG TAB PEG SCH (20:06)
[2020-12-08] MEDS: ZONISAMIDE 100 MG CAPSULE PO SCH (20:07)
[2020-12-08] MEDS: PEPTAMEN 1.5 CAL 1,000 ML BAG PEG SCH (21:19)
--- NOTE | 2020-12-08 23:07 | Hospitalist Progress Note ---
Date of Service December 08, 2020 Assessment & Plan (1) Acute hypernatremia: Sodium has improved Now 144. Chloride remains elevated. Will continue IVF, D5W half normal saline and will monitor repeat sodium. Consult dietary to continue her PEG feeds. NPO Discussed with dietary here and per her formula at [facility] likely she was not getting enough free water initially through her PEG with 200 ml Q4H and 250ml. Therefore will have to clarify formula on at her skilled nursing on discharge to make sure she is getting enough. (2) AMS (altered mental status): Patient likely has delirium. Will continue to monitor. May be due to (most likely) hypernatremia and fluid deficit. Her ammonia level was mildly elevated. Improved with lactulose. Patient also has dirty UA, however this was treated before and no change in mental staus. May consider trreating this. Consulted Neruor: plan for LP and MRI likely on Thursday. will need automotive leasing sales representative to turn off vagl nerve stimulator for MRI. May consider workup for syphilis as well. D/W daughter, will try to rule out other causes of her delirium and try to maintain a normal sodium level while she is back in [facility]. Daughter would like to hold off palliative care, until all causes ruled out and patient has been euvolemic for a few months. (3) Macrocytic anemia: Unclear cause of this. B12 and folate previously normal. No alcohol intake. Will add reticulocyte count to further investigate. (4) Hypothyroidism: TSH WNL Continue levothyroxine (5) Depression with anxiety: Continue citalopram 10mg PO daily (6) Generalized epilepsy: Continue her usual Keppra 1g BID, Vimpat 200 mg twice daily, zonisamide 400mg QPM (7) Gout: Continue allopurinol 300mg PO daily (8) Constipation: Monitor BM (9) Severe protein-calorie malnutrition: Consult dietary for PEG feeds. Continue thiamine 100mg daily Admission and Anticipated Discharge Date Admission Date: December 06, 2020 Subjective Patient is a poor historian. No complaints. Had extensive conversation with daughter. She began to deteriorate abut 1 month after diagnosis of COVID. Review of Systems Review of Systems: All systems reviewed & are unremarkable except as noted in HPI & below Physical Exam Physical Exam: Constitutional: well developed and + frail appearing; + not well nourished and no acute distress Eyes: PERRL, conjunctivae normal, anicteric sclerae Respiratory: normal respiratory effort, lungs clear to auscultation Cardiovascular: RRR, no murmur, no edema Gastrointestinal (Abdomen): normal bowel sounds, soft, nontender, no hepatosplenomegaly/ peg tube noted Skin: no rashes, warm and dry Neurologic: moves all extremities, awake and + confused Psychiatric: Affect: + flat affect Thought Process: + incoherent thought process Genitourinary: no CVA tenderness Results & Data Results & Data ([facility]) Vital Signs (Past 12 Hours) Vital Signs Temp Pulse Pulse Resp BP BP Pulse Ox 12/08/20 23:06 36.6 C 71 20 131/70 98 12/08/20 21:39 36.9 C 62 10 L 131/62 99 12/08/20 15:19 36.5 C 57 L 16 118/68 98 12/08/20 15:09 53 L 12/08/20 11:26 36.9 C 63 16 127/55 L 95 PG Care Time/CCT Total # of Minutes Spent Total Time Spent with Patient: Total time spent is greater than 50% in coordination of care (as documented) at patient's floor/unit and/or counseling patient: Prolonged Care Time Prolonged Care Time: Yes Total Prolonged Care Time: 65 9:55 to 11:00 Coding Level of Care Code 38102 Subseq Hosp Care Lvl 3 Diagnoses Acute hypernatremia E87.0 AMS (altered mental status) R41.82 Macrocytic anemia D53.9 Hypothyroidism E03.9 Depression with anxiety F41.8 Generalized epilepsy G40.309 Gout M10.9 Constipation K59.00 Severe protein-calorie malnutrition E43 Additional Codes Prolonged Care Time - Prolonged Care Time: Yes ([id number]) Time Spent (min) 65
[2020-12-09] MEDS: TUBE FEEDING WATER FLUSH PEG SCH ×5 (03:44→19:35)
[2020-12-09] MEDS: POTASSIUM CHLORIDE 40 MEQ in D5W AND 1/2NSS 1,000 ML/1,000 ML BAG IV SCH (05:00)
[2020-12-09] MEDS: LEVOTHYROXINE SODIUM 88 MCG TABLET PEG SCH (06:17)
[2020-12-09 07:20] LABS: Hematocrit (blood only) 34.6 % (37-47); Hemoglobin 11.7 g/dL (12.0-16.0); Mean Corpuscular Hemoglobin 34.5 pg (25-34); Mean Corpuscular Hgb Conc 33.8 g/dL (32-36); Mean Corpuscular Volume 102.1 fL (80-100); Mean Platelet Volume 11.3 fL (7.4-10.4); Platelet Count 119 K/uL (130-400); RDW Coefficient of Variation 14.9 % (11.5-14.5); RDW Standard Deviation 55.1 fL (36.4-46.3); Red Blood Count 3.39 M/uL (4.2-5.4); White Blood Count 5.48 K/uL (4.8-10.8)
[2020-12-09 07:38] LABS: BUN Creatinine Ratio 43.5 (10-20); Calcium 8.1 mg/dl (8.5-10.1); Creatinine Clr Calc Pharmacy 166.7 ml/min; Est GFR (Non-African American) 119.1; Potassium 4.1 mmol/L (3.5-5.1)
[2020-12-09] MEDS ORDERED: ERGOCALCIFEROL 50,000 UNITS 1250 MCG CAP PO SCH (09:00)
[2020-12-09] MEDS: levETIRAcetam ORAL SOLN 100MG/ML PEG SCH ×2 (09:10→20:10)
[2020-12-09] MEDS: LANSOPRAZOLE 15 MG SOLTAB PEG SCH (09:10)
[2020-12-09] MEDS: LACOSAMIDE 50 MG TABLET PO SCH ×2 (09:11→19:36)
[2020-12-09] MEDS: CITALOPRAM 20 MG TAB PEG SCH (09:11)
[2020-12-09] MEDS: DONEPEZIL HCL 10 MG TAB PEG SCH (09:11)
[2020-12-09] MEDS: CALCIUM CARBONATE 1,250 MG/5 ML UDC PEG SCH ×2 (09:11→20:10)
[2020-12-09] MEDS: THIAMINE HCL 100 MG TAB PEG SCH (09:11)
[2020-12-09] MEDS: allopurinoL 300 MG TAB PEG SCH (09:12)
[2020-12-09] MEDS: FOLIC ACID 1 MG TAB PEG SCH (09:12)
[2020-12-09] MEDS: CYANOCOBALAMIN 500 MCG TABLET (VITAMIN B-12) PEG SCH (09:12)
--- NOTE | 2020-12-09 09:21 | Neurology Progress Note ---
Date of Service December 09, 2020 Assessment & Plan (1) AMS (altered mental status): Faye Aragon is a 75 yo woman with PMH of HLD, SVID, neuropathy c/b gait dysfunction, hypothyroidism, epilepsy/PNES, conversion disorder, depression/anxiety, memory issues/dementia, hemochromatosis and gout who p resents to [facility] after worsening of AMS in the setting of UTI and hypernatremia. # AMS: most likely due to combination of UTI, ISIDRO/uremia, hypernatremia/multiple electrolyte abnormalities in the setting of infection in the setting of poor baseline mental status/possible dementia. Prior EEG did show 2 possible generalized spike-slow wave discharges with bifrontal predominance, c/w her h/o epilepsy. - MRI brain w/o to r/o stroke or other abnormality given significant progression over last few months (will need to have VNS rep here to turn off/on VNS during the MRI) - continue to treat infection and electrolyte abnormalities, as well as looking into cirrhosis as per primary team - delirium precautions, lights on during day/off at night, frequent re- orientation, positive reminders of her boyfriend at the nursing facility - continue vimpat 200mg bid, keppra 1500mg bid, zonegran 300mg qhs - will continue wean off zonegran as an outpatient given underlying cirrhosis/h epatic and renal impairment (she has neuro f/u in a little over one week where we can work this out) - have LP with cell counts, glucose, protein, CSF biofire, autoimmune encephalitis panel ([facility] send out), RT QUIC (send out), and CSF VDRL obtained when able to - would see if speech could re-evaluate need for PEG tube this admission as she is much more alert currently Thank you for this interesting consult. Plan of care discussed with primary team. Please call or text with questions. (2) Cirrhosis: (3) Macrocytic anemia: (4) Acute hypernatremia: (5) Seizure disorder: (6) Dementia: Admission and Anticipated Discharge Date Admission Date: December 06, 2020 Subjective NAEs overnight. Keppra dose increased given low levels at admission, zonegran taper started given cirrhosis. More alert this morning (best I've seen her since August 2020), able to converse somewhat and intermittently follow commands. Endorses intermittent dizziness. Would like to try some PO. Review of Systems Review of Systems: Unobtainable due to cognitive status Results & Data ([facility]) Vital Signs (Past 12 Hours) Vital Signs Temp Pulse Pulse Resp BP Pulse Ox 12/09/20 07:25 37.1 C 60 20 110/63 97 12/09/20 04:07 36.5 C 65 20 139/74 96 12/08/20 23:06 36.6 C 71 20 131/70 98 12/08/20 22:23 79 12/08/20 21:39 36.9 C 62 10 L 131/62 99 Exam (Neuro) Physical Exam: General Exam: GEN: NAD, lying in bed HEENT: No conjunctival injection, no rhinorrhea. CV: RRR, no peripheral edema PULM: Nonlabored respirations on room air. Neuro Exam: MS: Drowsy, easily arousable to noxious stimuli and voice. Oriented to self only, limited speech but no aphasia, minimal dysarthria noted. Slightly inattentive. Cognition and memory grossly impaired. Intermittently follows commands CN: BTT. PERRLA OU. Eyes midline with no gaze preference. Facial muscles full and symmetric. MOTOR: BUEs antigravity without drift (had component of waxy flexibility to them), BLEs antigravity with slow drift to bed. Can wiggle toes without difficulty REFLEXES: 1+ at biceps, triceps, brachioradialis, 1+ patella and Achilles bilaterally. Flexor plantar responses bilaterally. SENSORY: Intact to LT throughout COORDINATION: no dysmetria on observed movements GAIT: deferred given physical/mental status PG Care Time/CCT Total # of Minutes Spent Total Time Spent with Patient: Total time spent is greater than 50% in coordination of care (as documented) at patient's floor/unit and/or counseling patient: Coding Level of Care Code 36784 Subseq Hosp Care Lvl 3 Diagnoses AMS (altered mental status) R41.82 Cirrhosis K74.60 Macrocytic anemia D53.9 Acute hypernatremia E87.0 Seizure disorder G40.909 Dementia F03.91 Dementia behavioral disturbance: with behavioral disturbance Dementia type: unspecified type (1) Dementia Dementia behavioral disturbance: with behavioral disturbance Dementia type: unspecified type Qualified Code(s): F03.91 - Unspecified dementia with behavioral disturbance
--- NOTE | 2020-12-09 11:28 | Hospitalist Progress Note ---
Date of Service December 09, 2020 Assessment & Plan (1) AMS (altered mental status): Metabolic/infectious encephalopathy, possibly due to hypernatremia and fluid deficit. Also concern for infectious causes. - Her ammonia level was 40 on 12/07. Improved to 19 on 12/08 with lactulose. - Patient had Klebsiella in her urine (not blood); untreated so far. - Will consider treating this after LP tomorrow. - Consulted neurology: Plan for LP and MRI likely on Thursday. - Will need computer help desk representative to turn off vagal nerve stimulator for MRI. - May consider workup for syphilis as well. (2) Generalized epilepsy: Neurology weighing in on anti-epileptic medications. - Continue Keppra 1.5 g BID, lacosamide 200 mg twice daily, zonisamide 300mg QPM - Plan to slowly wean/discontinued zonisamide which isn't ideal for liver/renal dysfunction. (3) Acute hypernatremia: Na was 156 on 12/05 at admission. - Sodium has improved with IV fluids and increased free water flushes. Now down to 142 on 12/09. - Consulted dietary to continue her PEG feeds. - May not have been getting high enough free water at skilled facility. Will adjust and provide recs on discharge. (4) Macrocytic anemia: Unclear cause of this. B12 was 1200 and folate was >20 on 09/2020. No alcohol intake. Retic index indicates hyperproliferation (1.9 retic index). - Monitor (5) Hypothyroidism: TSH was 4.14 this admission. - Continue levothyroxine 88 mcg PO daily. (6) Depression with anxiety: Unclear when this diagnosis was made as she presently does not respond to me. - Continue citalopram 10mg PO daily & donepezil 10 mg PEG daily (7) Gout: No acute flares. - Continue allopurinol 300mg PO daily (8) Constipation: Looser stools mentioned on last checks on 12/03 & 12/07. - Monitor BMs. (9) Severe protein-calorie malnutrition: Due to illness. - Consulted dietary for PEG feeds. - Continue supplements: thiamine, B12, folate (10) DVT prophylaxis: Lovenox 40mg SQ daily Admission and Anticipated Discharge Date Admission Date: December 06, 2020 Subjective No response today. Review of Systems Review of Systems: Unobtainable due to cognitive status Physical Exam Constitutional: WD/WN, vitals as above no acute distress Eyes: EOM intact bilaterally; no conjunctival abnormality ENMT: external ear and nose normal, oropharynx normal Neck: trachea midline, no thyromegaly normal visual inspection Respiratory: normal respiratory effort, lungs clear to auscultation no respiratory distress Cardiovascular: RRR, no murmur, no edema Gastrointestinal (Abdomen): Inspection/Auscultation: abdomen normal to inspection; abdomen not distended Musculoskeletal: no cyanosis or clubbing, extremities motor strength 5/5 Skin: no rashes, warm and dry Neurologic: moves all extremities and awake Psychiatric: Orientation: alert and cooperative; + not oriented to person Results & Data Results & Data ([facility]) Vital Signs (Past 12 Hours) Vital Signs Temp Pulse Resp BP Pulse Ox 12/09/20 11:03 36.9 C 59 L 20 123/64 97 12/09/20 07:25 37.1 C 60 20 110/63 97 12/09/20 04:07 36.5 C 65 20 139/74 96 PG Care Time/CCT Total # of Minutes Spent Total Time Spent with Patient: Total time spent is greater than 50% in coordination of care (as documented) at patient's floor/unit and/or counseling patient: Coding Level of Care Code 79327 Subseq Hosp Care Lvl 3 Diagnoses AMS (altered mental status) R41.82 Generalized epilepsy G40.309 Acute hypernatremia E87.0 Macrocytic anemia D53.9 Hypothyroidism E03.9 Depression with anxiety F41.8 Gout M10.9 Constipation K59.00 Severe protein-calorie malnutrition E43 DVT prophylaxis Z29.9
[2020-12-09] MEDS: SIMVASTATIN 40 MG TAB PEG SCH (20:10)
[2020-12-09] MEDS: ZONISAMIDE 100 MG CAPSULE PO SCH (21:00)
[2020-12-09] MEDS: PEPTAMEN 1.5 CAL 1,000 ML BAG PEG SCH (22:51)
[2020-12-10] MEDS: TUBE FEEDING WATER FLUSH PEG SCH ×6 (00:34→20:04)
[2020-12-10] MEDS: LEVOTHYROXINE SODIUM 88 MCG TABLET PEG SCH (06:12)
[2020-12-10 07:05] LABS: Hematocrit (blood only) 34.3 % (37-47); Hemoglobin 11.8 g/dL (12.0-16.0); Mean Corpuscular Hemoglobin 34.8 pg (25-34); Mean Corpuscular Hgb Conc 34.4 g/dL (32-36); Mean Corpuscular Volume 101.2 fL (80-100); Mean Platelet Volume 11.2 fL (7.4-10.4); Platelet Count 139 K/uL (130-400); RDW Coefficient of Variation 14.8 % (11.5-14.5); RDW Standard Deviation 54.5 fL (36.4-46.3); Red Blood Count 3.39 M/uL (4.2-5.4); White Blood Count 6.43 K/uL (4.8-10.8)
[2020-12-10] MEDS: levETIRAcetam ORAL SOLN 100MG/ML PEG SCH ×2 (07:41→20:06)
[2020-12-10] MEDS: CALCIUM CARBONATE 1,250 MG/5 ML UDC PEG SCH ×2 (07:42→20:06)
[2020-12-10] MEDS: allopurinoL 300 MG TAB PEG SCH (07:42)
[2020-12-10] MEDS: CYANOCOBALAMIN 500 MCG TABLET (VITAMIN B-12) PEG SCH (07:42)
[2020-12-10] MEDS: LANSOPRAZOLE 15 MG SOLTAB PEG SCH (07:43)
[2020-12-10] MEDS: DONEPEZIL HCL 10 MG TAB PEG SCH (07:43)
[2020-12-10] MEDS: LACOSAMIDE 50 MG TABLET PO SCH ×2 (07:43→21:21)
[2020-12-10] MEDS: FOLIC ACID 1 MG TAB PEG SCH (07:43)
[2020-12-10] MEDS: THIAMINE HCL 100 MG TAB PEG SCH (07:44)
[2020-12-10] MEDS: CITALOPRAM 20 MG TAB PEG SCH (07:44)
[2020-12-10 07:46] LABS: Albumin Level 2.4 gm/dl (3.4-5.0); BUN Creatinine Ratio 42.8 (10-20); Calcium 8.1 mg/dl (8.5-10.1); Creatinine Clr Calc Pharmacy 151.4 ml/min; Est GFR (African American) 134.7; Est GFR (Non-African American) 116.2; Magnesium 2.2 mg/dl (1.8-2.4); Potassium 3.6 mmol/L (3.5-5.1)
[2020-12-10 07:48] LABS: Albumin Globulin Ratio 0.9 (0.9-2); Bilirubin,Total 0.1 mg/dl (0.2-1); Globulin 2.6 gm/dl (2.5-4.0)
[2020-12-10] MEDS: ENOXAPARIN INJ 40 MG/0.4 ML SYR SQ SCH (08:30)
[2020-12-10 09:02] LABS: Partial Thromboplastin Ratio 0.8; Partial Thromboplastin Time 21.6 Seconds (21.0-31.0); Prothrombin Time 10.2 Seconds (9.0-12.0)
--- NOTE | 2020-12-10 10:15 | Neurology Progress Note ---
Date of Service December 10, 2020 Assessment & Plan (1) Dementia: (2) AMS (altered mental status): (3) Acute hypernatremia: (4) Seizure disorder: (5) Macrocytic anemia: (6) Cirrhosis: The patient has a history of seizure disorder fairly well controlled on levetiracetam. in addition she has a history of dementia, depression, macrocytic anemia, and cirrhosis. She came into the hospital December 06 with altered mental status and acute hyponatremia (156). currently, her sodium is normal at 141. She is calm, without agitation or delirium. She has a significant dementia with some pseudobulbar affect. Her encephalopathy was likely a combination of urinary tract infection, hypernatrem ia, and acute kidney issues. Her encephalopathy has resolved and these issues have been addressed. Recommendations: 1. Patient is scheduled for lumbar puncture. 2. an MRI was desired but the presence of her vagal nerve stimulator precludes obtaining this test. 3. continue citalopram And donepezil. 4. continue lacosamide 200 mg twice a day. 5. continue levetiracetam 1500 mg twice daily 6. keep Zonegran 3 mg at bedtime. This could be tapered off in future. Overall, I spent a total of 35 minutes with this case including review of records, direct evaluation the patient at bedside, and discussion of the case with Dr. Jones, including differential diagnosis and treatment options. Admission and Anticipated Discharge Date Admission Date: December 06, 2020 Subjective This morning, the patient has no complaint of pain. She is laying in bed fairly calm making eye contact but saying very little. Blood pressure is 115/60 with a pulse of 60 and regular. She is afebrile. O2 saturations 94%. Chem profile and CBC were largely unremarkable although she h as a mild anemia. Sodium was 141. She has had no seizures in the hospital. Results & Data ([facility]) Vital Signs (Past 12 Hours) Vital Signs Temp Pulse Pulse Resp BP Pulse Ox 12/10/20 07:19 37 C 60 18 115/60 94 12/10/20 02:22 36.5 C 53 L 16 128/65 99 12/10/20 00:16 63 12/09/20 22:38 37.1 C 61 18 160/70 H 96 Exam (Neuro) Physical Exam: She is awake and alert. Speech is very sparse but not dysarthric. She will follow some 1 step commands involving simple physical tasks but she will not answer questions including knowing her name. When I gave her a series of 3 names to pick out she did not react to her correct name either. She has some frequent laughter with her responses of an inappropriate nature. Her neck is stiff but she is resisting. Her limbs have some rigidity but again she resists me moving limbs. Strength seems 5/5 in the upper extremities bilaterally diffusely and symmetrically. Strength is close to 5/5 in the legs bilaterally as well. Reflexes are 2/4 in the arms and 1/4 in the legs with downgoing toes to plantar stimulation bilaterally. There are no abnormal involuntary movements noted. There is no facial droop and tongue is midline. Extraocular eye muscles are intact without nystagmus. Pupils are 3 mm bilaterally reactive to light. PG Care Time/CCT Total # of Minutes Spent Total Time Spent with Patient: Total time spent is greater than 50% in coordination of care (as documented) at patient's floor/unit and/or counseling patient: Coding Level of Care Code 65895 Subseq Hosp Care Lvl 3 Diagnoses Dementia F03.91 Dementia behavioral disturbance: with behavioral disturbance Dementia type: unspecified type AMS (altered mental status) R41.82 Acute hypernatremia E87.0 Seizure disorder G40.909 Macrocytic anemia D53.9 Cirrhosis K74.60 Time Spent (min) 35 (1) Dementia Dementia behavioral disturbance: with behavioral disturbance Dementia type: unspecified type Qualified Code(s): F03.91 - Unspecified dementia with behavioral disturbance
--- NOTE | 2020-12-10 11:20 | Hospitalist Progress Note ---
Date of Service December 10, 2020 Assessment & Plan (1) AMS (altered mental status): Metabolic/infectious encephalopathy, possibly due to hypernatremia and fluid deficit. Also concern for infectious causes. - Her ammonia level was 40 on 12/07. Improved to 19 on 12/08 with lactulose. - Patient had Klebsiella in her urine (not blood); untreated so far. Given lack of fever, WBC, feel it is unlikely this is infection and likely just asymptomatic bacteruria. - Consulted neurology: Plan for LP today. 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 (2) Generalized epilepsy: Neurology weighing in on anti-epileptic medications. - Continue Keppra 1.5 g BID, lacosamide 200 mg twice daily, zonisamide 300mg QPM - Plan to slowly wean/discontinued zonisamide which isn't ideal for liver/renal dysfunction. (3) Acute hypernatremia: Na was 156 on 12/05 at admission. - Sodium has improved with IV fluids and increased free water flushes. Now down to 141 on 12/10. - Consulted dietary to continue her PEG feeds. - May not have been getting high enough free water at skilled facility. Will adjust and provide recs on discharge. (4) Macrocytic anemia: Unclear cause of this. B12 was 1200 and folate was >20 on 09/2020. No alcohol intake. Retic index indicates hyperproliferation (1.9 retic index). - Monitor (5) Hypothyroidism: TSH was 4.14 this admission. - Continue levothyroxine 88 mcg PO daily. (6) Depression with anxiety: Unclear when this diagnosis was made as she presently does not respond to me. - Continue citalopram 10mg PO daily & donepezil 10 mg PEG daily (7) Gout: No acute flares. - Continue allopurinol 300mg PO daily (8) Constipation: Looser stools mentioned on last checks on 12/03 & 12/07. - Monitor BMs. (9) Severe protein-calorie malnutrition: Due to illness. - Consulted dietary for PEG feeds. - Continue supplements: thiamine, B12, folate (10) DVT prophylaxis: Lovenox 40mg SQ daily Admission and Anticipated Discharge Date Admission Date: December 06, 2020 Subjective No response today. Review of Systems Review of Systems: Unobtainable due to cognitive status Physical Exam Constitutional: WD/WN, vitals as above no acute distress Eyes: EOM intact bilaterally; no conjunctival abnormality ENMT: external ear and nose normal, oropharynx normal Neck: trachea midline, no thyromegaly normal visual inspection Respiratory: normal respiratory effort, lungs clear to auscultation no respiratory distress Cardiovascular: RRR, no murmur, no edema Gastrointestinal (Abdomen): Inspection/Auscultation: abdomen normal to inspection; abdomen not distended Musculoskeletal: no cyanosis or clubbing, extremities motor strength 5/5 Skin: no rashes, warm and dry Neurologic: moves all extremities and awake Psychiatric: Orientation: alert and cooperative; + not oriented to person Results & Data Results & Data ([facility]) Vital Signs (Past 12 Hours) Vital Signs Temp Pulse Pulse Resp BP Pulse Ox 12/10/20 11:15 36.4 C L 63 18 127/72 97 12/10/20 07:45 61 12/10/20 07:19 37 C 60 18 115/60 94 12/10/20 02:22 36.5 C 53 L 16 128/65 99 12/10/20 00:16 63 PG Care Time/CCT Total # of Minutes Spent Total Time Spent with Patient: Total time spent is greater than 50% in coordination of care (as documented) at patient's floor/unit and/or counseling patient: Coding Level of Care Code 20375 Subseq Hosp Care Lvl 2 Diagnoses AMS (altered mental status) R41.82 Generalized epilepsy G40.309 Acute hypernatremia E87.0 Macrocytic anemia D53.9 Hypothyroidism E03.9 Depression with anxiety F41.8 Gout M10.9 Constipation K59.00 Severe protein-calorie malnutrition E43 DVT prophylaxis Z29.9
--- NOTE | 2020-12-10 14:00 | Fluoroscopy Report ---
FL lumbar puncture diagnostic CLINICAL HISTORY: 75 years-old Female with r/o autoimmune encephalitis or [employer] RPR. Acutely altered m ental status. PROCEDURE: The risks, benefits, and alternatives to the procedure is discussed with the patient who v oiced understanding. Written informed consent was obtained. The patient was placed prone on the fluor oscopy table. The lower back was prepped and draped in the usual sterile fashion. 1% lidocaine was us ed for local anesthesia. A 20-gauge spinal needle was inserted into the L4-L5 interlaminar space, and approximately 10 cc of clear colorless cerebrospinal fluid was removed. The patient was agitated thr oughout the study and had difficulty holding still however otherwise tolerated the procedure well. Th ere were no immediate complications. The patient was then transported to the medical treatment unit f or further observation. Fluoroscopy time: 0.2 minutes IMPRESSION: Fluoroscopic guided lumbar puncture with removal of approximately 10 cc of cerebrospinal fluid. There were no immediate complications. ACT 112: Negative or not required by law. The above report was generated using voice recognition software. It may contain grammatical, syntax o r spelling errors. Electronically signed by: Vadim Mckeon M.D. 12/10/2020 1:58 PM
[2020-12-10 14:10] LABS: Appearance CSF Clear; CSF Count Tube # 4; CSF Xanthrochromic No xanthochromia; Color CSF Colorless; Red Blood Cell CSF (A) 0 /uL (0-); Red Blood Cell CSF (B) 0 /uL (0-); White Blood Cell CSF (A) 0 /uL (0-5); White Blood Cell CSF (B) 0 /uL (0-5)
[2020-12-10 14:11] LABS: Total Protein CSF 80.4 mg/dl (15-45)
[2020-12-10 15:20] LABS: Cryptococcus neoformans/ga PCR Not Detected (NotDetected); Cytomegalovirus PCR Not Detected (NotDetected); Enterovirus PCR Not Detected (NotDetected); Escherichia coli K1 PCR Not Detected (NotDetected); Haemophilius influenzae PCR Not Detected (NotDetected); Herpes Simplex Virus 1 PCR Not Detected (NotDetected); Herpes Simplex Virus 2 PCR Not Detected (NotDetected); Human Herpes Virus 6 PCR Not Detected (NotDetected); Human Parechovirus PCR Not Detected (NotDetected); Listeria monocytogenes PCR Not Detected (NotDetected); Neisseria meningitidis PCR Not Detected (NotDetected); Streptococcus agalactiae PCR Not Detected (NotDetected); Streptococcus pneumoniae PCR Not Detected (NotDetected); Varicella Zoster Virus PCR Not Detected (NotDetected)
[2020-12-10] MEDS: SIMVASTATIN 40 MG TAB PEG SCH (20:05)
[2020-12-10] MEDS: ZONISAMIDE 100 MG CAPSULE PO SCH (21:22)
[2020-12-11] MEDS: TUBE FEEDING WATER FLUSH PEG SCH ×6 (00:06→21:09)
[2020-12-11] MEDS: PEPTAMEN 1.5 CAL 1,000 ML BAG PEG SCH (02:10)
[2020-12-11 07:48] LABS: Hemoglobin 11.5 g/dL (12.0-16.0); Mean Corpuscular Hemoglobin 35.5 pg (25-34); Mean Corpuscular Hgb Conc 34.8 g/dL (32-36); Mean Corpuscular Volume 101.9 fL (80-100); Mean Platelet Volume 10.9 fL (7.4-10.4); Platelet Count 132 K/uL (130-400); RDW Coefficient of Variation 14.7 % (11.5-14.5); RDW Standard Deviation 55.1 fL (36.4-46.3); Red Blood Count 3.24 M/uL (4.2-5.4); White Blood Count 6.19 K/uL (4.8-10.8)
[2020-12-11] MEDS: LEVOTHYROXINE SODIUM 88 MCG TABLET PEG SCH (08:21)
[2020-12-11 08:24] LABS: BUN Creatinine Ratio 59.8 (10-20); Calcium 8.7 mg/dl (8.5-10.1); Creatinine Clr Calc Pharmacy 162.1 ml/min; Est GFR (Non-African American) 119.1; Potassium 3.7 mmol/L (3.5-5.1)
[2020-12-11 08:28] LABS: Magnesium 2.1 mg/dl (1.8-2.4)
[2020-12-11] MEDS: THIAMINE HCL 100 MG TAB PEG SCH (09:00)
[2020-12-11] MEDS: LANSOPRAZOLE 15 MG SOLTAB PEG SCH (09:47)
[2020-12-11] MEDS: levETIRAcetam ORAL SOLN 100MG/ML PEG SCH ×2 (09:47→21:47)
[2020-12-11] MEDS: DONEPEZIL HCL 10 MG TAB PEG SCH (09:48)
[2020-12-11] MEDS: ENOXAPARIN INJ 40 MG/0.4 ML SYR SQ SCH (09:48)
[2020-12-11] MEDS: FOLIC ACID 1 MG TAB PEG SCH (09:48)
[2020-12-11] MEDS: allopurinoL 300 MG TAB PEG SCH (09:49)
[2020-12-11] MEDS: LACOSAMIDE 50 MG TABLET PO SCH ×2 (09:49→21:41)
[2020-12-11] MEDS: CYANOCOBALAMIN 500 MCG TABLET (VITAMIN B-12) PEG SCH (09:49)
[2020-12-11] MEDS: CALCIUM CARBONATE 1,250 MG/5 ML UDC PEG SCH ×2 (09:49→21:47)
[2020-12-11] MEDS: CITALOPRAM 20 MG TAB PEG SCH (09:49)
--- NOTE | 2020-12-11 12:29 | Hospitalist Progress Note ---
Date of Service December 11, 2020 Assessment & Plan (1) AMS (altered mental status): Metabolic/infectious encephalopathy, possibly due to hypernatremia and fluid deficit. Also concern for infectious causes. - Her ammonia level was 40 on 12/07. Improved to 19 on 12/08 with lactulose. - Patient had Klebsiella in her urine (not blood). Given lack of fever, WBC, feel it is unlikely this is infection and likely just asymptomatic bacteruria. - Consulted neurology: LP on 12/11 without acute infectious signs. BioFire negative. High protein. - MRI ordered again on 12/11 after working with [employer] who manufactured her VNS implant. - Per neurology (who knows her longer-term), she was improving on Thursday. Today she is some better and able to answer more questions. (2) Generalized epilepsy: Neurology weighing in on anti-epileptic medications. - Continue Keppra 1.5 g BID, lacosamide 200 mg twice daily, zonisamide 300mg QPM - Plan to slowly wean/discontinued zonisamide which isn't ideal for liver/renal dysfunction. (3) Acute hypernatremia: Na was 156 on 12/05 at admission. - Sodium has improved with IV fluids and increased free water flushes. Now down to 141 on 12/10. Stable. - Consulted dietary to continue her PEG feeds. - May not have been getting high enough free water at skilled facility. Will adjust and provide recs on discharge. (4) Macrocytic anemia: Unclear cause of this. B12 was 1200 and folate was >20 on 09/2020. No alcohol intake. Retic index indicates hyperproliferation (1.9 retic index). - Monitor (5) Hypothyroidism: TSH was 4.14 this admission. - Continue levothyroxine 88 mcg PO daily. (6) Depression with anxiety: Unclear when this diagnosis was made as she presently does not respond to me. - Continue citalopram 10mg PO daily & donepezil 10 mg PEG daily (7) Gout: No acute flares. - Continue allopurinol 300mg PO daily (8) Constipation: Looser stools mentioned on last checks on 12/03 & 12/07. - Monitor BMs. (9) Severe protein-calorie malnutrition: Due to illness. - Consulted dietary for PEG feeds. - Continue supplements: thiamine, B12, folate (10) DVT prophylaxis: Lovenox 40mg SQ daily Admission and Anticipated Discharge Date Admission Date: December 06, 2020 Subjective Not able to complete a full ROS today. She did answer her first name today, but could not answer her last name. When asked about other things like abdominal pain or shortness of breath, she mumbles and cannot give coherent answer. When asked where she is, she surveys her hospital room, but does not answer. Review of Systems Review of Systems: Unobtainable due to cognitive status Physical Exam Constitutional: WD/WN, vitals as above no acute distress Eyes: EOM intact bilaterally; no conjunctival abnormality ENMT: external ear and nose normal, oropharynx normal Neck: trachea midline, no thyromegaly normal visual inspection Respiratory: normal respiratory effort, lungs clear to auscultation no respiratory distress Cardiovascular: RRR, no murmur, no edema Gastrointestinal (Abdomen): Inspection/Auscultation: normal bowel sounds; + abdomen abnormal to inspection (PEG inserted) and abdomen not distended Percussion/Palpation: abdomen soft; abdomen nontender, no guarding and abdomen not rigid Musculoskeletal: no cyanosis or clubbing, extremities motor strength 5/5 Skin: no rashes, warm and dry Neurologic: moves all extremities and awake Psychiatric: Orientation: alert, oriented to person and cooperative; + not oriented to place and + not oriented to time Results & Data Results & Data ([facility]) Vital Signs (Past 12 Hours) Vital Signs Temp Pulse Pulse Pulse Resp BP Pulse Ox 12/11/20 11:38 36.6 C 58 L 18 107/68 99 12/11/20 08:02 36.5 C 59 L 18 111/65 97 12/11/20 07:23 59 L 12/11/20 03:55 36.3 C L 66 20 126/65 96 PG Care Time/CCT Total # of Minutes Spent Total Time Spent with Patient: Total time spent is greater than 50% in coordination of care (as documented) at patient's floor/unit and/or counseling patient: Coding Level of Care Code 77880 Subseq Hosp Care Lvl 2 Diagnoses AMS (altered mental status) R41.82 Generalized epilepsy G40.309 Acute hypernatremia E87.0 Macrocytic anemia D53.9 Hypothyroidism E03.9 Depression with anxiety F41.8 Gout M10.9 Constipation K59.00 Severe protein-calorie malnutrition E43 DVT prophylaxis Z29.9
[2020-12-11] MEDS: SIMVASTATIN 40 MG TAB PEG SCH (21:47)
[2020-12-11] MEDS: ZONISAMIDE 100 MG CAPSULE PO SCH (22:23)
[2020-12-12] MEDS: TUBE FEEDING WATER FLUSH PEG SCH ×6 (01:03→21:29)
[2020-12-12] MEDS: PEPTAMEN 1.5 CAL 1,000 ML BAG PEG SCH (02:00)
[2020-12-12] MEDS: ZONISAMIDE 100 MG CAPSULE PO SCH ×2 (03:10→21:13)
[2020-12-12] MEDS: LEVOTHYROXINE SODIUM 88 MCG TABLET PEG SCH (05:38)
[2020-12-12] MEDS: CITALOPRAM 20 MG TAB PEG SCH (10:39)
[2020-12-12] MEDS: LACOSAMIDE 50 MG TABLET PO SCH ×2 (10:39→21:13)
[2020-12-12] MEDS: THIAMINE HCL 100 MG TAB PEG SCH (10:41)
[2020-12-12] MEDS: allopurinoL 300 MG TAB PEG SCH (10:41)
[2020-12-12] MEDS: LANSOPRAZOLE 15 MG SOLTAB PEG SCH (10:41)
[2020-12-12] MEDS: DONEPEZIL HCL 10 MG TAB PEG SCH (10:42)
[2020-12-12] MEDS: ENOXAPARIN INJ 40 MG/0.4 ML SYR SQ SCH (10:42)
[2020-12-12] MEDS: CALCIUM CARBONATE 1,250 MG/5 ML UDC PEG SCH ×2 (10:42→21:07)
[2020-12-12] MEDS: CYANOCOBALAMIN 500 MCG TABLET (VITAMIN B-12) PEG SCH (10:42)
[2020-12-12] MEDS: FOLIC ACID 1 MG TAB PEG SCH (10:42)
[2020-12-12] MEDS: levETIRAcetam ORAL SOLN 100MG/ML PEG SCH ×2 (10:42→21:07)
[2020-12-12 12:56] LABS: Hemoglobin 11.1 g/dL (12.0-16.0); Mean Corpuscular Hemoglobin 34.9 pg (25-34); Mean Corpuscular Hgb Conc 34.7 g/dL (32-36); Mean Corpuscular Volume 100.6 fL (80-100); Mean Platelet Volume 10.6 fL (7.4-10.4); Platelet Count 128 K/uL (130-400); RDW Coefficient of Variation 14.4 % (11.5-14.5); RDW Standard Deviation 53.1 fL (36.4-46.3); Red Blood Count 3.18 M/uL (4.2-5.4); White Blood Count 5.93 K/uL (4.8-10.8)
[2020-12-12 13:31] LABS: BUN Creatinine Ratio 45.2 (10-20); Calcium 8.2 mg/dl (8.5-10.1); Creatinine Clr Calc Pharmacy 152.5 ml/min; Est GFR (African American) 134.7; Est GFR (Non-African American) 116.2; Potassium 3.4 mmol/L (3.5-5.1)
--- NOTE | 2020-12-12 14:48 | Hospitalist Progress Note ---
Date of Service December 12, 2020 Assessment & Plan (1) AMS (altered mental status): Metabolic/infectious encephalopathy, possibly due to hypernatremia and fluid deficit. Also concern for infectious causes. - Her ammonia level was 40 on 12/07. Improved to 19 on 12/08 with lactulose. - Patient had Klebsiella in her urine (not blood). Given lack of fever, WBC, feel it is unlikely this is infection and likely just asymptomatic bacteruria. - Consulted neurology: LP on 12/11 without acute infectious signs. BioFire negative. High protein. - Per neurology (who knows her longer-term), she was improving on Thursday. - MRI ordered again on 12/11 -> Will be done tomorrow around noon. (2) Generalized epilepsy: Neurology weighing in on anti-epileptic medications. - Continue Keppra 1.5 g BID, lacosamide 200 mg twice daily, zonisamide 300mg QPM - Plan to slowly wean/discontinued zonisamide which isn't ideal for liver/renal dysfunction. (3) Acute hypernatremia: Na was 156 on 12/05 at admission. - Sodium has improved with IV fluids and increased free water flushes. Now down to 139 on 12/12. Stable. - Consulted dietary to continue her PEG feeds. - May not have been getting high enough free water at skilled facility. Will adjust and provide recs on discharge. (4) Macrocytic anemia: Unclear cause of this. B12 was 1200 and folate was >20 on 09/2020. No alcohol intake. Retic index indicates hyperproliferation (1.9 retic index). - Monitor (5) Hypothyroidism: TSH was 4.14 this admission. - Continue levothyroxine 88 mcg PO daily. (6) Depression with anxiety: Unclear when this diagnosis was made as she presently does not respond to me. - Continue citalopram 10mg PO daily & donepezil 10 mg PEG daily (7) Gout: No acute flares. - Continue allopurinol 300mg PO daily (8) Constipation: Looser stools mentioned on last checks on 12/03 & 12/07. - Monitor BMs. (9) Severe protein-calorie malnutrition: Due to illness. - Consulted dietary for PEG feeds. - Continue supplements: thiamine, B12, folate (10) DVT prophylaxis: Lovenox 40mg SQ daily Admission and Anticipated Discharge Date Admission Date: December 06, 2020 Subjective Interesting interview today where she said some spontaneous sentences such as "I slept well last night." but then also doesn't answer most questions like her first name or yes/no questions to various symptoms. She will listen to the question, then just say, "Ahhhhhh..." and trail off. Review of Systems Review of Systems: Unobtainable due to cognitive status Physical Exam Constitutional: WD/WN, vitals as above no acute distress Eyes: EOM intact bilaterally; no conjunctival abnormality ENMT: external ear and nose normal, oropharynx normal Neck: trachea midline, no thyromegaly normal visual inspection Respiratory: normal respiratory effort, lungs clear to auscultation no respiratory distress Cardiovascular: RRR, no murmur, no edema Gastrointestinal (Abdomen): Inspection/Auscultation: normal bowel sounds; + abdomen abnormal to inspection (PEG inserted) and abdomen not distended Percussion/Palpation: abdomen soft; abdomen nontender, no guarding and abdomen not rigid Musculoskeletal: no cyanosis or clubbing, extremities motor strength 5/5 Skin: no rashes, warm and dry Neurologic: moves all extremities and awake Psychiatric: Orientation: alert and cooperative; + not oriented to person, + not oriented to place and + not oriented to time Results & Data Results & Data ([facility]) Vital Signs (Past 12 Hours) Vital Signs Temp Pulse Resp BP Pulse Ox 12/12/20 08:05 36.8 C 66 18 127/61 98 PG Care Time/CCT Total # of Minutes Spent Total Time Spent with Patient: Total time spent is greater than 50% in coordination of care (as documented) at patient's floor/unit and/or counseling patient: Coding Level of Care Code 08893 Subseq Hosp Care Lvl 2 Diagnoses AMS (altered mental status) R41.82 Generalized epilepsy G40.309 Acute hypernatremia E87.0 Macrocytic anemia D53.9 Hypothyroidism E03.9 Depression with anxiety F41.8 Gout M10.9 Constipation K59.00 Severe protein-calorie malnutrition E43 DVT prophylaxis Z29.9
[2020-12-12] MEDS: ACETAMINOPHEN SUSP 325 MG/10.15 ML UDC PEG PRN ×2 (14:54→23:37)
--- NOTE | 2020-12-12 17:03 | Communication Note ---
Date of Service: December 12, 2020 Discussed with Zhane, the VNS device rep. She will turn off the VNS device temporarily while the patient undergoes MRI, then turn it back on.
[2020-12-12] MEDS: SIMVASTATIN 40 MG TAB PEG SCH (21:07)
[2020-12-13] MEDS: TUBE FEEDING WATER FLUSH PEG SCH ×6 (00:40→20:35)
[2020-12-13] MEDS: PEPTAMEN 1.5 CAL 1,000 ML BAG PEG SCH ×2 (02:56→21:25)
[2020-12-13] MEDS: LEVOTHYROXINE SODIUM 88 MCG TABLET PEG SCH (05:19)
[2020-12-13 06:47] LABS: Hematocrit (blood only) 32.7 % (37-47); Hemoglobin 11.2 g/dL (12.0-16.0); Mean Corpuscular Hemoglobin 34.8 pg (25-34); Mean Corpuscular Hgb Conc 34.3 g/dL (32-36); Mean Corpuscular Volume 101.6 fL (80-100); Mean Platelet Volume 10.7 fL (7.4-10.4); Platelet Count 139 K/uL (130-400); RDW Coefficient of Variation 14.4 % (11.5-14.5); RDW Standard Deviation 53.7 fL (36.4-46.3); Red Blood Count 3.22 M/uL (4.2-5.4); White Blood Count 5.96 K/uL (4.8-10.8)
[2020-12-13 07:23] LABS: BUN Creatinine Ratio 54.7 (10-20); Calcium 8.2 mg/dl (8.5-10.1); Creatinine Clr Calc Pharmacy 173.4 ml/min; Est GFR (Non-African American) 119.1; Magnesium 2.1 mg/dl (1.8-2.4); Potassium 3.9 mmol/L (3.5-5.1)
[2020-12-13] MEDS: LACOSAMIDE 50 MG TABLET PO SCH ×2 (10:13→21:18)
[2020-12-13] MEDS: THIAMINE HCL 100 MG TAB PEG SCH (10:14)
[2020-12-13] MEDS: LANSOPRAZOLE 15 MG SOLTAB PEG SCH (10:14)
[2020-12-13] MEDS: CITALOPRAM 20 MG TAB PEG SCH (10:14)
[2020-12-13] MEDS: levETIRAcetam ORAL SOLN 100MG/ML PEG SCH ×2 (10:14→21:24)
[2020-12-13] MEDS: FOLIC ACID 1 MG TAB PEG SCH (10:14)
[2020-12-13] MEDS: allopurinoL 300 MG TAB PEG SCH (10:14)
[2020-12-13] MEDS: DONEPEZIL HCL 10 MG TAB PEG SCH (10:14)
[2020-12-13] MEDS: CYANOCOBALAMIN 500 MCG TABLET (VITAMIN B-12) PEG SCH (10:14)
[2020-12-13] MEDS: CALCIUM CARBONATE 1,250 MG/5 ML UDC PEG SCH ×2 (10:14→20:36)
[2020-12-13] MEDS: ENOXAPARIN INJ 40 MG/0.4 ML SYR SQ SCH (10:14)
[2020-12-13] MEDS ORDERED: LORazepam 0.5 MG TAB ONE (11:40)
[2020-12-13] MEDS: ACETAMINOPHEN SUSP 325 MG/10.15 ML UDC PEG PRN ×2 (11:42→23:01)
[2020-12-13] MEDS ORDERED: LORazepam 0.5 MG TAB PO STA (11:44)
--- NOTE | 2020-12-13 11:56 | Hospitalist Progress Note ---
Date of Service December 13, 2020 Assessment & Plan (1) AMS (altered mental status): Metabolic/infectious encephalopathy, possibly due to hypernatremia and fluid deficit. Also concern for infectious causes. - Her ammonia level was 40 on 12/07. Improved to 19 on 12/08 with lactulose. - Patient had Klebsiella in her urine (not blood). Given lack of fever, WBC, feel it is unlikely this is infection and likely just asymptomatic bacteruria. - Consulted neurology: LP on 12/11 without acute infectious signs. BioFire negative. High protein. - Per neurology (who knows her longer-term), she was improving on Thursday. - MRI ordered again on 12/11 -> No acute abnormality. Worsening microvascular changes. - Plan for discharge back to [facility] tomorrow. (2) Generalized epilepsy: Neurology weighing in on anti-epileptic medications. - Continue Keppra 1.5 g BID, lacosamide 200 mg twice daily, zonisamide 300mg QPM - Plan to slowly wean/discontinued zonisamide which isn't ideal for liver/renal dysfunction. (3) Acute hypernatremia: Na was 156 on 12/05 at admission. - Sodium has improved with IV fluids and increased free water flushes. Now down to 139 on 12/12. Stable. - Consulted dietary to continue her PEG feeds. - May not have been getting high enough free water at skilled facility. Will adjust and provide recs on discharge. (4) Macrocytic anemia: Unclear cause of this. B12 was 1200 and folate was >20 on 09/2020. No alcohol intake. Retic index indicates hyperproliferation (1.9 retic index). - Monitor (5) Hypothyroidism: TSH was 4.14 this admission. - Continue levothyroxine 88 mcg PO daily. (6) Depression with anxiety: Unclear when this diagnosis was made as she presently does not respond to me. - Continue citalopram 10mg PO daily & donepezil 10 mg PEG daily (7) Gout: No acute flares. - Continue allopurinol 300mg PO daily (8) Constipation: Looser stools mentioned on last checks on 12/03 & 12/07. - Monitor BMs. (9) Severe protein-calorie malnutrition: Due to illness. - Consulted dietary for PEG feeds. - Continue supplements: thiamine, B12, folate (10) DVT prophylaxis: Lovenox 40mg SQ daily I spent > 35 minutes with the patient today: in her room during the morning exam, present during portions of MRI preparation, and then returning to her room later in the day to monitor her post-MRI. Admission and Anticipated Discharge Date Admission Date: December 06, 2020 Subjective Continues to have an improving exam, though still not able to complete ROS. When asked how she slept last night, she answers "I slept very well." but then for other questions, she just says "Ahhh..." or trails off. Says yes to most ROS today, but inconsistently. Physical Exam Constitutional: WD/WN, vitals as above no acute distress Eyes: EOM intact bilaterally; no conjunctival abnormality ENMT: external ear and nose normal, oropharynx normal Neck: trachea midline, no thyromegaly normal visual inspection Respiratory: normal respiratory effort, lungs clear to auscultation no respiratory distress Cardiovascular: RRR, no murmur, no edema Gastrointestinal (Abdomen): Inspection/Auscultation: normal bowel sounds; + abdomen abnormal to inspection (PEG inserted) and abdomen not distended Percussion/Palpation: abdomen soft; abdomen nontender, no guarding and abdomen not rigid Musculoskeletal: no cyanosis or clubbing, extremities motor strength 5/5 Skin: no rashes, warm and dry Neurologic: moves all extremities and awake Psychiatric: Orientation: alert and cooperative; + not oriented to person, + not oriented to place and + not oriented to time Results & Data Results & Data ([facility]) Vital Signs (Past 12 Hours) Vital Signs Temp Pulse Pulse Resp BP Pulse Ox 12/13/20 09:48 36.8 C 59 L 16 114/65 99 12/13/20 07:30 69 18 118/56 L PG Care Time/CCT Total # of Minutes Spent Total Time Spent with Patient: Total time spent is greater than 50% in coordination of care (as documented) at patient's floor/unit and/or counseling patient: Coding Level of Care Code 10506 Subseq Hosp Care Lvl 3 Diagnoses AMS (altered mental status) R41.82 Generalized epilepsy G40.309 Acute hypernatremia E87.0 Macrocytic anemia D53.9 Hypothyroidism E03.9 Depression with anxiety F41.8 Gout M10.9 Constipation K59.00 Severe protein-calorie malnutrition E43 DVT prophylaxis Z29.9
--- NOTE | 2020-12-13 13:13 | Magnetic Resonance Report ---
MR brain wo con HISTORY: 75 years-old Female Concern for dementia vs. encephalopathy chronic memory loss. COMPARISON: Head CT 09/19/2020, brain MRI 05/25/2017 TECHNIQUE: Multiplanar multisequence MRI of the brain was obtained without the use of IV contrast. FINDINGS: There is no restricted diffusion to suggest acute or subacute infarct. Motion degraded exam. Mildly p rogressed moderate T2 hyperintense foci throughout the white matter of the cerebral hemispheres. Mild age-related involutional changes. No acute intracranial hemorrhage, midline shift, abnormal extra ax ial collection, hydrocephalus or intracranial mass. The cerebral venous sinuses and major arterial fl ow voids are patent. Trace left mastoid effusion. Mild mucosal thickening of the ethmoid sinuses. Shellie or bilateral lens repair. Skull, orbits and soft tissues are otherwise unremarkable. IMPRESSION: 1. No acute intracranial abnormality. 2. Age-related involutional changes with progressively worsened T2 hyperintense foci throughout the w alexia matter suggestive of chronic microvascular ischemic disease. ACT 112: Negative or not required by law. The above report was generated using voice recognition software. It may contain grammatical, syntax o r spelling errors. Electronically signed by: Chas Mckeon M.D. 12/13/2020 1:11 PM
[2020-12-13] MEDS: ZONISAMIDE 100 MG CAPSULE PO SCH (21:18)
[2020-12-13] MEDS: SIMVASTATIN 40 MG TAB PEG SCH (21:19)
[2020-12-13] MEDS: CEFDINIR 125 MG/5 ML 60 ML BTL PO SCH (21:20)
[2020-12-14] MEDS: TUBE FEEDING WATER FLUSH PEG SCH ×5 (00:24→16:39)
[2020-12-14] MEDS: ACETAMINOPHEN SUSP 325 MG/10.15 ML UDC PEG PRN (03:31)
[2020-12-14] MEDS: LEVOTHYROXINE SODIUM 88 MCG TABLET PEG SCH (06:21)
[2020-12-14 06:32] LABS: BUN Creatinine Ratio 59.1 (10-20); Calcium 8.2 mg/dl (8.5-10.1); Est GFR (African American) 136.3; Est GFR (Non-African American) 117.6; Potassium 3.4 mmol/L (3.5-5.1)
[2020-12-14] MEDS: CALCIUM CARBONATE 1,250 MG/5 ML UDC PEG SCH (08:36)
[2020-12-14] MEDS: THIAMINE HCL 100 MG TAB PEG SCH (08:36)
[2020-12-14] MEDS: CITALOPRAM 20 MG TAB PEG SCH (08:36)
[2020-12-14] MEDS: LANSOPRAZOLE 15 MG SOLTAB PEG SCH (08:36)
[2020-12-14] MEDS: FOLIC ACID 1 MG TAB PEG SCH (08:36)
[2020-12-14] MEDS: CYANOCOBALAMIN 500 MCG TABLET (VITAMIN B-12) PEG SCH (08:36)
[2020-12-14] MEDS: allopurinoL 300 MG TAB PEG SCH (08:36)
[2020-12-14] MEDS: CEFDINIR 125 MG/5 ML 60 ML BTL PO SCH (08:36)
[2020-12-14] MEDS: DONEPEZIL HCL 10 MG TAB PEG SCH (08:36)
[2020-12-14] MEDS: levETIRAcetam ORAL SOLN 100MG/ML PEG SCH (08:37)
[2020-12-14] MEDS: ENOXAPARIN INJ 40 MG/0.4 ML SYR SQ SCH (08:37)
[2020-12-14] MEDS: LACOSAMIDE 50 MG TABLET PO SCH (08:38)
[2020-12-14] MEDS: POTASSIUM CHLORIDE / WTR 10 MEQ/100 ML PLCT IV SCH ×4 (13:28→16:40)
[2020-12-18 07:56] LABS: Albumin 2.6 g/dL (3.2-4.6); Albumin, CSF 37.3 mg/dL (8.0-42.0); IgG CSF 5.9 mg/dL (0.8-7.7); IgG Serum 687 mg/dL (600-1540); Myelin Basic Protein <2.0 mcg/L (2.0-4.0); Synthesis Rate, IgG CSF 5.4 mg/24 h (-9.9-3.3); VDRL Qualitative CSF Nonreactive (Nonreactive)
--- NOTE | 2020-12-21 10:22 | Discharge Summary ---
Date of Service December 14, 2020 Admission HPI Per Admitting Provider Faye Aragon is a 75-year-old female who presents to the ER from [facility] due to hypernatremia. Unable to get any history from the patient. Awake to voice but making mumbling noises only. Per ER discussion with her daughter she does note worsening altered mental state over the past 2 days. She was sent over the [facility] due to hypernatremia noted on outpatient labs. Free water through the PEG tube was increased to 250ml Q4H however her Na continued to increase. The patient had a complex significant recent hospitalization for altered mental status requiring ICU admission. I admitted this patient who was mostly obtunded with altered mental state on September 14, 2020. Her family reported generalized decline since clovis COVID-19 (although her daughter noted she did "very well" with this initially but declined on moving back to the [facility] after quarantine). There is significant concern that the patient has been giving morphine in her long-term without knowledge from her family although this does not appear to have been confirmed. She was diagnosed with ISIDRO (on lasix), UTI, hypernatremia due to poor oral intake, recent changes to citalopram/mirtazapine, possible seizures and concern for progressive dementia. Her decline appeared to be significant over that time even though she was in a long-term she was very independent. Despite treatment for the hyponatremia and UTI she did not appear to improve. Follow-up CT was concerning for colitis and she was initially treated with Zosyn however C. difficile was subsequently positive and she was treated for this at [facility]. She ultimately transferred to [facility] for continuous EEG monitoring on September 19. She had one episode of a seizure while at [facility] likely due to her not receiving one of her medications as it was nonformulary here. She also underwent EGD and colonoscopy due to bright red blood per rectum requiring 1 unit blood transfusion. Colonoscopy revealed mucosal ulceration possibly from recent enemas versus solitary rectal ulcer. There were no signs of active or recent bleeding on EGD. PEG tube was placed by IR on 09/28/2020 as she continued to not be able to eat or drink. Discharged on October 02, 2020 back to [facility]. Her sodium appears to have been stable initially at 144 on November 06, 2020. Per ER note she has stopped eating and drinking over the last few days and her sodium increased to 156 yesterday. This has been associated with worsening mental status changes. I tried calling her daughter however no answer on number provided. In the ER she was initially given a normal saline bolus of 500 mL however this was switched to D5W once her sodium level came back at 156. She is referred to medicine for admission ongoing management of hypernatremia. Principal Diagnosis Altered mental status Discharge Exam Constitutional: WD/WN, vitals as above no acute distress Eyes: EOM intact bilaterally; no conjunctival abnormality ENMT: external ear and nose normal, oropharynx normal Neck: trachea midline, no thyromegaly normal visual inspection Respiratory: normal respiratory effort, lungs clear to auscultation no respiratory distress Cardiovascular: RRR, no murmur, no edema Gastrointestinal (Abdomen): Inspection/Auscultation: normal bowel sounds; + abdomen abnormal to inspection (PEG inserted) and abdomen not distended Percussion/Palpation: abdomen soft; abdomen nontender, no guarding and abdomen not rigid Musculoskeletal: no cyanosis or clubbing, extremities motor strength 5/5 Skin: no rashes, warm and dry Neurologic: moves all extremities and awake Psychiatric: Orientation: alert and cooperative; + not oriented to person, + not oriented to place and + not oriented to time Discharge Data Allergies Allergy/AdvReac Type Severity Reaction Status Date / Time hydrocortisone Allergy Intermediate DELIRIUM Verified 12/06/20 13:36 phenobarbital Allergy Intermediate RASH Verified 12/06/20 13:36 lamotrigine Allergy Unknown RASH Verified 12/06/20 13:36 hydrocodone Allergy Unknown Verified 12/06/20 13:36 acetaminophen AdvReac Unknown GI SYMPTOMS Verified 12/06/20 13:36 Consultations 12/06/20 14:15 Consult Gastroenterology Routine 12/06/20 14:24 ED Decision to Admit Stat 12/08/20 11:04 Consult Neurology Routine Ordered Studies 12/10/20 09:15 FL lumbar puncture diagnostic Routine 12/13/20 00:00 MR brain wo con Routine Hospital Course (1) AMS (altered mental status): Metabolic/infectious encephalopathy, possibly due to hypernatremia and fluid deficit. Also concern for infectious causes. - Her ammonia level was 40 on 12/07. Improved to 19 on 12/08 with lactulose. - Patient had Klebsiella in her urine (not blood). Given lack of fever, WBC, feel it is unlikely this is infection and likely just asymptomatic bacteruria. - Consulted neurology: LP on 12/11 without acute infectious signs. BioFire negative. High protein. - Per neurology (who knows her longer-term), she was improving on Thursday. - MRI ordered again on 12/11 -> No acute abnormality. Worsening microvascular changes. - Plan for discharge back to [facility] Acute uncomplicated UTI Added cefdinir x 5 days as patient was having some discomfort from urination. (2) Generalized epilepsy: Neurology weighing in on anti-epileptic medications. - Continue Keppra 1.5 g BID, lacosamide 200 mg twice daily, zonisamide 300mg QPM - Plan to slowly wean/discontinued zonisamide which isn't ideal for liver/renal dysfunction. (3) Acute hypernatremia: Na was 156 on 12/05 at admission. - Sodium has improved with IV fluids and increased free water flushes. Now down to 139 on 12/12. Stable. - Consulted dietary to continue her PEG feeds. - May not have been getting high enough free water at skilled facility. Will adjust and provide recs on discharge. (4) Macrocytic anemia: Unclear cause of this. B12 was 1200 and folate was >20 on 09/2020. No alcohol intake. Retic index indicates hyperproliferation (1.9 retic index). - Monitor (5) Hypothyroidism: TSH was 4.14 this admission. - Continue levothyroxine 88 mcg PO daily. (6) Depression with anxiety: Unclear when this diagnosis was made as she presently does not respond to me. - Continue citalopram 10mg PO daily & donepezil 10 mg PEG daily (7) Gout: No acute flares. - Continue allopurinol 300mg PO daily (8) Constipation: Looser stools mentioned on last checks on 12/03 & 12/07. - Monitor BMs. (9) Severe protein-calorie malnutrition: Due to illness. - Consulted dietary for PEG feeds. - Continue supplements: thiamine, B12, folate (10) DVT prophylaxis: Lovenox 40mg SQ daily I spent > 35 minutes with the patient today: in her room during the morning exam, present during portions of MRI preparation, and then returning to her room later in the day to monitor her post-MRI. Total Time Total Time Spent Total Time Spent (In Minutes): 32 Discharge Plan Discharge Items Patient Disposition: Transfer [facility] Reason For Visit: HYPERNATREMIA, HYPERCHLOREMIA Discharge Diagnosis: Hypernatremia, altered mental status Activity: Resume your previous activity Non-emergency contact: Primary Care Provider and Neurologist Call non-emergency contact if: your symptoms worsen and your temperature is above 101 Follow-up/Referrals: Astrid Carrillo MD [Physician] - (Please see Dr. Carrillo in 2-4 weeks.) [facility] [Primary Care Provider] - Diet: Nothing by Mouth Addtl Attending Provider Instructions: Admitted for hypernatremia. On a higher free water flush, her sodium came down and was a steady 139-140 for several days prior to discharge. TWO JUDSON HN 1 CAN 4 TIMES A DAY (675 ML per day) Free water flushes 300 mL Q6h (1,200 mL per day) She had extensive work-up for meningitis/encephalitis and other causes of altered mental status with some CSF labs still pending for things such as multiple sclerosis and spontaneous Creutzfeldt-Elvin disease. Two seizure medications were changed: 1) Keppra increased to 1,500 mg PEG BID 2) Zonisamide decreased to 300 mg PEG HS On 12/13, she was started on cefdinir suspension 300 mg PEG BID for 5 days. I think this is an uncomplicated UTI as the RN noted some discomfort with urination. I DO NOT think this has any role in her altered mental status as she has been steadily improving without any antibiotic treatment prior to December 13. Recommend biweekly BMP to monitor sodium/potassium for next 2 weeks. If numbers remain normal, may transition to once a week testing, Pending Studies at Discharge: Yes Studies:: CSF studies Stand-Alone Forms: My [facility] Skilled Items Patient informed of condition?: No DNR: No Discharge Level of Care: Skilled Communicable Disease: No Discharge Prognosis: Improving Lines: None Urinary Catheter: No Medications and DC Order Prescriptions: New cefdinir 125 mg/5 mL Suspension For Reconstitution 300 mg PO Q12 Qty: 0 RF: 0 Continued calcium carbonate 500 mg calcium (1,250 mg) Capsule 500 mg feeding tube BID RF: 0 simvastatin 40 mg tablet 40 mg feeding tube QPM RF: 0 cyanocobalamin (vitamin B-12) [Vitamin B-12] 500 mcg Tablet 500 mcg feeding tube QAM RF: 0 bisacodyl [Dulcolax (bisacodyl)] 10 mg Suppository 10 mg KS UD PRN (Reason: Q72HRS PRN CONSTIPATION) RF: 0 folic acid 1 mg tablet 1 mg feeding tube QAM RF: 0 acetaminophen [Tylenol] 325 mg Capsule 650 mg feeding tube QID PRN (Reason: Fever Or Pain) RF: 0 cholecalciferol (vitamin D3) 1,250 mcg (50,000 unit) capsule 50,000 unit feeding tube WK RF: 0 Vimpat 200 mg Tablet 200 mg feeding tube Q12H RF: 0 thiamine HCl (vitamin B1) 100 mg Tablet 100 mg feeding tube DAILY RF: 0 potassium chloride 20 mEq/15 mL liquid 20 meq feeding tube TID RF: 0 allopurinol 300 mg tablet 300 mg feeding tube QAM RF: 0 carboxymethylcellulose sodium 1 % Drops, Liquid Gel 2 drp OPHTHALMIC (EYE) BID PRN (Reason: Dry Eye(S)) RF: 0 citalopram 10 mg/5 mL Solution 10 mg feeding tube DAILY RF: 0 eyelid cleansers Pad 1 pad TOPICAL TID PRN (Reason: IRRITATION) RF: 0 sodium chloride 0.65 % Drops 1 drp INTRANASAL QID PRN (Reason: Congestion) RF: 0 levothyroxine 88 mcg tablet 88 mcg feeding tube DAILY RF: 0 magnesium hydroxide [Milk of Magnesia] 400 mg/5 mL Suspension 30 ml PO HS PRN (Reason: Constipation) RF: 0 Fleet Enema 19-7 gram/118 mL Enema 118 ml KS DAILY PRN (Reason: Constipation) RF: 0 omeprazole 20 mg Capsule,Delayed Release(Dr/Ec) 40 mg feeding tube DAILY RF: 0 donepezil 10 mg tablet,disintegrating 10 mg feeding tube DAILY RF: 0 Changed levetiracetam 100 mg/mL solution 1,500 mg feeding tube BID Qty: 0 RF: 0 Discontinued zonisamide 100 mg capsule 400 mg feeding tube PM RF: 0 ibuprofen 600 mg tablet 600 mg PO DAILY PRN (Reason: Pain) RF: 0 No Action haloperidol lactate 2 mg/mL concentrate 0.25 mg PO Q4H PRN (Reason: agitation) RF: 0 zonisamide [Zonegran] 100 mg capsule See Rx Instructions PO DAILY Qty: 42 RF: 0 Discharge Orders: Discharge Order (Routine); Ordered 12/14/20 Ordered By: Nathan Roque Admission Data Admit Date/Time: 12/06/20 13:45 Attending Provider: Nathan Roque Admit Provider: Jerry Meza Primary Care Provider: [facility] Other Providers: [facility] ; Ildefonso Jones ; Manuel Weeks ; Astrid Carrillo ; Jerry Meza Other Interventions: Discharge Summary Assessment (RN) Last Done: 12/14/20 16:24 Coding Level of Care Code D/C Day Management >30 mins Diagnoses AMS (altered mental status) R41.82 Generalized epilepsy G40.309 Acute hypernatremia E87.0 Macrocytic anemia D53.9 Hypothyroidism E03.9 Depression with anxiety F41.8 Gout M10.9 Constipation K59.00 Severe protein-calorie malnutrition E43 DVT prophylaxis Z29.9 Time Spent (min) 32
== END 2020-12-14 18:13 | DRG 640 ==
LOC: ED 11:36 → 2N 13:45 → SUATTDRO 13:45 → 2N 18:00 → 3E 12-12 03:17